=== PATIENT | female | born 1975 | race Asian ===

== ENCOUNTER 2022-06-22 11:40 | Outpatient (CLI) | payer BC, SELFPAY ==
--- OUTSIDE RECORDS SUMMARY | 2022-06-22 11:51 | XMS_ITS | Clinical Summary ---
:1975 Author Organization [facility] Address [address] [place] [address] Care Team Providers Name Role Phone Unavailable Primary Care Provider Unavailable Source Comments Patient records contain information from all sites at [facility]. For routine questions regarding patient records, call [phone] during business hours, M-F 8:00 AM - 5:00 PM Central Time. Record requests for emergency care only can be directed to [phone] at any time.[facility] Allergies No known active allergies Medications No known medications Active Problems No known active problems Immunizations Name Administration Dates Next Due Influenza (IM) Preservative Free 09/05/2008 Influenza Split 08/31/2002 Social History Tobacco Use Types Packs/Day Years Used Date Smoking Tobacco: Never Sex Assigned at Date Recorded Not on file Last Filed Vital Signs Vital Sign Reading Time Taken Comments Blood Pressure 100/50 09/28/2014 2:23 PM CASH MANAGER Pulse 80 09/28/2014 2:23 PM CASH MANAGER Temperature - - Respiratory Rate - - Oxygen Saturation - - Inhaled Oxygen Concentration - - Weight 51.1 kg (112 lb 10.5 oz) 09/28/2014 2:23 PM CASH MANAGER Height - - Body Mass Index - - Plan of Treatment Upcoming Encounters Date Type Specialty Care Team Description 08/18/2022 Comprehensive Visit Ophthalmology Elvin Villalba M.D. [address] [place], [place] [phone] (Wo rk) Health Maintenance Due Date Last Done Comments CT Colonography 1975 Cologuard 1975 Colonoscopy 1975 Colorectal Cancer Screening 1975 FIT 1975 Fasting Glucose for 1975 Diabetes Screening Fasting Lipid Panel 1975 HIV Screening 1975 Hepatitis B Vaccines (1 of 1975 3 - 3-dose series) Hepatitis C Screening 1975 Mammogram 1975 COVID-19 Vaccine (3 - 08/27/2021 03/27/2021, 02/27/2021 Booster for Moderna series) Depression Screening 11/01/2021 (Annual PHQ-2) Influenza Vaccine (#1) 2022 11/15/2017, 09/05/2008, 08/31/2002, Additional history exists Cervical Cancer Screening 04/18/2024 04/18/2021 DTaP,Tdap,and Td Vaccines 06/03/2025 06/03/2015 (2 - Td or Tdap) Pneumococcal vaccine (0-64 Aged Out No lo nger eligible years) based on patient 's age to complete this topic Insurance Payer Benefit Plan Subscriber ID Effective Phone Address Typ e / Group Dates BLUE CROSS BCBS BLUE [id number] 2019-Prese ATTN: Guilherme reyes HMO BLUE SHIELD PLUS O [facility] [address] [address] [place] [address]
--- OUTSIDE RECORDS SUMMARY | 2022-06-22 11:51 | XMS_ITS | Encounter Summary ---
:1975 Author Organization [facility] Address [address] [place] [address] Care Team Providers Name Role Phone Unavailable Primary Care Provider Unavailable Encounter Details Date Type Department Care Team Description 07/31/2008 Hospital Encounter HX [facility] ED Ruthie Blanchard, RShayNShay [address] [address] (Wo rk) Social History Tobacco Use Types Packs/Day Years Used Date Smoking Tobacco: Never Assessed Sex Assigned at Date Recorded Not on file documented as of this encounter Plan of Treatment Upcoming Encounters Date Type Specialty Care Team Description 08/18/2022 Comprehensive Visit Ophthalmology Elvin Villalba M.D. [address] [place], [place] [phone] (Wo rk) documented as of this encounter Visit Diagnoses Not on filedocumented in this encounter
--- OUTSIDE RECORDS SUMMARY | 2022-06-22 11:51 | XMS_ITS | Encounter Summary ---
:1975 Author Organization [facility] Address [address] [place] [address] Care Team Providers Name Role Phone Unavailable Primary Care Provider Unavailable Encounter Details Date Type Department Care Team Description 01/18/2017 Hospital Encounter HX [facility] Horacio Collins M.D. [address] [phone] (Wo rk) Social History Tobacco Use Types Packs/Day Years Used Date Smoking Tobacco: Never Sex Assigned at Date Recorded Not on file documented as of this encounter Progress Notes Elvin Hill M.D. - 01/18/2017 9:45 AM CDT [id number] The documentation for this visit is available in [facility] IMPRESSION/REPORT/PLAN #1 Myopia both eyes. Mild. #2 Dry eyes, both. Plan: Rx glasses. Ocular lubricants twice daily. F/u as needed. CE/ref Elvin Hill M.D./dmycndi Electronically Signed By: ELVIN HILL MD On: 01/22/2017 07:49 AM Source: [facility] [email or web address] Document Id: [id number] documented in this encounter Miscellaneous Notes Miscellaneous - Elvin Hill M.D. - 01/18/2017 10:26 AM CDT Ambulatory Patient Summary [facility] [address] [place] [id number] Visit Information Name: KAYLEE MARTINS [facility] Number: [id number] Current Date: 01/18/2017 10:26:55 Physicians Attending Provider: ELVIN HILL MD Primary Care Provider: PCP, BRENNEN KAYLEE MARTINS has been given the following list of follow-up instructions, medication list, and patient education materials: Follow-up Instructions Your Medications Here is a list of your medications. It is important to take your medications as directed. Use a pillbox or chart to help remind you to take your medications. Please let your doctor or nurse know if you have problems taking your medications. Medication/Strength How to Take Indications/Special Instructions/Comments/Notes for Patient Medication Changes/Routing loratadine (loratadine 10 mg oral tablet) 1 Tablet(s), Oral, once a day as needed for Allergy symptoms Stop Taking the Following Medications: Medication list as of 01-18-17 10:26 Attention: If you have any medications at home that are not on this list, DO NOT take them until youcontact your provider for clarification. Give a copy of your medication list to your primary care provider. Update your medication list any time medications or doses are changed and carry your medication list at all times in case of emergency. Electronically Signed By: ELVIN HILL MD Signed On:18-JAN-2017 10:26:53 Your Allergies & Intolerances Substance Reaction Symptoms Category Comments No Known Allergies Drug Your Problem List Problem Status Onset Comments No Problems found Your Upcoming Appointments Date Time Location Provider No Appointments found Attention: Contact your local Clinic if further appointment detail needed. Consider Using Patient Online Services Patient Online Services is a secure online and Mobile application that lets you: ?? View lab and test results ?? View portions of your medical record including clinical notes, immunizations and discharge summaries ?? Request an appointment or medication refill ?? Review your appointment schedule ?? Send secure messages to your care team Its easy to create an account if you dont have one. Go to [email or web address] and click on Create Your Account. Then, follow the directions to complete the online form. Youll be asked for your [facility] number which you can find at the top of this document. Your Goals/Additional instructions: Source: [facility] POWERCHART Document Id: [id number] Miscellaneous - Elvin Hill M.D. - 01/18/2017 10:26 AM CDT Ambulatory Discharge Medication List [facility] [address] [place] [id number] Visit Information Name: KAYLEE MARTINS [facility] Number: [id number] Current Date: 01/18/2017 10:26:54 Attending Provider: ELVIN HILL MD Primary Care Provider: PCP, ELSEWHERE KAYLEE MARTINS has been given the following list of medications: Your Medications It is important to take your medications as directed. Use a pill box or chart to help remind you to take your medications. Please let your doctor or nurse know if you have problems taking your medications. Medication/Strength How to Take Indications/Special Instructions/Comments/Notes for Patient Medication Changes/Routing loratadine (loratadine 10 mg oral tablet) 1 Tablet(s), Oral, once a day as needed for Allergy symptoms Stop Taking the Following Medications: Medication list as of 01-18-17 10:26 Attention: If you have any medications at home that are not on this list, DO NOT take them until youcontact your provider for clarification. Give a copy of your medication list to your primary care provider. Update your medication list any time medications or doses are changed and carry your medication list at all times in case of emergency. Electronically Signed By: ELVIN HILL MD Signed On:18-JAN-2017 10:26:53 Additional Information: Source: [facility] POWERCHART Document Id: [id number] documented in this encounter Plan of Treatment Upcoming Encounters Date Type Specialty Care Team Description 08/18/2022 Comprehensive Visit Ophthalmology Elvin Hill M.D. [address] [phone] (Wo rk) documented as of this encounter Visit Diagnoses Not on filedocumented in this encounter
--- OUTSIDE RECORDS SUMMARY | 2022-06-22 11:51 | XMS_ITS | Encounter Summary ---
:1975 Author Organization [facility] Address [address] [place] [address] Care Team Providers Name Role Phone Unavailable Primary Care Provider Unavailable Encounter Details Date Type Department Care Team Description 02/25/2021 Orders Only [facility] PCP [facility] Sa teddy Smart M.D. [address] [place], [place] [phone] (Sarah nunez) Social History Tobacco Use Types Packs/Day Years Used Date Smoking Tobacco: Never Sex Assigned at Date Recorded Not on file documented as of this encounter Plan of Treatment Upcoming Encounters Date Type Specialty Care Team Description 08/18/2022 Comprehensive Visit Ophthalmology Elvin Villalba M.D. [address] [place], [place] [phone] (Wo rk) documented as of this encounter Visit Diagnoses Not on filedocumented in this encounter
--- OUTSIDE RECORDS SUMMARY | 2022-06-22 11:51 | XMS_ITS | Encounter Summary ---
:1975 Author Organization [facility] Address [address] [place] [address] Care Team Providers Name Role Phone Unavailable Primary Care Provider Unavailable Encounter Details Date Type Department Care Team Description 09/05/2008 Hospital Encounter HX [facility] Stephan Wallace M.D. [address] [place], [place] [address] (Wo rk) Social History Tobacco Use Types Packs/Day Years Used Date Smoking Tobacco: Never Assessed Sex Assigned at Date Recorded Not on file documented as of this encounter Plan of Treatment Upcoming Encounters Date Type Specialty Care Team Description 08/18/2022 Comprehensive Visit Ophthalmology Elvin Villalba M.D. [address] [place], [place] [phone] (Wo rk) documented as of this encounter Visit Diagnoses Not on filedocumented in this encounter
--- OUTSIDE RECORDS SUMMARY | 2022-06-22 11:51 | XMS_ITS | Encounter Summary ---
:1975 Author Organization [facility] Address [address] [place] [address] Care Team Providers Name Role Phone Unavailable Primary Care Provider Unavailable Encounter Details Date Type Department Care Team Description 07/31/2008 Hospital Encounter HX [facility] Stephan Wallace M.D. [address] [place], [place] [address] (Wo rk) Social History Tobacco Use Types Packs/Day Years Used Date Smoking Tobacco: Never Assessed Sex Assigned at Date Recorded Not on file documented as of this encounter Plan of Treatment Upcoming Encounters Date Type Specialty Care Team Description 08/18/2022 Comprehensive Visit Ophthalmology Elvin Villalba M.D. [address] [place], [place] [phone] (Wo rk) documented as of this encounter Visit Diagnoses Not on filedocumented in this encounter
--- OUTSIDE RECORDS SUMMARY | 2022-06-22 11:51 | XMS_ITS | Encounter Summary ---
:1975 Author Organization [facility] Address [address] [place] [address] Care Team Providers Name Role Phone Unavailable Primary Care Provider Unavailable Reason for Referral Outpatient (Routine) - Closed Specialty Diagnoses / Procedures Referred By Contact Refer red To Contact Ophthalmology Elvin Villalba M.D. [facility] Region [address] [place] [phone] Referral ID Status Reason Start Date Expiration Date Visits Requ ested Visits Authorized [id number] Closed 05/13/2020 05/13/2021 1 1 Encounter Details Date Type Department Care Team Description 05/13/2020 Comprehensive Visit Department of Elvin Villalba Senile Nuclear Sclerosis Bilateral (Primary Dx); Ophthalmology omari Velasquez M.D. Myopia Bilateral [place], [place] [address] [place] [phone] Social History Tobacco Use Types Packs/Day Years Used Date Smoking Tobacco: Never Sex Assigned at Date Recorded Not on file documented as of this encounter Progress Notes Elvin Villalba M.D. - 05/13/2020 1:45 PM CDT Ivett Alexander was seen today for No chief complaint on file. #1 Myopia Bilateral #2 Cataract Senile Nuclear Sclerosis Bilateral Plan: Update glasses as desired. U/v protection. Ocular lubricants twice daily. F/u one year for routine exam or as needed. cex/ref documented in this encounter Plan of Treatment Upcoming Encounters Date Type Specialty Care Team Description 08/18/2022 Comprehensive Visit Ophthalmology Elvin Villalba M.D. [address] [place], [place] [phone] (Wo rk) Scheduled Referrals Name Type Priority Associated Order Schedule Diagnoses Ophthalmology office Outpatient Referral Routine Expected: visit (clinic) 05/13/2021 (Approximate), Expires: 05/13/2023 documented as of this encounter Visit Diagnoses Diagnosis Cataract Senile Nuclear Sclerosis Bilate ral - Primary Myopia Bilateral documented in this encounter
--- OUTSIDE RECORDS SUMMARY | 2022-06-22 11:51 | XMS_ITS | Encounter Summary ---
:1975 Author Organization [facility] Address [address] [place] [address] Care Team Providers Name Role Phone Unavailable Primary Care Provider Unavailable Reason for Referral Outpatient (Routine) - Closed Specialty Diagnoses / Procedures Referred By Contact Refer red To Contact Ophthalmology Elvin Villalba M.D. [facility] [address] [place] [phone] Referral ID Status Reason Start Date Expiration Date Visits Requ ested Visits Authorized [id number] Closed 04/18/2018 04/18/2019 1 1 Reason for Visit Reason Comments Eye Exam Outpatient (Routine) - Closed Specialty Diagnoses / Procedures Referred By Contact Refer red To Contact Diagnoses Dry Eye Syndrome Bilateral Elvin Villalba M.D. [address] [place] [address] Referral ID Status Reason Start Date Expiration Date Visits Requ ested Visits Authorized [id number] Closed 08/13/2017 02/09/2018 1 1 Encounter Details Date Type Department Care Team Description 04/18/2018 Office Visit Department of Elvin Villalba Myopia Bila teral (Primary Dx); Ophthalmology in [place] Dry Eye Syndrome Bilateral [place], [place] [address] [place] [phone] Social History Tobacco Use Types Packs/Day Years Used Date Smoking Tobacco: Never Sex Assigned at Date Recorded Not on file documented as of this encounter Progress Notes Elvin Villalba M.D. - 04/18/2018 1:10 PM CDT Ivett Alexander was seen today for Eye Exam #1 Dry Eye Syndrome Bilateral #2 Myopia Bilateral Plan: Update glasses as desired. U/v protection. Ocular lubricants twice daily. F/u one year for routine exam or as needed. cex/ documented in this encounter Plan of Treatment Upcoming Encounters Date Type Specialty Care Team Description 08/18/2022 Comprehensive Visit Ophthalmology Elvin Villalba M.D. [address] [place] [phone] (Wo rk) Scheduled Referrals Name Type Priority Associated Order Schedule Diagnoses Ophthalmology office Outpatient Referral Routine Expected: visit (clinic) 04/18/2019 (Approximate), Expires: 04/18/2021 documented as of this encounter Visit Diagnoses Diagnosis Myopia Bilateral - Primary Dry Eye Syndrome Bilateral documented in this encounter
--- OUTSIDE RECORDS SUMMARY | 2022-06-22 11:51 | XMS_ITS | Encounter Summary ---
:1975 Author Organization [facility] Address [address] [place] [address] Care Team Providers Name Role Phone Unavailable Primary Care Provider Unavailable Reason for Referral Outpatient (Routine) - Closed Specialty Diagnoses / Procedures Referred By Contact Refer red To Contact Procedures Elvin Villalba M.D. [facility] General eye exam [address] [place] [phone] Referral ID Status Reason Start Date Expiration Date Visits Requ ested Visits Authorized [id number] Closed 06/16/2021 06/16/2022 1 1 Reason for Visit Reason Comments Eye Exam Outpatient (Routine) - Closed Specialty Diagnoses / Procedures Referred By Contact Refer red To Contact Ophthalmology Elvin Villalba M.D. [facility] [address], [place] [address] Referral ID Status Reason Start Date Expiration Date Visits Requ ested Visits Authorized [id number] Closed 05/13/2020 05/13/2021 1 1 Encounter Details Date Type Department Care Team Description 06/16/2021 Comprehensive Visit Department of Elvin Villalba Myopia Bilateral (Primary Dx); Ophthalmology omari Velasquez M.D. Dry Eye Syndrome Bilateral; [place], [place] [address] Keratitis Superficial Bilate ral [address] [place] [phone] Social History Tobacco Use Types Packs/Day Years Used Date Smoking Tobacco: Never Sex Assigned at Date Recorded Not on file documented as of this encounter Progress Notes Elvin Villalba M.D. - 06/16/2021 9:45 AM CDT Ivett Alexander was seen today for Eye Exam #1 Myopia Bilateral #2 Dry Eye Syndrome Bilateral #3 Keratitis Superficial Bilateral Plan: Update glasses as desired. U/v protection. Ocular lubricants twice daily. F/u one year for routine exam or as needed. cex/ref documented in this encounter Plan of Treatment Upcoming Encounters Date Type Specialty Care Team Description 08/18/2022 Comprehensive Visit Ophthalmology Elvin Villalba M.D. [address] [place], [place] [phone] (Wo rk) Scheduled Orders Name Type Priority Associated Diagnoses Order S chedule OPH General eye exam Procedures Routine Expecte d: 06/16/2022 (Approximate), Expires: 06/16/2024 documented as of this encounter Visit Diagnoses Diagnosis Myopia Bilateral - Primary Dry Eye Syndrome Bilateral Keratitis Superficial Bilateral documented in this encounter
--- OUTSIDE RECORDS SUMMARY | 2022-06-22 11:51 | XMS_ITS | Encounter Summary ---
:1975 Author Organization [facility] Address [address] [place] [address] Care Team Providers Name Role Phone Unavailable Primary Care Provider Unavailable Encounter Details Date Type Department Care Team Description 09/28/2014 Hospital Encounter HX NO MAPPING Meir Mares M.D. [address] [place], [place] [phone] (Wo rk) Social History Tobacco Use Types Packs/Day Years Used Date Smoking Tobacco: Never Assessed Sex Assigned at Date Recorded Not on file documented as of this encounter Plan of Treatment Upcoming Encounters Date Type Specialty Care Team Description 08/18/2022 Comprehensive Visit Ophthalmology Elvin Villalba M.D. [address] [place], [place] [phone] (Wo rk) documented as of this encounter Visit Diagnoses Not on filedocumented in this encounter
--- OUTSIDE RECORDS SUMMARY | 2022-06-22 11:51 | XMS_ITS | Encounter Summary ---
:1975 Author Organization [facility] Address [address] [place] [address] Care Team Providers Name Role Phone Unavailable Primary Care Provider Unavailable Reason for Visit Reason Comments Eye Exam Outpatient (Routine) - Closed Specialty Diagnoses / Procedures Referred By Contact Refer red To Contact Ophthalmology Elvin Villalba M.D. [facility] [address] [place] [phone] Referral ID Status Reason Start Date Expiration Date Visits Requ ested Visits Authorized [id number] Closed 04/18/2018 04/18/2019 1 1 Encounter Details Date Type Department Care Team Description 04/17/2019 Comprehensive Visit Department of Elvin Villalba Myopia Bilateral (Primary Dx); Ophthalmology omari Velasquez M.D. Cataract Senile Nuclear Sclerosis [place], [place] [address] [place] [phone] Social History Tobacco Use Types Packs/Day Years Used Date Smoking Tobacco: Never Sex Assigned at Date Recorded Not on file documented as of this encounter Progress Notes Elvin Villalba M.D. - 04/17/2019 9:15 AM CDT Ivett Alexander was seen today for Eye Exam #1 Myopia Bilateral #2 Cataract Senile Nuclear Sclerosis Bilateral Plan: Update glasses as desired. U/v protection. Ocular lubricants twice daily. F/u one year for routine exam or as needed. cex/ref documented in this encounter Plan of Treatment Upcoming Encounters Date Type Specialty Care Team Description 08/18/2022 Comprehensive Visit Ophthalmology Elvin Villalba M.D. [address] [place], [place] [phone] (Wo rk) Scheduled Orders Name Type Priority Associated Diagnoses Order S chedule OPH General eye exam Procedures Routine Myopia Bilateral Exp ected: 04/17/2020 (Approximate), Expires: 04/17/2022 documented as of this encounter Visit Diagnoses Diagnosis Myopia Bilateral - Primary Cataract Senile Nuclear Sclerosis Bilate ral documented in this encounter
--- OUTSIDE RECORDS SUMMARY | 2022-06-22 11:51 | XMS_ITS | Encounter Summary ---
:1975 Author Organization [facility] Address [address] [place] [address] Care Team Providers Name Role Phone Unavailable Primary Care Provider Unavailable Encounter Details Date Type Department Care Team Description 01/18/2017 Hospital Encounter HX [facility] Horacio Villalba M.D. [address] [place], [place] [phone] (Wo rk) Social History Tobacco Use Types Packs/Day Years Used Date Smoking Tobacco: Never Sex Assigned at Date Recorded Not on file documented as of this encounter Plan of Treatment Upcoming Encounters Date Type Specialty Care Team Description 08/18/2022 Comprehensive Visit Ophthalmology Elvin Villalba M.D. [address] [place], [place] [phone] (Wo rk) documented as of this encounter Visit Diagnoses Not on filedocumented in this encounter
--- OUTSIDE RECORDS SUMMARY | 2022-06-22 11:51 | XMS_ITS | Encounter Summary ---
:1975 Author Organization [facility] Address [address] [place] [address] Care Team Providers Name Role Phone Unavailable Primary Care Provider Unavailable Encounter Details Date Type Department Care Team Description 01/18/[address] [facility] OPH Elvin Villalba M.D. [address], [place] [phone] (Wo rk) Social History Tobacco Use Types Packs/Day Years Used Date Smoking Tobacco: Never Sex Assigned at Date Recorded Not on file documented as of this encounter Progress Notes Elvin Villalba M.D. - 01/18/2017 9:49 AM CDT Eye General CHIEF COMPLAINT CE HISTORY OF PRESENT ILLNESS Here for an eye exam. Has been 3 to 4 yrs since she had her eyes checked. States night vision is notgood. IMPRESSION / REPORT / PLAN #1 Myopia both eyes. Mild. #2 Dry eyes, both. Plan: Rx glasses. Ocular lubricants twice daily. F/u as needed. CE/ref DIAGNOSIS #1 Myopia both eyes. Mild. #2 Dry eyes, both. CDM Reports - EYEGEN Id: [id number] Status: Fnl Electronically signed by Prieto [facility] Ophthalmology Notes [id number] at 04/21/2017 1:03 PM CDT documented in this encounter Plan of Treatment Upcoming Encounters Date Type Specialty Care Team Description 08/18/2022 Comprehensive Visit Ophthalmology Elvin Villalba M.D. [address], [place] [phone] (Wo rk) documented as of this encounter Visit Diagnoses Not on filedocumented in this encounter
--- OUTSIDE RECORDS SUMMARY | 2022-06-22 11:51 | XMS_ITS | Encounter Summary ---
:1975 Author Organization [facility] Address [address] [place] [address] Care Team Providers Name Role Phone Unavailable Primary Care Provider Unavailable Encounter Details Date Type Department Care Team Description 10/04/2008 Hospital Encounter [facility] Maykel Wright M.D. Social History Tobacco Use Types Packs/Day Years Used Date Smoking Tobacco: Never Assessed Sex Assigned at Date Recorded Not on file documented as of this encounter Plan of Treatment Upcoming Encounters Date Type Specialty Care Team Description 08/18/2022 Comprehensive Visit Ophthalmology Elvin Villalba M.D. [address] [place], [place] [phone] (Wo rk) documented as of this encounter Visit Diagnoses Not on filedocumented in this encounter
--- OUTSIDE RECORDS SUMMARY | 2022-06-22 11:51 | XMS_ITS | Encounter Summary ---
:1975 Author Organization [facility] Address [address] [place] [address] Care Team Providers Name Role Phone Unavailable Primary Care Provider Unavailable Encounter Details Date Type Department Care Team Description 08/06/2008 Hospital Encounter HX [facility] Stephan Wallace M.D. [address] [place], [place] [phone] (Wo rk) Social History Tobacco Use Types Packs/Day Years Used Date Smoking Tobacco: Never Assessed Sex Assigned at Date Recorded Not on file documented as of this encounter Plan of Treatment Upcoming Encounters Date Type Specialty Care Team Description 08/18/2022 Comprehensive Visit Ophthalmology Elvin Villalba M.D. [address] [place], [place] [phone] (Wo rk) documented as of this encounter Visit Diagnoses Not on filedocumented in this encounter
--- OUTSIDE RECORDS SUMMARY | 2022-06-22 11:51 | XMS_ITS | Encounter Summary ---
:1975 Author Organization [facility] Address [address] [place] [address] Care Team Providers Name Role Phone Unavailable Primary Care Provider Unavailable Reason for Referral Outpatient (Routine) - Closed Specialty Diagnoses / Procedures Referred By Contact Refer red To Contact Diagnoses Dry Eye Syndrome Bilateral Elvin Villalba M.D. [address] [place] [phone] Referral ID Status Reason Start Date Expiration Date Visits Requ ested Visits Authorized [id number] Closed 08/13/2017 02/09/2018 1 1 Encounter Details Date Type Department Care Team Description 08/13/2017 Orders Only Department of Elvin Villalba, Dry Eye Syn drome Ophthalmology in [place], [place] [address] [place] [phone] Social History Tobacco Use Types Packs/Day Years Used Date Smoking Tobacco: Never Sex Assigned at Date Recorded Not on file documented as of this encounter Plan of Treatment Upcoming Encounters Date Type Specialty Care Team Description 08/18/2022 Comprehensive Visit Ophthalmology Elvin Villalba M.D. [address] [place] [phone] (Wo rk) Scheduled Referrals Name Type Priority Associated Order Schedule Diagnoses Ophthalmology office Outpatient Referral Routine Dry Eye Syndr ome Expected: visit (clinic) Bilateral 01/18/2018 (Approximate), Expires: 01/22/2023 documented as of this encounter Visit Diagnoses Diagnosis Dry Eye Syndrome Bilateral documented in this encounter
--- OUTSIDE RECORDS SUMMARY | 2022-06-22 11:51 | XMS_ITS | Encounter Summary ---
:1975 Author Organization [facility] Address [address] [place] [address] Care Team Providers Name Role Phone Unavailable Primary Care Provider Unavailable Encounter Details Date Type Department Care Team Description 09/28/2014 Hospital Encounter HX [facility] URGENTCAR Justino Gallo M.D. [address] [place] [phone] (Wo mayra) Social History Tobacco Use Types Packs/Day Years Used Date Smoking Tobacco: Never Assessed Sex Assigned at Date Recorded Not on file documented as of this encounter Last Filed Vital Signs Vital Sign Reading Time Taken Comments Blood Pressure 100/50 09/28/2014 2:23 PM ACCOUNT PLANNER Pulse 80 09/28/2014 2:23 PM ACCOUNT PLANNER Temperature - - Respiratory Rate - - Oxygen Saturation - - Inhaled Oxygen Concentration - - Weight 51.1 kg (112 lb 10.5 oz) 09/28/2014 2:23 PM ACCOUNT PLANNER Height - - Body Mass Index - - documented in this encounter Progress Notes Arnold Gallo M.D. - 09/28/2014 1:58 PM CST [id number] HISTORY OF PRESENT ILLNESS Patient presents with a sore throat that started yesterday. She says it is somewhat uncomfortable toswallow. She wonders if it might be a fishbone stuck in her throat. She has not had a cough or nasaldrainage. No fever. No known exposure other than to eating a fish yesterday. She has not had this inthe past. She comes in with her son. MEDICATIONS Reviewed. ALLERGIES Reviewed. VITAL SIGNS Per EMR. She denies any risk of . PHYSICAL EXAMINATION TMs show evidence of fluid bilaterally but no infection. No sinus tenderness. No adenopathy in the neck. She complains of pain on the left thyroid area, deeper though. No superficial pain. Her mouth did not show any evidence of foreign body. IMPRESSION/REPORT/PLAN 1. Upper respiratory infection, probably viral. 2. Questionable foreign body in her throat. This could have already been dislodged. I recommended atthis time see if Lidia Sorenson would help and if it is not better next week she may need to see ENT for scoping. She will consider that. Contact her primary if this should worsen or not improve. Arnold Gallo M.D./juliano Electronically Signed By: ARNOLD GALLO MD On: 10/01/2014 08:08 AM Source: [facility] [email or web address] Document Id: [id number] UNT PLANNER documented in this encounter Miscellaneous Notes Miscellaneous - Alan Martin, R.N. - 09/28/2014 2:23 PM CST Adult Information Systems Architect Intake/History Adult Information Systems Architect Intake/History Entered On: 09/28/2014 14:26 ACCOUNT PLANNER Performed On: 09/28/2014 14:23 ACCOUNT PLANNER by ALAN MARTIN Intake Chief Complaint : Sore throat since yesterday, hurts to swallow. bone stuck in throat Temperature Oral : 36.6 DegC(Converted to: 97.9 DegF) Peripheral Pulse Rate : 80 /min Heart Rhythm : Regular Systolic Blood Pressure : 100 mmHg Diastolic Blood Pressure : 50 mmHg (LOW) NIBP Mean : 67 mmHg BP Location : Right upper extremity Blood Pressure Cuff Size : Regular Actual Weight : 51.1 kg(Converted to: 112 lb 10 oz) Dosing Weight Clinic : 51.1 kg ALAN MARTIN - 09/28/2014 14:23 ACCOUNT PLANNER General Info Information Given By : Patient Preferred Communication Mode : Verbal Languages : Lithuanian Is Patient Female and 13-50 no hysterectomy : Yes Status : Patient denies Are you ? : No ALAN MARTIN - 09/28/2014 14:23 ACCOUNT PLANNER Subjective Pain Symptoms : No ALAN MARTIN - 09/28/2014 14:23 ACCOUNT PLANNER Dependent Habits Tobacco Use/Currently Using : No Smoking Status : Never smoker ALAN MARTIN - 09/28/2014 14:23 ACCOUNT PLANNER ID Screen Travel Within Last 21 Days : No ALAN MARTIN - 09/28/2014 14:23 ACCOUNT PLANNER Source: [facility] [employer] Document Id: [id number] ACCOUNT PLANNER!27 UNT PLANNER documented in this encounter Plan of Treatment Upcoming Encounters Date Type Specialty Care Team Description 08/18/2022 Comprehensive Visit Ophthalmology Elvin Villalba M.D. [address], [place] [phone] (Wo rk) documented as of this encounter Visit Diagnoses Not on filedocumented in this encounter
--- OUTSIDE RECORDS SUMMARY | 2022-06-22 11:52 | XMS_ITS | Encounter Summary ---
:1975 Author Organization [facility] Address [address] [place] [address] Care Team Providers Name Role Phone Unavailable Primary Care Provider Unavailable Encounter Details Date Type Department Care Team Description 09/08/2004 Hospital Encounter [facility]X [facility] Social History Tobacco Use Types Packs/Day Years Used Date Smoking Tobacco: Never Assessed Sex Assigned at Date Recorded Not on file documented as of this encounter Plan of Treatment Upcoming Encounters Date Type Specialty Care Team Description 08/18/2022 Comprehensive Visit Ophthalmology Elvin Villalba M.D. [address] [place], [place] [phone] (Wo rk) documented as of this encounter Visit Diagnoses Not on filedocumented in this encounter
--- OUTSIDE RECORDS SUMMARY | 2022-06-22 11:52 | XMS_ITS | Encounter Summary ---
:1975 Author Organization [facility] Address [address] [place] [address] Care Team Providers Name Role Phone Unavailable Primary Care Provider Unavailable Encounter Details Date Type Department Care Team Description 07/25/2008 Hospital Encounter HX [facility] ENT Gabe Jasso M.D. [address] [phone] (Wo rk) Social History Tobacco Use Types Packs/Day Years Used Date Smoking Tobacco: Never Assessed Sex Assigned at Date Recorded Not on file documented as of this encounter Plan of Treatment Upcoming Encounters Date Type Specialty Care Team Description 08/18/2022 Comprehensive Visit Ophthalmology Elvin Villalba M.D. [address] [place], [place] [phone] (Wo rk) documented as of this encounter Visit Diagnoses Not on filedocumented in this encounter
--- OUTSIDE RECORDS SUMMARY | 2022-06-22 11:52 | XMS_ITS | Encounter Summary ---
:1975 Author Organization [facility] Address [address] [place] [address] Care Team Providers Name Role Phone Unavailable Primary Care Provider Unavailable Encounter Details Date Type Department Care Team Description 07/17/2008 Hospital Encounter HX [facility] ENT Gabe Jasso M.D. [address] [phone] (Wo rk) Social History Tobacco Use Types Packs/Day Years Used Date Smoking Tobacco: Never Assessed Sex Assigned at Date Recorded Not on file documented as of this encounter Plan of Treatment Upcoming Encounters Date Type Specialty Care Team Description 08/18/2022 Comprehensive Visit Ophthalmology Elvin Villalba M.D. [address] [place], [place] [phone] (Wo rk) documented as of this encounter Visit Diagnoses Not on filedocumented in this encounter
--- OUTSIDE RECORDS SUMMARY | 2022-06-22 11:52 | XMS_ITS | Encounter Summary ---
:1975 Author Organization [facility] Address [address] [place] [address] Care Team Providers Name Role Phone Unavailable Primary Care Provider Unavailable Encounter Details Date Type Department Care Team Description 02/04/2004 Hospital Encounter HX [facility] OBGYN Provider, Histor ical Social History Tobacco Use Types Packs/Day Years Used Date Smoking Tobacco: Never Assessed Sex Assigned at Date Recorded Not on file documented as of this encounter Plan of Treatment Upcoming Encounters Date Type Specialty Care Team Description 08/18/2022 Comprehensive Visit Ophthalmology Elvin Villlaba M.D. [address] [place], [place] [phone] (Wo rk) documented as of this encounter Visit Diagnoses Not on filedocumented in this encounter
--- OUTSIDE RECORDS SUMMARY | 2022-06-22 11:52 | XMS_ITS | Encounter Summary ---
:1975 Author Organization [facility] Address [address] [place] [address] Care Team Providers Name Role Phone Unavailable Primary Care Provider Unavailable Encounter Details Date Type Department Care Team Description 09/23/2004 Hospital Encounter HX NO MAPPING Emma Marques Au. D. Social History Tobacco Use Types Packs/Day Years Used Date Smoking Tobacco: Never Assessed Sex Assigned at Date Recorded Not on file documented as of this encounter Plan of Treatment Upcoming Encounters Date Type Specialty Care Team Description 08/18/2022 Comprehensive Visit Ophthalmology Elvin Villalba M.D. [address] [place], [place] [phone] (Wo rk) documented as of this encounter Visit Diagnoses Not on filedocumented in this encounter
--- OUTSIDE RECORDS SUMMARY | 2022-06-22 11:52 | XMS_ITS | Encounter Summary ---
:[address] [facility] Address [address] [place] [address] Care Team Providers Name Role Phone Unavailable Primary Care Provider Unavailable Encounter Details Date Type Department Care Team Description 09/08/2004 Hospital Encounter HX [facility] OBGYN Provider, Histor ical Social History Tobacco Use Types Packs/Day Years Used Date Smoking Tobacco: Never Assessed Sex Assigned at Date Recorded Not on file documented as of this encounter Plan of Treatment Upcoming Encounters Date Type Specialty Care Team Description 08/18/2022 Comprehensive Visit Ophthalmology Elvin Villalba M.D. [address] [place], [place] [phone] (Wo rk) documented as of this encounter Visit Diagnoses Not on filedocumented in this encounter
--- OUTSIDE RECORDS SUMMARY | 2022-06-22 11:52 | XMS_ITS | Encounter Summary ---
:1975 Author Organization [facility] Address [address] [place] [address] Care Team Providers Name Role Phone Unavailable Primary Care Provider Unavailable Encounter Details Date Type Department Care Team Description 09/17/2004 Hospital Encounter HX [facility] Horacio Collins M.D. [address], [place] [phone] (Wo rk) Social History Tobacco Use Types Packs/Day Years Used Date Smoking Tobacco: Never Assessed Sex Assigned at Date Recorded Not on file documented as of this encounter Plan of Treatment Upcoming Encounters Date Type Specialty Care Team Description 08/18/2022 Comprehensive Visit Ophthalmology Elvin Villalba M.D. [address] [place], [place] [phone] (Wo rk) documented as of this encounter Visit Diagnoses Not on filedocumented in this encounter
--- OUTSIDE RECORDS SUMMARY | 2022-06-22 11:52 | XMS_ITS | Encounter Summary ---
:1975 Author Organization [facility] Address [address] [place] [address] Care Team Providers Name Role Phone Unavailable Primary Care Provider Unavailable Encounter Details Date Type Department Care Team Description 09/17/2004 Hospital Encounter HX [facility] ENT Gabe Jasso M.D. [address] [phone] (Wo rk) Social History Tobacco Use Types Packs/Day Years Used Date Smoking Tobacco: Never Assessed Sex Assigned at Date Recorded Not on file documented as of this encounter Plan of Treatment Upcoming Encounters Date Type Specialty Care Team Description 08/18/2022 Comprehensive Visit Ophthalmology Elvin Villalba M.D. [address] [place], [place] [phone] (Wo rk) documented as of this encounter Visit Diagnoses Not on filedocumented in this encounter
--- OUTSIDE RECORDS SUMMARY | 2022-06-22 11:52 | XMS_ITS | Encounter Summary ---
:1975 Author Organization [facility] Address [address] [place] [address] Care Team Providers Name Role Phone Unavailable Primary Care Provider Unavailable Encounter Details Date Type Department Care Team Description 07/18/2008 Hospital Encounter HX [facility] Horacio Collins M.D. [address], [place] [phone] (Wo rk) Social History Tobacco Use Types Packs/Day Years Used Date Smoking Tobacco: Never Assessed Sex Assigned at Date Recorded Not on file documented as of this encounter Plan of Treatment Upcoming Encounters Date Type Specialty Care Team Description 08/18/2022 Comprehensive Visit Ophthalmology Elvin Villalba M.D. [address] [place], [place] [phone] (Wo rk) documented as of this encounter Visit Diagnoses Not on filedocumented in this encounter
--- OUTSIDE RECORDS SUMMARY | 2022-06-22 11:52 | XMS_ITS | Encounter Summary ---
:1975 Author Organization [facility] Address [address] [place] [address] Care Team Providers Name Role Phone Unavailable Primary Care Provider Unavailable Encounter Details Date Type Department Care Team Description 07/17/2008 Hospital Encounter HX [facility] FAMILYPRA Justino Gallo M.D. [address] [place] [phone] (Sarah nunez) Social History Tobacco Use Types Packs/Day Years Used Date Smoking Tobacco: Never Assessed Sex Assigned at Date Recorded Not on file documented as of this encounter Plan of Treatment Upcoming Encounters Date Type Specialty Care Team Description 08/18/2022 Comprehensive Visit Ophthalmology Elvin Villalba M.D. [address] [place], [place] [phone] (Sarah nunez) documented as of this encounter Visit Diagnoses Not on filedocumented in this encounter
--- OUTSIDE RECORDS SUMMARY | 2022-06-22 11:52 | XMS_ITS | Encounter Summary ---
:1975 Author Organization [facility] Address [address] [place] [address] Care Team Providers Name Role Phone Unavailable Primary Care Provider Unavailable Encounter Details Date Type Department Care Team Description 08/08/2004 Hospital Encounter HX [facility] Stephan Wallace M.D. [address] [place], [place] [phone] (Wo rk) Social History Tobacco Use Types Packs/Day Years Used Date Smoking Tobacco: Never Assessed Sex Assigned at Date Recorded Not on file documented as of this encounter Plan of Treatment Upcoming Encounters Date Type Specialty Care Team Description 08/18/2022 Comprehensive Visit Ophthalmology Elvin Villalba M.D. [address] [place], [place] [phone] (Wo rk) documented as of this encounter Visit Diagnoses Not on filedocumented in this encounter
--- OUTSIDE RECORDS SUMMARY | 2022-06-22 11:52 | XMS_ITS | Encounter Summary ---
:1975 Author Organization [facility] Address [address] [place] [address] Care Team Providers Name Role Phone Unavailable Primary Care Provider Unavailable Encounter Details Date Type Department Care Team Description 07/02/2004 Hospital Encounter HX [facility] OBGYN Provider, Histor ical Social History Tobacco Use Types Packs/Day Years Used Date Smoking Tobacco: Never Assessed Sex Assigned at Date Recorded Not on file documented as of this encounter Plan of Treatment Upcoming Encounters Date Type Specialty Care Team Description 08/18/2022 Comprehensive Visit Ophthalmology Elvin Villalba M.D. [address] [place], [place] [phone] (Wo rk) documented as of this encounter Visit Diagnoses Not on filedocumented in this encounter
--- OUTSIDE RECORDS SUMMARY | 2022-06-22 11:52 | XMS_ITS | Encounter Summary ---
:1975 Author Organization [facility] Address [address] [place] [address] Care Team Providers Name Role Phone Unavailable Primary Care Provider Unavailable Encounter Details Date Type Department Care Team Description 07/14/2008 Hospital Encounter HX [facility] URGENTCAR Shelby Rivera, ANESTHESIA RESIDENT, R.N. [address] [place] [address] (Wo rk) Social History Tobacco Use Types Packs/Day Years Used Date Smoking Tobacco: Never Assessed Sex Assigned at Date Recorded Not on file documented as of this encounter Plan of Treatment Upcoming Encounters Date Type Specialty Care Team Description 08/18/2022 Comprehensive Visit Ophthalmology Elvin Villalba M.D. [address] [place], [place] [phone] (Wo rk) documented as of this encounter Visit Diagnoses Not on filedocumented in this encounter
--- OUTSIDE RECORDS SUMMARY | 2022-06-22 11:52 | XMS_ITS | Encounter Summary ---
:1975 Author Organization [facility] Address [address] [place] [address] Care Team Providers Name Role Phone Unavailable Primary Care Provider Unavailable Encounter Details Date Type Department Care Team Description 07/23/2004 Hospital Encounter HX [facility] OBGYN Provider, Histor ical Social History Tobacco Use Types Packs/Day Years Used Date Smoking Tobacco: Never Assessed Sex Assigned at Date Recorded Not on file documented as of this encounter Plan of Treatment Upcoming Encounters Date Type Specialty Care Team Description 08/18/2022 Comprehensive Visit Ophthalmology Elvin Villalba M.D. [address] [place], [place] [phone] (Wo rk) documented as of this encounter Visit Diagnoses Not on filedocumented in this encounter
--- OUTSIDE RECORDS SUMMARY | 2022-06-22 11:52 | XMS_ITS | Encounter Summary ---
:1975 Author Organization [facility] Address [address] [place] [address] Care Team Providers Name Role Phone Unavailable Primary Care Provider Unavailable Encounter Details Date Type Department Care Team Description 09/23/2004 Hospital Encounter HX [facility] ENT Gabe Jasso M.D. [address] [phone] (Wo rk) Social History Tobacco Use Types Packs/Day Years Used Date Smoking Tobacco: Never Assessed Sex Assigned at Date Recorded Not on file documented as of this encounter Plan of Treatment Upcoming Encounters Date Type Specialty Care Team Description 08/18/2022 Comprehensive Visit Ophthalmology Elvin Villalba M.D. [address] [place], [place] [phone] (Wo rk) documented as of this encounter Visit Diagnoses Not on filedocumented in this encounter
--- OUTSIDE RECORDS SUMMARY | 2022-06-22 11:52 | XMS_ITS | Encounter Summary ---
:1975 Author Organization [facility] Address [address] [place] [address] Care Team Providers Name Role Phone Unavailable Primary Care Provider Unavailable Encounter Details Date Type Department Care Team Description 07/16/2004 Hospital Encounter HX [facility] OBGYN Provider, Histor ical Social History Tobacco Use Types Packs/Day Years Used Date Smoking Tobacco: Never Assessed Sex Assigned at Date Recorded Not on file documented as of this encounter Plan of Treatment Upcoming Encounters Date Type Specialty Care Team Description 08/18/2022 Comprehensive Visit Ophthalmology Elvin Villalba M.D. [address] [place], [place] [phone] (Wo rk) documented as of this encounter Visit Diagnoses Not on filedocumented in this encounter
--- OUTSIDE RECORDS SUMMARY | 2022-06-22 11:52 | XMS_ITS | Encounter Summary ---
:1975 Author Organization [facility] Address [address] [place] [address] Care Team Providers Name Role Phone Unavailable Primary Care Provider Unavailable Encounter Details Date Type Department Care Team Description 04/22/2004 Hospital Encounter HX [facility]OC OBGYN Provider, Histor ical Social History Tobacco Use Types Packs/Day Years Used Date Smoking Tobacco: Never Assessed Sex Assigned at Date Recorded Not on file documented as of this encounter Plan of Treatment Upcoming Encounters Date Type Specialty Care Team Description 08/18/2022 Comprehensive Visit Ophthalmology Elvin Villalba M.D. [address] [place], [place] [phone] (Wo rk) documented as of this encounter Visit Diagnoses Not on filedocumented in this encounter
--- OUTSIDE RECORDS SUMMARY | 2022-06-22 11:52 | XMS_ITS | Encounter Summary ---
:1975 Author Organization [facility] Address [address] [place] [address] Care Team Providers Name Role Phone Unavailable Primary Care Provider Unavailable Encounter Details Date Type Department Care Team Description 04/22/2004 Hospital Encounter HX [facility] ED Ruthie Blanchard, RShayNShay [address], [place] [address] (Wo rk) Social History Tobacco Use Types Packs/Day Years Used Date Smoking Tobacco: Never Assessed Sex Assigned at Date Recorded Not on file documented as of this encounter Plan of Treatment Upcoming Encounters Date Type Specialty Care Team Description 08/18/2022 Comprehensive Visit Ophthalmology Elvin Villalba M.D. [address] [place], [place] [phone] (Wo rk) documented as of this encounter Visit Diagnoses Not on filedocumented in this encounter
--- OUTSIDE RECORDS SUMMARY | 2022-06-22 11:52 | XMS_ITS | Encounter Summary ---
:1975 Author Organization [facility] Address [address] [place] [address] Care Team Providers Name Role Phone Unavailable Primary Care Provider Unavailable Encounter Details Date Type Department Care Team Description 03/03/2004 Hospital Encounter HX [facility]OC OBGYN Provider, Histor ical Social History Tobacco Use Types Packs/Day Years Used Date Smoking Tobacco: Never Assessed Sex Assigned at Date Recorded Not on file documented as of this encounter Plan of Treatment Upcoming Encounters Date Type Specialty Care Team Description 08/18/2022 Comprehensive Visit Ophthalmology Elvin Villalba M.D. [address] [place], [place] [phone] (Wo rk) documented as of this encounter Visit Diagnoses Not on filedocumented in this encounter
--- OUTSIDE RECORDS SUMMARY | 2022-06-22 11:52 | XMS_ITS | Encounter Summary ---
:1975 Author Organization [facility] Address [address] [place] [address] Care Team Providers Name Role Phone Unavailable Primary Care Provider Unavailable Encounter Details Date Type Department Care Team Description 03/10/2004 Hospital Encounter [facility] OBGYN Provider, Histor ical Social History Tobacco Use Types Packs/Day Years Used Date Smoking Tobacco: Never Assessed Sex Assigned at Date Recorded Not on file documented as of this encounter Plan of Treatment Upcoming Encounters Date Type Specialty Care Team Description 08/18/2022 Comprehensive Visit Ophthalmology Elvin Villalba M.D. [address] [place], [place] [phone] (Wo rk) documented as of this encounter Visit Diagnoses Not on filedocumented in this encounter
--- OUTSIDE RECORDS SUMMARY | 2022-06-22 11:52 | XMS_ITS | Encounter Summary ---
:1975 Author Organization [facility] Address [address] [place] [address] Care Team Providers Name Role Phone Unavailable Primary Care Provider Unavailable Encounter Details Date Type Department Care Team Description 05/18/2008 Hospital Encounter [facility]X [facility]ILY[facility] Helga Salazar M.D. Social History Tobacco Use Types Packs/Day Years Used Date Smoking Tobacco: Never Assessed Sex Assigned at Date Recorded Not on file documented as of this encounter Plan of Treatment Upcoming Encounters Date Type Specialty Care Team Description 08/18/2022 Comprehensive Visit Ophthalmology Elvin Villalba M.D. [address] [place], [place] [phone] (Wo rk) documented as of this encounter Visit Diagnoses Not on filedocumented in this encounter
--- OUTSIDE RECORDS SUMMARY | 2022-06-22 11:52 | XMS_ITS | Encounter Summary ---
:1975 Author Organization [facility] Address [address] [place] [address] Care Team Providers Name Role Phone Unavailable Primary Care Provider Unavailable Encounter Details Date Type Department Care Team Description 07/18/2008 Hospital Encounter [facility]X [facility] ENT Gabe Jasso M.D. [address] [phone] (Wo rk) Social History Tobacco Use Types Packs/Day Years Used Date Smoking Tobacco: Never Assessed Sex Assigned at Date Recorded Not on file documented as of this encounter Plan of Treatment Upcoming Encounters Date Type Specialty Care Team Description 08/18/2022 Comprehensive Visit Ophthalmology Elvin Villalba M.D. [address] [place], [place] [phone] (Wo rk) documented as of this encounter Visit Diagnoses Not on filedocumented in this encounter
--- OUTSIDE RECORDS SUMMARY | 2022-06-22 11:52 | XMS_ITS | Encounter Summary ---
:1975 Author Organization [facility] Address [address] [place] [address] Care Team Providers Name Role Phone Unavailable Primary Care Provider Unavailable Encounter Details Date Type Department Care Team Description 04/30/2004 Hospital Encounter [facility]X [facility] OBGYN Provider, Histor ical Social History Tobacco Use Types Packs/Day Years Used Date Smoking Tobacco: Never Assessed Sex Assigned at Date Recorded Not on file documented as of this encounter Plan of Treatment Upcoming Encounters Date Type Specialty Care Team Description 08/18/2022 Comprehensive Visit Ophthalmology Elvin Villalba M.D. [address] [place], [place] [phone] (Wo rk) documented as of this encounter Visit Diagnoses Not on filedocumented in this encounter
--- OUTSIDE RECORDS SUMMARY | 2022-06-22 11:52 | XMS_ITS | Encounter Summary ---
:1975 Author Organization [facility] Address [address] [place] [address] Care Team Providers Name Role Phone Unavailable Primary Care Provider Unavailable Encounter Details Date Type Department Care Team Description 01/07/2004 Hospital Encounter [facility] ED Ruthie Blanchard, RShayNShay [address] [address] (Wo rk) Social History Tobacco Use Types Packs/Day Years Used Date Smoking Tobacco: Never Assessed Sex Assigned at Date Recorded Not on file documented as of this encounter Plan of Treatment Upcoming Encounters Date Type Specialty Care Team Description 08/18/2022 Comprehensive Visit Ophthalmology Elvin Villalba M.D. [address] [place], [place] [phone] (Wo rk) documented as of this encounter Visit Diagnoses Not on filedocumented in this encounter
--- OUTSIDE RECORDS SUMMARY | 2022-06-22 11:52 | XMS_ITS | Encounter Summary ---
:1975 Author Organization [facility] Address [address] [place] [address] Care Team Providers Name Role Phone Unavailable Primary Care Provider Unavailable Encounter Details Date Type Department Care Team Description 04/21/2004 Hospital Encounter [facility]X [facility] OBGYN Provider, Histor ical Social History Tobacco Use Types Packs/Day Years Used Date Smoking Tobacco: Never Assessed Sex Assigned at Date Recorded Not on file documented as of this encounter Plan of Treatment Upcoming Encounters Date Type Specialty Care Team Description 08/18/2022 Comprehensive Visit Ophthalmology Elvin Villalba M.D. [address] [place], [place] [phone] (Wo rk) documented as of this encounter Visit Diagnoses Not on filedocumented in this encounter
--- OUTSIDE RECORDS SUMMARY | 2022-06-22 11:52 | XMS_ITS | Encounter Summary ---
:1975 Author Organization [facility] Address [address] [place] [address] Care Team Providers Name Role Phone Unavailable Primary Care Provider Unavailable Encounter Details Date Type Department Care Team Description 04/01/2004 Hospital Encounter HX [facility] OBGYN Provider, Histor ical Social History Tobacco Use Types Packs/Day Years Used Date Smoking Tobacco: Never Assessed Sex Assigned at Date Recorded Not on file documented as of this encounter Plan of Treatment Upcoming Encounters Date Type Specialty Care Team Description 08/18/2022 Comprehensive Visit Ophthalmology Elvin Villalba M.D. [address] [place], [place] [phone] (Wo rk) documented as of this encounter Visit Diagnoses Not on filedocumented in this encounter
--- OUTSIDE RECORDS SUMMARY | 2022-06-22 11:52 | XMS_ITS | Encounter Summary ---
:1975 Author Organization [facility] Address [address] [place] [address] Care Team Providers Name Role Phone Unavailable Primary Care Provider Unavailable Encounter Details Date Type Department Care Team Description 06/18/2004 Hospital Encounter HX [facility] OBGYN Provider, Histor ical Social History Tobacco Use Types Packs/Day Years Used Date Smoking Tobacco: Never Assessed Sex Assigned at Date Recorded Not on file documented as of this encounter Plan of Treatment Upcoming Encounters Date Type Specialty Care Team Description 08/18/2022 Comprehensive Visit Ophthalmology Elvin Villalba M.D. [address] [place], [place] [phone] (Wo rk) documented as of this encounter Visit Diagnoses Not on filedocumented in this encounter
--- OUTSIDE RECORDS SUMMARY | 2022-06-22 11:52 | XMS_ITS | Encounter Summary ---
:1975 Author Organization [facility] Address [address] [place] [address] Care Team Providers Name Role Phone Unavailable Primary Care Provider Unavailable Encounter Details Date Type Department Care Team Description 05/16/2004 Hospital Encounter HX [facility] OBGYN Provider, Histor ical Social History Tobacco Use Types Packs/Day Years Used Date Smoking Tobacco: Never Assessed Sex Assigned at Date Recorded Not on file documented as of this encounter Plan of Treatment Upcoming Encounters Date Type Specialty Care Team Description 08/18/2022 Comprehensive Visit Ophthalmology Elvin Villalba M.D. [address] [place], [place] [phone] (Wo rk) documented as of this encounter Visit Diagnoses Not on filedocumented in this encounter
--- OUTSIDE RECORDS SUMMARY | 2022-06-22 11:52 | XMS_ITS | Encounter Summary ---
:1975 Author Organization [facility] Address [address] [place] [address] Care Team Providers Name Role Phone Unavailable Primary Care Provider Unavailable Encounter Details Date Type Department Care Team Description 07/24/2004 Hospital Encounter HX [facility] Stephan Wallace M.D. [address] [place], [place] [phone] (Wo rk) Social History Tobacco Use Types Packs/Day Years Used Date Smoking Tobacco: Never Assessed Sex Assigned at Date Recorded Not on file documented as of this encounter Plan of Treatment Upcoming Encounters Date Type Specialty Care Team Description 08/18/2022 Comprehensive Visit Ophthalmology Elvin Villalba M.D. [address] [place], [place] [phone] (Wo rk) documented as of this encounter Visit Diagnoses Not on filedocumented in this encounter
--- OUTSIDE RECORDS SUMMARY | 2022-06-22 11:52 | XMS_ITS | Encounter Summary ---
:1975 Author Organization [facility] Address [address] [place] [address] Care Team Providers Name Role Phone Unavailable Primary Care Provider Unavailable Encounter Details Date Type Department Care Team Description 07/18/2008 Hospital Encounter HX NO MAPPING Provider, Historical Social History Tobacco Use Types Packs/Day Years Used Date Smoking Tobacco: Never Assessed Sex Assigned at Date Recorded Not on file documented as of this encounter Plan of Treatment Upcoming Encounters Date Type Specialty Care Team Description 08/18/2022 Comprehensive Visit Ophthalmology Elvin Villalba M.D. [address] [phone] (Wo rk) documented as of this encounter Visit Diagnoses Not on filedocumented in this encounter
--- OUTSIDE RECORDS SUMMARY | 2022-06-22 11:53 | XMS_ITS | Encounter Summary ---
:1975 Author Organization [facility] Address [address] [place] [address] Care Team Providers Name Role Phone Unavailable Primary Care Provider Unavailable Encounter Details Date Type Department Care Team Description 06/26/2002 Hospital [facility] Ruthie Blanchard, RShayNShay [address] [place] [address] (Wo rk) Social History Tobacco Use Types Packs/Day Years Used Date Smoking Tobacco: Never Assessed Sex Assigned at Date Recorded Not on file documented as of this encounter Plan of Treatment Upcoming Encounters Date Type Specialty Care Team Description 08/18/2022 Comprehensive Visit Ophthalmology Elvin Villalba M.D. [address] [place], [place] [phone] (Wo rk) documented as of this encounter Visit Diagnoses Not on filedocumented in this encounter
--- OUTSIDE RECORDS SUMMARY | 2022-06-22 11:53 | XMS_ITS | Encounter Summary ---
:1975 Author Organization [facility] Address [address] [place] [address] Care Team Providers Name Role Phone Unavailable Primary Care Provider Unavailable Encounter Details Date Type Department Care Team Description 04/26/2002 Hospital [facility]aku Christie M.[facility]. [address] [place], [place] [address] (Wo rk) Social History Tobacco Use Types Packs/Day Years Used Date Smoking Tobacco: Never Assessed Sex Assigned at Date Recorded Not on file documented as of this encounter Plan of Treatment Upcoming Encounters Date Type Specialty Care Team Description 08/18/2022 Comprehensive Visit Ophthalmology Elvin Villalba M.D. [address] [place], [place] [phone] (Wo rk) documented as of this encounter Visit Diagnoses Not on filedocumented in this encounter
--- OUTSIDE RECORDS SUMMARY | 2022-06-22 11:53 | XMS_ITS | Encounter Summary ---
:1975 Author Organization [facility] Address [address] [place] [address] Care Team Providers Name Role Phone Unavailable Primary Care Provider Unavailable Encounter Details Date Type Department Care Team Description 09/13/2002 Hospital [facility] Kwaku Christie M.[facility]. [address] [place], [place] [address] (Wo rk) Social History Tobacco Use Types Packs/Day Years Used Date Smoking Tobacco: Never Assessed Sex Assigned at Date Recorded Not on file documented as of this encounter Plan of Treatment Upcoming Encounters Date Type Specialty Care Team Description 08/18/2022 Comprehensive Visit Ophthalmology Elvin Villalba M.D. [address] [place], [place] [phone] (Wo rk) documented as of this encounter Visit Diagnoses Not on filedocumented in this encounter
--- OUTSIDE RECORDS SUMMARY | 2022-06-22 11:53 | XMS_ITS | Encounter Summary ---
:1975 Author Organization [facility] Address [address] [place] [address] Care Team Providers Name Role Phone Unavailable Primary Care Provider Unavailable Encounter Details Date Type Department Care Team Description 09/06/2002 Hospital Encounter [facility] Kwaku Christie M.D. [address] [place], [place] [address] (Wo rk) Social History Tobacco Use Types Packs/Day Years Used Date Smoking Tobacco: Never Assessed Sex Assigned at Date Recorded Not on file documented as of this encounter Plan of Treatment Upcoming Encounters Date Type Specialty Care Team Description 08/18/2022 Comprehensive Visit Ophthalmology Elvin Villalba M.D. [address] [place], [place] [phone] (Wo rk) documented as of this encounter Visit Diagnoses Not on filedocumented in this encounter
--- OUTSIDE RECORDS SUMMARY | 2022-06-22 11:53 | XMS_ITS | Encounter Summary ---
:1975 Author Organization [facility] Address [address] [place] [address] Care Team Providers Name Role Phone Unavailable Primary Care Provider Unavailable Encounter Details Date Type Department Care Team Description 07/31/2002 Hospital [facility] M.[facility]. [address] [place], [place] [address] (Wo rk) Social History Tobacco Use Types Packs/Day Years Used Date Smoking Tobacco: Never Assessed Sex Assigned at Date Recorded Not on file documented as of this encounter Plan of Treatment Upcoming Encounters Date Type Specialty Care Team Description 08/18/2022 Comprehensive Visit Ophthalmology Elvin Villalba M.D. [address] [place], [place] [phone] (Wo rk) documented as of this encounter Visit Diagnoses Not on filedocumented in this encounter
--- OUTSIDE RECORDS SUMMARY | 2022-06-22 11:53 | XMS_ITS | Encounter Summary ---
:1975 Author Organization [facility] Address [address] [place] [address] Care Team Providers Name Role Phone Unavailable Primary Care Provider Unavailable Encounter Details Date Type Department Care Team Description 09/27/2002 Hospital [facility] [address] [place], [place] [address] (Wo rk) Social History Tobacco Use Types Packs/Day Years Used Date Smoking Tobacco: Never Assessed Sex Assigned at Date Recorded Not on file documented as of this encounter Plan of Treatment Upcoming Encounters Date Type Specialty Care Team Description 08/18/2022 Comprehensive Visit Ophthalmology Elvin Villalba M.D. [address] [place], [place] [phone] (Wo rk) documented as of this encounter Visit Diagnoses Not on filedocumented in this encounter
--- OUTSIDE RECORDS SUMMARY | 2022-06-22 11:53 | XMS_ITS | Encounter Summary ---
:1975 Author Organization [facility] Address [address] [place] [address] Care Team Providers Name Role Phone Unavailable Primary Care Provider Unavailable Encounter Details Date Type Department Care Team Description 08/14/2002 Hospital [facility]aku Christie M.[facility]. [address] [place], [place] [address] (Wo rk) Social History Tobacco Use Types Packs/Day Years Used Date Smoking Tobacco: Never Assessed Sex Assigned at Date Recorded Not on file documented as of this encounter Plan of Treatment Upcoming Encounters Date Type Specialty Care Team Description 08/18/2022 Comprehensive Visit Ophthalmology Elvin Villalba M.D. [address] [place], [place] [phone] (Wo rk) documented as of this encounter Visit Diagnoses Not on filedocumented in this encounter
--- OUTSIDE RECORDS SUMMARY | 2022-06-22 11:53 | XMS_ITS | Encounter Summary ---
:1975 Author Organization [facility] Address [address] [place] [address] Care Team Providers Name Role Phone Unavailable Primary Care Provider Unavailable Encounter Details Date Type Department Care Team Description 09/20/2002 Hospital [facility] Kwaku Christie M.[facility]. [address] [place], [place] [address] (Wo rk) Social History Tobacco Use Types Packs/Day Years Used Date Smoking Tobacco: Never Assessed Sex Assigned at Date Recorded Not on file documented as of this encounter Plan of Treatment Upcoming Encounters Date Type Specialty Care Team Description 08/18/2022 Comprehensive Visit Ophthalmology Elvin Villalba M.D. [address] [place], [place] [phone] (Wo rk) documented as of this encounter Visit Diagnoses Not on filedocumented in this encounter
--- OUTSIDE RECORDS SUMMARY | 2022-06-22 11:53 | XMS_ITS | Encounter Summary ---
:1975 Author Organization [facility] Address [address] [place] [address] Care Team Providers Name Role Phone Unavailable Primary Care Provider Unavailable Encounter Details Date Type Department Care Team Description 10/18/2002 Hospital [facility] Kw[facility] Christie M.[facility]. [address] [place], [place] [address] (Wo rk) Social History Tobacco Use Types Packs/Day Years Used Date Smoking Tobacco: Never Assessed Sex Assigned at Date Recorded Not on file documented as of this encounter Plan of Treatment Upcoming Encounters Date Type Specialty Care Team Description 08/18/2022 Comprehensive Visit Ophthalmology Elivn Villalba M.D. [address] [place], [place] [phone] (Wo rk) documented as of this encounter Visit Diagnoses Not on filedocumented in this encounter
--- OUTSIDE RECORDS SUMMARY | 2022-06-22 11:53 | XMS_ITS | Encounter Summary ---
:1975 Author Organization [facility] Address [address] [place] [address] Care Team Providers Name Role Phone Unavailable Primary Care Provider Unavailable Encounter Details Date Type Department Care Team Description 08/22/[address] [facility] Provider, Jax munroe Social History Tobacco Use Types Packs/Day Years Used Date Smoking Tobacco: Never Assessed Sex Assigned at Date Recorded Not on file documented as of this encounter Plan of Treatment Upcoming Encounters Date Type Specialty Care Team Description 08/18/2022 Comprehensive Visit Ophthalmology Elvin Villalba M.D. [address] [place], [place] [phone] (Wo rk) documented as of this encounter Visit Diagnoses Not on filedocumented in this encounter
--- OUTSIDE RECORDS SUMMARY | 2022-06-22 11:53 | XMS_ITS | Encounter Summary ---
:1975 Author Organization [facility] Address [address] [place] [address] Care Team Providers Name Role Phone Unavailable Primary Care Provider Unavailable Encounter Details Date Type Department Care Team Description 01/07/2004 Hospital Encounter HX [facility] OBGYN Provider, Histor ical Social History Tobacco Use Types Packs/Day Years Used Date Smoking Tobacco: Never Assessed Sex Assigned at Date Recorded Not on file documented as of this encounter Plan of Treatment Upcoming Encounters Date Type Specialty Care Team Description 08/18/2022 Comprehensive Visit Ophthalmology Elvin Villalba M.D. [address] [place], [place] [phone] (Wo rk) documented as of this encounter Visit Diagnoses Not on filedocumented in this encounter
--- OUTSIDE RECORDS SUMMARY | 2022-06-22 11:53 | XMS_ITS | Encounter Summary ---
:1975 Author Organization [facility] Address [address] [place] [address] Care Team Providers Name Role Phone Unavailable Primary Care Provider Unavailable Encounter Details Date Type Department Care Team Description 05/24/2002 Hospital En[facility] Kwaku Christie M.D. [address] [place], [place] [address] (Wo rk) Social History Tobacco Use Types Packs/Day Years Used Date Smoking Tobacco: Never Assessed Sex Assigned at Date Recorded Not on file documented as of this encounter Plan of Treatment Upcoming Encounters Date Type Specialty Care Team Description 08/18/2022 Comprehensive Visit Ophthalmology Elvin Villalba M.D. [address] [place], [place] [phone] (Wo rk) documented as of this encounter Visit Diagnoses Not on filedocumented in this encounter
--- OUTSIDE RECORDS SUMMARY | 2022-06-22 11:53 | XMS_ITS | Encounter Summary ---
:1975 Author Organization [facility] Address [address] [place] [address] Care Team Providers Name Role Phone Unavailable Primary Care Provider Unavailable Encounter Details Date Type Department Care Team Description 09/04/2002 Hospital Encounter [facility] Provider, Jax munroe Social History Tobacco Use Types Packs/Day Years Used Date Smoking Tobacco: Never Assessed Sex Assigned at Date Recorded Not on file documented as of this encounter Plan of Treatment Upcoming Encounters Date Type Specialty Care Team Description 08/18/2022 Comprehensive Visit Ophthalmology Elvin Villalba M.D. [address] [place], [place] [phone] (Wo rk) documented as of this encounter Visit Diagnoses Not on filedocumented in this encounter
--- OUTSIDE RECORDS SUMMARY | 2022-06-22 11:53 | XMS_ITS | Encounter Summary ---
:1975 Author Organization [facility] Address [address] [place] [address] Care Team Providers Name Role Phone Unavailable Primary Care Provider Unavailable Encounter Details Date Type Department Care Team Description 12/20/2002 Hospital [facility] Kwaku Christie M.[facility]. [address] [place], [place] [address] (Wo rk) Social History Tobacco Use Types Packs/Day Years Used Date Smoking Tobacco: Never Assessed Sex Assigned at Date Recorded Not on file documented as of this encounter Plan of Treatment Upcoming Encounters Date Type Specialty Care Team Description 08/18/2022 Comprehensive Visit Ophthalmology Elvin Villalba M.D. [address] [place], [place] [phone] (Wo rk) documented as of this encounter Visit Diagnoses Not on filedocumented in this encounter
--- OUTSIDE RECORDS SUMMARY | 2022-06-22 11:53 | XMS_ITS | Encounter Summary ---
:1975 Author Organization [facility] Address [address] [place] [address] Care Team Providers Name Role Phone Unavailable Primary Care Provider Unavailable Encounter Details Date Type Department Care Team Description 01/03/2004 Hospital Encounter [facility] ED Ruthie Blanchard, RShayNShay [address] [address] (Wo rk) Social History Tobacco Use Types Packs/Day Years Used Date Smoking Tobacco: Never Assessed Sex Assigned at Date Recorded Not on file documented as of this encounter Plan of Treatment Upcoming Encounters Date Type Specialty Care Team Description 08/18/2022 Comprehensive Visit Ophthalmology Elvin Villalba M.D. [address] [place], [place] [phone] (Wo rk) documented as of this encounter Visit Diagnoses Not on filedocumented in this encounter
--- OUTSIDE RECORDS SUMMARY | 2022-06-22 11:53 | XMS_ITS | Encounter Summary ---
:1975 Author Organization [facility] Address [address] [place] [address] Care Team Providers Name Role Phone Unavailable Primary Care Provider Unavailable Encounter Details Date Type Department Care Team Description 03/29/2002 Hospital [facility] Kwaku Christie M.D. [address] [place], [place] [address] (Wo rk) Social History Tobacco Use Types Packs/Day Years Used Date Smoking Tobacco: Never Assessed Sex Assigned at Date Recorded Not on file documented as of this encounter Plan of Treatment Upcoming Encounters Date Type Specialty Care Team Description 08/18/2022 Comprehensive Visit Ophthalmology Elvin Villalba M.D. [address] [place], [place] [phone] (Wo rk) documented as of this encounter Visit Diagnoses Not on filedocumented in this encounter
--- OUTSIDE RECORDS SUMMARY | 2022-06-22 11:53 | XMS_ITS | Encounter Summary ---
:1975 Author Organization [facility] Address [address] [place] [address] Care Team Providers Name Role Phone Unavailable Primary Care Provider Unavailable Encounter Details Date Type Department Care Team Description 09/07/2002 Hospital Encounter [facility] ED Provider, Jax munroe Social History Tobacco Use Types Packs/Day Years Used Date Smoking Tobacco: Never Assessed Sex Assigned at Date Recorded Not on file documented as of this encounter Plan of Treatment Upcoming Encounters Date Type Specialty Care Team Description 08/18/2022 Comprehensive Visit Ophthalmology Elvin Villalba M.D. [address] [place], [place] [phone] (Wo rk) documented as of this encounter Visit Diagnoses Not on filedocumented in this encounter
--- OUTSIDE RECORDS SUMMARY | 2022-06-22 11:53 | XMS_ITS | Encounter Summary ---
:1975 Author Organization [facility] Address [address] [place] [address] Care Team Providers Name Role Phone Unavailable Primary Care Provider Unavailable Encounter Details Date Type Department Care Team Description 11/02/2002 Hospital Encounter HX [facility] Stephan Wallace M.D. [address] [place], [place] [address] (Wo rk) Social History Tobacco Use Types Packs/Day Years Used Date Smoking Tobacco: Never Assessed Sex Assigned at Date Recorded Not on file documented as of this encounter Plan of Treatment Upcoming Encounters Date Type Specialty Care Team Description 08/18/2022 Comprehensive Visit Ophthalmology Elvin Villalba M.D. [address] [place], [place] [phone] (Wo rk) documented as of this encounter Visit Diagnoses Not on filedocumented in this encounter
--- OUTSIDE RECORDS SUMMARY | 2022-06-22 11:53 | XMS_ITS | Encounter Summary ---
:1975 Author Organization [facility] Address [address] [place] [address] Care Team Providers Name Role Phone Unavailable Primary Care Provider Unavailable Encounter Details Date Type Department Care Team Description 06/26/2002 Hospital [facility] Christie M.[facility]. [address] [place], [place] [address] (Wo rk) Social History Tobacco Use Types Packs/Day Years Used Date Smoking Tobacco: Never Assessed Sex Assigned at Date Recorded Not on file documented as of this encounter Plan of Treatment Upcoming Encounters Date Type Specialty Care Team Description 08/18/2022 Comprehensive Visit Ophthalmology Elvin Villalba M.D. [address] [place], [place] [phone] (Wo rk) documented as of this encounter Visit Diagnoses Not on filedocumented in this encounter
--- OUTSIDE RECORDS SUMMARY | 2022-06-22 11:53 | XMS_ITS | Encounter Summary ---
:1975 Author Organization [facility] Address [address] [place] [address] Care Team Providers Name Role Phone Unavailable Primary Care Provider Unavailable Encounter Details Date Type Department Care Team Description 05/10/2002 Hospital Encounter HX [facility] Stephan Wallace M.D. [address] [place], [place] [address] (Wo rk) Social History Tobacco Use Types Packs/Day Years Used Date Smoking Tobacco: Never Assessed Sex Assigned at Date Recorded Not on file documented as of this encounter Plan of Treatment Upcoming Encounters Date Type Specialty Care Team Description 08/18/2022 Comprehensive Visit Ophthalmology Elvin Villalba M.D. [address] [place], [place] [phone] (Wo rk) documented as of this encounter Visit Diagnoses Not on filedocumented in this encounter
--- OUTSIDE RECORDS SUMMARY | 2022-06-22 11:53 | XMS_ITS | Encounter Summary ---
:1975 Author Organization [facility] Address [address] [place] [address] Care Team Providers Name Role Phone Unavailable Primary Care Provider Unavailable Encounter Details Date Type Department Care Team Description 08/24/2002 Hospital Encounter [facility] ED Provider, Jax munroe Social History Tobacco Use Types Packs/Day Years Used Date Smoking Tobacco: Never Assessed Sex Assigned at Date Recorded Not on file documented as of this encounter Plan of Treatment Upcoming Encounters Date Type Specialty Care Team Description 08/18/2022 Comprehensive Visit Ophthalmology Elvin Villalba M.D. [address] [place], [place] [phone] (Wo rk) documented as of this encounter Visit Diagnoses Not on filedocumented in this encounter
--- OUTSIDE RECORDS SUMMARY | 2022-06-22 11:53 | XMS_ITS | Encounter Summary ---
:1975 Author Organization [facility] Address [address] [place] [address] Care Team Providers Name Role Phone Unavailable Primary Care Provider Unavailable Encounter Details Date Type Department Care Team Description 11/09/2002 Hospital En[facility] Kwaku Christie M.D. [address] [place], [place] [address] (Wo rk) Social History Tobacco Use Types Packs/Day Years Used Date Smoking Tobacco: Never Assessed Sex Assigned at Date Recorded Not on file documented as of this encounter Plan of Treatment Upcoming Encounters Date Type Specialty Care Team Description 08/18/2022 Comprehensive Visit Ophthalmology Elvin Villalba M.D. [address] [place], [place] [phone] (Wo rk) documented as of this encounter Visit Diagnoses Not on filedocumented in this encounter
--- OUTSIDE RECORDS SUMMARY | 2022-06-22 11:53 | XMS_ITS | Encounter Summary ---
:1975 Author Organization [facility] Address [address] [place] [address] Care Team Providers Name Role Phone Unavailable Primary Care Provider Unavailable Encounter Details Date Type Department Care Team Description 10/05/2002 Hospital Encounter [facility] Kwaku Christie M.D. [address] [place], [place] [address] (Wo rk) Social History Tobacco Use Types Packs/Day Years Used Date Smoking Tobacco: Never Assessed Sex Assigned at Date Recorded Not on file documented as of this encounter Plan of Treatment Upcoming Encounters Date Type Specialty Care Team Description 08/18/2022 Comprehensive Visit Ophthalmology Elvin Villalba M.D. [address] [place], [place] [phone] (Wo rk) documented as of this encounter Visit Diagnoses Not on filedocumented in this encounter
--- OUTSIDE RECORDS SUMMARY | 2022-06-22 11:53 | XMS_ITS | Encounter Summary ---
:[address] [facility] Address [address] [place] [address] Care Team Providers Name Role Phone Unavailable Primary Care Provider Unavailable Encounter Details Date Type Department Care Team Description 08/31/2002 Hospital [facility] Kwaku Christie M.D. [address] [place], [place] [address] (Wo rk) Social History Tobacco Use Types Packs/Day Years Used Date Smoking Tobacco: Never Assessed Sex Assigned at Date Recorded Not on file documented as of this encounter Plan of Treatment Upcoming Encounters Date Type Specialty Care Team Description 08/18/2022 Comprehensive Visit Ophthalmology Elvin Villalba M.D. [address] [place], [place] [phone] (Wo rk) documented as of this encounter Visit Diagnoses Not on filedocumented in this encounter
--- OUTSIDE RECORDS SUMMARY | 2022-06-22 11:53 | XMS_ITS | Encounter Summary ---
:1975 Author Organization [facility] Address [address] [place] [address] Care Team Providers Name Role Phone Unavailable Primary Care Provider Unavailable Encounter Details Date Type Department Care Team Description 08/28/2002 Hospital Encounter [facility] Provider, Jax munroe Social History Tobacco Use Types Packs/Day Years Used Date Smoking Tobacco: Never Assessed Sex Assigned at Date Recorded Not on file documented as of this encounter Plan of Treatment Upcoming Encounters Date Type Specialty Care Team Description 08/18/2022 Comprehensive Visit Ophthalmology Elvin Villalba M.D. [address] [place], [place] [phone] (Wo rk) documented as of this encounter Visit Diagnoses Not on filedocumented in this encounter
--- OUTSIDE RECORDS SUMMARY | 2022-06-22 11:53 | XMS_ITS | Encounter Summary ---
:1975 Author Organization [facility] Address [address] [place] [address] Care Team Providers Name Role Phone Unavailable Primary Care Provider Unavailable Encounter Details Date Type Department Care Team Description 03/13/2002 Hospital [facility] Kwaku Christie M.D. [address] [place], [place] [address] (Wo rk) Social History Tobacco Use Types Packs/Day Years Used Date Smoking Tobacco: Never Assessed Sex Assigned at Date Recorded Not on file documented as of this encounter Plan of Treatment Upcoming Encounters Date Type Specialty Care Team Description 08/18/2022 Comprehensive Visit Ophthalmology Elvin Villalba M.D. [address] [place], [place] [phone] (Wo rk) documented as of this encounter Visit Diagnoses Not on filedocumented in this encounter
--- OUTSIDE RECORDS SUMMARY | 2022-06-22 11:53 | XMS_ITS | Encounter Summary ---
:1975 Author Organization [facility] Address [address] [place] [address] Care Team Providers Name Role Phone Unavailable Primary Care Provider Unavailable Encounter Details Date Type Department Care Team Description 10/04/2002 Hospital [facility] Christie M.[facility]. [address] [place], [place] [address] (Wo rk) Social History Tobacco Use Types Packs/Day Years Used Date Smoking Tobacco: Never Assessed Sex Assigned at Date Recorded Not on file documented as of this encounter Plan of Treatment Upcoming Encounters Date Type Specialty Care Team Description 08/18/2022 Comprehensive Visit Ophthalmology Elvin Villalba M.D. [address] [place], [place] [phone] (Wo rk) documented as of this encounter Visit Diagnoses Not on filedocumented in this encounter
--- OUTSIDE RECORDS SUMMARY | 2022-06-22 11:53 | XMS_ITS | Encounter Summary ---
:1975 Author Organization [facility] Address [address] [place] [address] Care Team Providers Name Role Phone Unavailable Primary Care Provider Unavailable Encounter Details Date Type Department Care Team Description 10/05/2002 Hospital Encounter HX [facility] Stephan Wallace M.D. [address] [place], [place] [address] (Wo rk) Social History Tobacco Use Types Packs/Day Years Used Date Smoking Tobacco: Never Assessed Sex Assigned at Date Recorded Not on file documented as of this encounter Plan of Treatment Upcoming Encounters Date Type Specialty Care Team Description 08/18/2022 Comprehensive Visit Ophthalmology Elvin Villalba M.D. [address] [place], [place] [phone] (Wo rk) documented as of this encounter Visit Diagnoses Not on filedocumented in this encounter
--- OUTSIDE RECORDS SUMMARY | 2022-06-22 11:53 | XMS_ITS | Encounter Summary ---
:1975 Author Organization [facility] Address [address] [place] [address] Care Team Providers Name Role Phone Unavailable Primary Care Provider Unavailable Encounter Details Date Type Department Care Team Description 12/05/2003 Hospital Encounter HX [facility] Francois M.D. [address] [place] [address] (Wo rk) Social History Tobacco Use Types Packs/Day Years Used Date Smoking Tobacco: Never Assessed Sex Assigned at Date Recorded Not on file documented as of this encounter Plan of Treatment Upcoming Encounters Date Type Specialty Care Team Description 08/18/2022 Comprehensive Visit Ophthalmology Elvin Villalba M.D. [address] [place], [place] [phone] (Wo rk) documented as of this encounter Visit Diagnoses Not on filedocumented in this encounter
--- OUTSIDE RECORDS SUMMARY | 2022-06-22 11:54 | XMS_ITS | Encounter Summary ---
:1975 Author Organization [facility] Address [address] [place] [address] Care Team Providers Name Role Phone Unavailable Primary Care Provider Unavailable Encounter Details Date Type Department Care Team Description 05/11/2001 Hospital Encounter [facility]X [facility] Gabe Jasso M.D. [address] [phone] (Wo rk) Social History Tobacco Use Types Packs/Day Years Used Date Smoking Tobacco: Never Assessed Sex Assigned at Date Recorded Not on file documented as of this encounter Plan of Treatment Upcoming Encounters Date Type Specialty Care Team Description 08/18/2022 Comprehensive Visit Ophthalmology Elvin Villalba M.D. [address] [place], [place] [phone] (Wo rk) documented as of this encounter Visit Diagnoses Not on filedocumented in this encounter
--- OUTSIDE RECORDS SUMMARY | 2022-06-22 11:54 | XMS_ITS | Encounter Summary ---
:1975 Author Organization [facility] Address [address] [place] [address] Care Team Providers Name Role Phone Unavailable Primary Care Provider Unavailable Encounter Details Date Type Department Care Team Description 06/29/2001 Hospital Encounter HX NO MAPPING Emma Marques Au. D. Social History Tobacco Use Types Packs/Day Years Used Date Smoking Tobacco: Never Assessed Sex Assigned at Date Recorded Not on file documented as of this encounter Plan of Treatment Upcoming Encounters Date Type Specialty Care Team Description 08/18/2022 Comprehensive Visit Ophthalmology Elvin Villalba M.D. [address] [place], [place] [phone] (Wo rk) documented as of this encounter Visit Diagnoses Not on filedocumented in this encounter
--- OUTSIDE RECORDS SUMMARY | 2022-06-22 11:54 | XMS_ITS | Encounter Summary ---
:1975 Author Organization [facility] Address [address] [place] [address] Care Team Providers Name Role Phone Unavailable Primary Care Provider Unavailable Encounter Details Date Type Department Care Team Description 05/11/2001 Hospital Encounter HX NO MAPPING Emma Marques Au. D. Social History Tobacco Use Types Packs/Day Years Used Date Smoking Tobacco: Never Assessed Sex Assigned at Date Recorded Not on file documented as of this encounter Plan of Treatment Upcoming Encounters Date Type Specialty Care Team Description 08/18/2022 Comprehensive Visit Ophthalmology Elvin Villalba M.D. [address] [place], [place] [phone] (Wo rk) documented as of this encounter Visit Diagnoses Not on filedocumented in this encounter
--- OUTSIDE RECORDS SUMMARY | 2022-06-22 11:54 | XMS_ITS | Encounter Summary ---
:1975 Author Organization [facility] Address [address] [place] [address] Care Team Providers Name Role Phone Unavailable Primary Care Provider Unavailable Encounter Details Date Type Department Care Team Description 02/07/2001 Hospital Encounter [facility] Cirilo Johnson M.D. [address] [place] [address] (Wo rk) Social History Tobacco Use Types Packs/Day Years Used Date Smoking Tobacco: Never Assessed Sex Assigned at Date Recorded Not on file documented as of this encounter Plan of Treatment Upcoming Encounters Date Type Specialty Care Team Description 08/18/2022 Comprehensive Visit Ophthalmology Elvin Villalba M.D. [address] [place], [place] [phone] (Wo rk) documented as of this encounter Visit Diagnoses Not on filedocumented in this encounter
--- OUTSIDE RECORDS SUMMARY | 2022-06-22 11:54 | XMS_ITS | Encounter Summary ---
:1975 Author Organization [facility] Address [address] [place] [address] Care Team Providers Name Role Phone Unavailable Primary Care Provider Unavailable Encounter Details Date Type Department Care Team Description 04/07/2001 Hospital Encounter HX NO MAPPING Emma Marques Au. D. Social History Tobacco Use Types Packs/Day Years Used Date Smoking Tobacco: Never Assessed Sex Assigned at Date Recorded Not on file documented as of this encounter Plan of Treatment Upcoming Encounters Date Type Specialty Care Team Description 08/18/2022 Comprehensive Visit Ophthalmology Elvin Villalba M.D. [address] [place], [place] [phone] (Wo rk) documented as of this encounter Visit Diagnoses Not on filedocumented in this encounter
--- OUTSIDE RECORDS SUMMARY | 2022-06-22 11:54 | XMS_ITS | Encounter Summary ---
:[address] [facility] Address [address] [place] [address] Care Team Providers Name Role Phone Unavailable Primary Care Provider Unavailable Encounter Details Date Type Department Care Team Description 03/02/2002 Hospital Encounter [facility] Provider, Jax munroe Social History Tobacco Use Types Packs/Day Years Used Date Smoking Tobacco: Never Assessed Sex Assigned at Date Recorded Not on file documented as of this encounter Plan of Treatment Upcoming Encounters Date Type Specialty Care Team Description 08/18/2022 Comprehensive Visit Ophthalmology Elvin Villalba M.D. [address] [place], [place] [phone] (Wo rk) documented as of this encounter Visit Diagnoses Not on filedocumented in this encounter
--- OUTSIDE RECORDS SUMMARY | 2022-06-22 11:54 | XMS_ITS | Encounter Summary ---
:1975 Author Organization [facility] Address [address] [place] [address] Care Team Providers Name Role Phone Unavailable Primary Care Provider Unavailable Encounter Details Date Type Department Care Team Description 06/29/2001 Hospital Encounter [facility]X [facility] ENT Gabe Jasso M.D. [address] [phone] (Wo rk) Social History Tobacco Use Types Packs/Day Years Used Date Smoking Tobacco: Never Assessed Sex Assigned at Date Recorded Not on file documented as of this encounter Plan of Treatment Upcoming Encounters Date Type Specialty Care Team Description 08/18/2022 Comprehensive Visit Ophthalmology Elvin Villalba M.D. [address] [place], [place] [phone] (Wo rk) documented as of this encounter Visit Diagnoses Not on filedocumented in this encounter
--- OUTSIDE RECORDS SUMMARY | 2022-06-22 11:54 | XMS_ITS | Encounter Summary ---
:1975 Author Organization [facility] Address [address] [place] [address] Care Team Providers Name Role Phone Unavailable Primary Care Provider Unavailable Encounter Details Date Type Department Care Team Description 02/13/2002 Hospital Encounter [facility]X [facility] Gregorio Maddox M.D. [address] [address] (Wo rk) Social History Tobacco Use Types Packs/Day Years Used Date Smoking Tobacco: Never Assessed Sex Assigned at Date Recorded Not on file documented as of this encounter Plan of Treatment Upcoming Encounters Date Type Specialty Care Team Description 08/18/2022 Comprehensive Visit Ophthalmology Elvin Villalba M.D. [address] [place], [place] [phone] (Wo rk) documented as of this encounter Visit Diagnoses Not on filedocumented in this encounter
--- OUTSIDE RECORDS SUMMARY | 2022-06-22 11:54 | XMS_ITS | Encounter Summary ---
:1975 Author Organization [facility] Address [address] [place] [address] Care Team Providers Name Role Phone Unavailable Primary Care Provider Unavailable Encounter Details Date Type Department Care Team Description 03/03/2002 Hospital Encounter [facility] ED Provider, Jax munroe Social History Tobacco Use Types Packs/Day Years Used Date Smoking Tobacco: Never Assessed Sex Assigned at Date Recorded Not on file documented as of this encounter Plan of Treatment Upcoming Encounters Date Type Specialty Care Team Description 08/18/2022 Comprehensive Visit Ophthalmology Elvin Villalba M.D. [address] [place], [place] [phone] (Wo rk) documented as of this encounter Visit Diagnoses Not on filedocumented in this encounter
--- OUTSIDE RECORDS SUMMARY | 2022-06-22 11:54 | XMS_ITS | Encounter Summary ---
:1975 Author Organization [facility] Address [address] [place] [address] Care Team Providers Name Role Phone Unavailable Primary Care Provider Unavailable Encounter Details Date Type Department Care Team Description 04/13/2001 Hospital Encounter [facility]X [facility] ENT Gabe Jasso M.D. [address] [phone] (Wo rk) Social History Tobacco Use Types Packs/Day Years Used Date Smoking Tobacco: Never Assessed Sex Assigned at Date Recorded Not on file documented as of this encounter Plan of Treatment Upcoming Encounters Date Type Specialty Care Team Description 08/18/2022 Comprehensive Visit Ophthalmology Elvin Villalba M.D. [address] [place], [place] [phone] (Wo rk) documented as of this encounter Visit Diagnoses Not on filedocumented in this encounter
--- OUTSIDE RECORDS SUMMARY | 2022-06-22 11:54 | XMS_ITS | Encounter Summary ---
:1975 Author Organization [facility] Address [address] [place] [address] Care Team Providers Name Role Phone Unavailable Primary Care Provider Unavailable Encounter Details Date Type Department Care Team Description 12/13/2001 Hospital Encounter [facility]X [facility] Gregorio Maddox M.D. [address], [place] [address] (Wo rk) Social History Tobacco Use Types Packs/Day Years Used Date Smoking Tobacco: Never Assessed Sex Assigned at Date Recorded Not on file documented as of this encounter Plan of Treatment Upcoming Encounters Date Type Specialty Care Team Description 08/18/2022 Comprehensive Visit Ophthalmology Elvin Villalba M.D. [address] [place], [place] [phone] (Wo rk) documented as of this encounter Visit Diagnoses Not on filedocumented in this encounter
--- OUTSIDE RECORDS SUMMARY | 2022-06-22 11:54 | XMS_ITS | Encounter Summary ---
:[address] [facility] Address [address] [place] [address] Care Team Providers Name Role Phone Unavailable Primary Care Provider Unavailable Encounter Details Date Type Department Care Team Description 02/27/2002 Hospital Encounter HX [facility] Gregorio Maddox M.D. [address], [place] [address] (Wo rk) Social History Tobacco Use Types Packs/Day Years Used Date Smoking Tobacco: Never Assessed Sex Assigned at Date Recorded Not on file documented as of this encounter Plan of Treatment Upcoming Encounters Date Type Specialty Care Team Description 08/18/2022 Comprehensive Visit Ophthalmology Elvin Villalba M.D. [address] [place], [place] [phone] (Wo rk) documented as of this encounter Visit Diagnoses Not on filedocumented in this encounter
--- OUTSIDE RECORDS SUMMARY | 2022-06-22 11:54 | XMS_ITS | Encounter Summary ---
:1975 Author Organization [facility] Address [address] [place] [address] Care Team Providers Name Role Phone Unavailable Primary Care Provider Unavailable Encounter Details Date Type Department Care Team Description 02/15/2001 Hospital Encounter HX [facility] Cirilo Johnson M.D. [address] [place] [address] (Wo rk) Social History Tobacco Use Types Packs/Day Years Used Date Smoking Tobacco: Never Assessed Sex Assigned at Date Recorded Not on file documented as of this encounter Plan of Treatment Upcoming Encounters Date Type Specialty Care Team Description 08/18/2022 Comprehensive Visit Ophthalmology Elvin Villalba M.D. [address] [place], [place] [phone] (Wo rk) documented as of this encounter Visit Diagnoses Not on filedocumented in this encounter
--- OUTSIDE RECORDS SUMMARY | 2022-06-22 11:54 | XMS_ITS | Encounter Summary ---
:1975 Author Organization [facility] Address [address] [place] [address] Care Team Providers Name Role Phone Unavailable Primary Care Provider Unavailable Encounter Details Date Type Department Care Team Description 02/08/2001 Hospital Encounter HX [facility]ILY[facility] Cirilo Johnson M.D. [address] [place] [address] (Wo rk) Social History Tobacco Use Types Packs/Day Years Used Date Smoking Tobacco: Never Assessed Sex Assigned at Date Recorded Not on file documented as of this encounter Plan of Treatment Upcoming Encounters Date Type Specialty Care Team Description 08/18/2022 Comprehensive Visit Ophthalmology Elvin Villalba M.D. [address] [place], [place] [phone] (Wo rk) documented as of this encounter Visit Diagnoses Not on filedocumented in this encounter
--- OUTSIDE RECORDS SUMMARY | 2022-06-22 11:54 | XMS_ITS | Encounter Summary ---
:1975 Author Organization [facility] Address [address] [place] [address] Care Team Providers Name Role Phone Unavailable Primary Care Provider Unavailable Encounter Details Date Type Department Care Team Description 03/03/2002 Hospital Encounter HX [facility] Ruthie Blanchard, RShayNShay [address], [place] [address] (Wo rk) Social History Tobacco Use Types Packs/Day Years Used Date Smoking Tobacco: Never Assessed Sex Assigned at Date Recorded Not on file documented as of this encounter Plan of Treatment Upcoming Encounters Date Type Specialty Care Team Description 08/18/2022 Comprehensive Visit Ophthalmology Elvin Villalba M.D. [address] [place], [place] [phone] (Wo rk) documented as of this encounter Visit Diagnoses Not on filedocumented in this encounter
== END 2022-06-22 11:41 | disposition home or self-care (01) ==
LOC: OP CLINIC 11:49
PROVIDERS: PCP Family Medicine; Visit Provider Surgery
DX: Z12.11 Encounter for screening for malignant neoplasm of colon (principal); K62.1 Rectal polyp; K63.89 Other specified diseases of intestine
CPT/HCPCS: 45380; 45385; 88305; 99153; J2250; J3010

== ENCOUNTER 2022-11-03 08:13 | Outpatient (CLI) | payer BC, SELFPAY ==
--- NOTE | 2022-11-03 08:15 | CRLHL7_ITS ---
For Patients: As a result of the Century Cures Act, medical imaging exams and procedure reports are released immediately into your electronic medical record. You may view this report before your referring provider. If you have questions, please contact your health care provider. BILATERAL SCREENING MAMMOGRAM WITH COMPUTER-AIDED DETECTION AND TOMOSYNTHESIS TECHNIQUE: CC and MLO views were obtained. These mammographic images have been obtained using full-field digital technique. These mammographic images were interpreted with the benefit of computer-aided detection. Breast Tomosynthesis was used in this interpretation. COMPARISON FILM: 05/15/21, 05/14/20, 01/10/19. FINDINGS: There are scattered areas of fibroglandular density IMPRESSION: There is no radiographic evidence for malignancy. ASSESSMENT: BI-RADS Category 1: Negative RECOMMENDATION: Routine screening mammogram in 1 year. A lay language report of this examination will be provided to the patient. Heath Vale M.D. Diagnostic Radiologist [email or web address] MARIA INES/prabha armando/Dictated by: Heath Vale MD @ 11/04/2022 11:29:00 AM (Electronically Signed)
== END 2022-11-03 08:14 | disposition home or self-care (01) ==
LOC: MAMMO 08:14
PROVIDERS: PCP Family Medicine; Visit Provider Family Medicine
DX: Z12.31 Encounter for screening mammogram for malignant neoplasm of breast (principal)
CPT/HCPCS: 77063; 77067

== ENCOUNTER 2023-12-08 08:12 | Outpatient (CLI) | payer BC, SELFPAY ==
--- NOTE | 2023-12-08 08:15 | CRLHL7_ITS ---
For Patients: As a result of the Cures Act, medical imaging exams and procedure reports are released immediately into your electronic medical record. You may view this report before your referring provider. If you have questions, please contact your health care provider. BILATERAL SCREENING MAMMOGRAM WITH COMPUTER-AIDED DETECTION AND TOMOSYNTHESIS TECHNIQUE: CC and MLO views were obtained. These mammographic images have been obtained using full-field digital technique. These mammographic images were interpreted with the benefit of computer-aided detection. Breast Tomosynthesis was used in this interpretation. COMPARISON FILM: 11/03/22, 05/15/21, 05/14/20. FINDINGS: There are scattered areas of fibroglandular density IMPRESSION: There is no radiographic evidence for malignancy. ASSESSMENT: BI-RADS Category 1: Negative RECOMMENDATION: Routine screening mammogram in 1 year. A lay language report of this examination will be provided to the patient. Heath Vale M.D. Diagnostic Radiologist [email or web address] MARIA INES/prabha Transcribed: 4:49 p.mShay armando/Dictated by: Heath Vale MD @ 12/09/2023 10:44:00 AM (Electronically Signed)
--- OUTSIDE RECORDS SUMMARY | 2023-12-08 08:16 | XMS_ITS | Referral Summary ---
Author Name Unknown Organization [facility] Address [address] [place] [address] Care Team Providers Care Production Quality Analyst Name Role Phone Unavailable Primary Care Provider Unavailabl e Source Comments Patient records contain information from all sites at [facility]. For routine questions regarding patient records, call [phone] during business hours, M-F 8:00 AM - 5:00 PM Central Time. Record requests for emergency care only can be directed to [phone] at any time.[facility] Encounters Date Type Department Care Team Description 11/24/2023 Orders Only Department of Ophthalmology in [address] [address] Elvin Villalba M.D. 11/23/2023 Clinical Communication Department of Ophthalmology in [address] [phone] Elvin Villalba M.D. Order Request (Eye Drops) 11/22/2023 Clinical Communication Department of Ophthalmology in [address] [address] Elvin Villalba M.D. 11/22/2023 9:30 AM INVENTORY CONTROL PLANNER Office Visit Department of Ophthalmology in [address] [address] Elvin Villalba M.D. Dry Eye Syndrome Bilateral (Primary Dx); Keratitis Superficial Bilateral; Glaucoma Suspect Ocular Hypertension Bilateral 10/18/2023 9:30 AM INVENTORY CONTROL PLANNER Ancillary Procedure Department of Ophthalmology in [address] [address] Elvin Villalba M.D. Dry Eye Syndrome Bilateral (Primary Dx); Glaucoma Suspect Ocular Hypertension Bilateral; Keratitis Superficial Bilateral from Last 3 Months Allergies No known active allergies Medications Medication Sig Dispensed Refills Start Date End Date Status acetaminophen (TYLENOL) 325 mg tablet Take by mouth every 4 (four) hours as needed. 0 10/29/2014 Active carboxymethylce-gly cerin-polysorbate 80 (Refresh Optive Advanced) 0.5-1-0.5 % ophthalmic solution Administer 1 drop into both eyes 2 (two) times a day. 15 mL 11 11/22/2023 11/21/2024 Active white petrolatum-mineral oiL (Refresh P.M.) 57.3-42.5 % ointment Apply 0.25 inches to both eyes at bedtime. 15 g 11/22/2023 Active artificial tear,xeayw-dun-qzv, (GenTeal Tears Moderate) 0.1-0.3-0.2 % drops ophthalmic solution Administer 1 drop into both eyes 4 (four) times a day. 15 mL 11 11/24/2023 Active Active Problems No known active problems Immunizations Name Administration Dates Next Due Influenza (IM) Preservative Free 09/05/2008 Influenza Split 08/31/2002 Social History Tobacco Use Types Packs/Day Years Used Date Smoking Tobacco: Never Nutrition Answer Date Recorded Nutrition: EVOO Fat Source Unknown 01/01 Nutrition: Servings of Fruits/Vegetables per Day Not on file 01/01/2021 Dental Answer Date Recorded Dental: Regular Dentist Unknown 01/02/20 21 Sex and Gender Information Value Date Recorded Sex Assigned at Not on file Gender Identity Not on file Sexual Orientation Not on file Last Filed Vital Signs Vital Sign Reading Time Taken Comments Blood Pressure 100/50 09/28/2014 2:23 PM INVENTORY CONTROL PLANNER Pulse 80 09/28/2014 2:23 PM INVENTORY CONTROL PLANNER Temperature - - Respiratory Rate - - Oxygen Saturation - - Inhaled Oxygen Concentration - - Weight 51.1 kg (112 lb 10.5 oz) 09/28/2014 2:23 PM INVENTORY CONTROL PLANNER Height - - Body Mass Index - - Plan of Treatment Not on file Procedures Procedure Name Priority Date/Time Associated Diagnosis Comments OPTICAL COHERENCE TOMOGRAPHY (OCT) - OPTIC NERVE - OU - BOTH EYES Routine 10/18/2023 10:39 AM INVENTORY CONTROL PLANNER Glaucoma Suspect Ocular Hypertension Bilateral from Last 3 Months Results * Optical Coherence Tomography - Optic Nerve - OU - Both Eyes (10/18/2023 10:39 AM INVENTORY CONTROL PLANNER) Narrative OPHTHALMOLOGY IMAGING EXAM - 10/18/2023 10:39 AM INVENTORY CONTROL PLANNER OCT device used was Cirrus . Right Eye Reliability was good. Findings included normal observations, physiological/assymetrical cupping. Left Eye Reliability was borderline. Findings included normal observations, physiological/assymetrical cupping. Elvin Villalba M.D. OPHTH TOMOGRAPHY OPHTHALMOLOGY IMAGING EXAM from Last 3 Months
--- OUTSIDE RECORDS SUMMARY | 2023-12-08 08:16 | XMS_ITS | Encounter Summary ---
Author Name Unknown Organization [facility] Address [address] [place] [address] Care Team Providers Care Hospital Receptionist Name Role Phone Unavailable Primary Care Provider Unavailabl e Encounter Details Date Type Department Care Team (Late st Contact Info) Description 11/24/2023 Orders Only Department of Ophthalmology in [place], [place] [address] [address] Elvin Villalba M.D. [address] [address] Social History Tobacco Use Types Packs/Day Years [...] on file Sexual Orientation Not on file documented as of this encounter Plan of Treatment Not on file documented as of this encounter Visit Diagnoses Not on filedocumented in this encounter
--- OUTSIDE RECORDS SUMMARY | 2023-12-08 08:16 | XMS_ITS | Encounter Summary ---
Author Name Unknown Organization [facility] Address [address] [place] [address] Care Team Providers Care Assistant Manager/Embalmer Name Role Phone Unavailable Primary Care Provider Unavailabl e Reason for Referral * Outpatient (Routine) - Closed Specialty Diagnoses / Procedures Referred By Que art Referred To Contact Ophthalmology Elvin Villalba M.D. [address] [phone] [facility] Referral ID Status Reason Start Date Expiration Date Visits Re quested Visits Authorized [id number] Closed 10/18/2023 10/17/2026 1 1 RAL COUNSEL Reason for Visit * Reason Comments Glaucoma Encounter Details Date Type Department Care Team (Latest Contact Info) Description 10/18/2023 9:30 AM GENERAL COUNSEL Ancillary Procedure Department of Ophthalmology in [place], [place] [address] [phone] lEvin Villalba M.D. [address] [phone] Dry Eye Syndrome Bilateral (Primary Dx); Glaucoma Suspect Ocular Hypertension Bilateral; Keratitis Superficial Bilateral Social History Tobacco Use Types Packs/Day Years [...] documented as of this encounter Progress Notes * Elvin Villalba M.D. - 10/18/2023 9:30 AM CST Ivett Alexander was seen today for Glaucoma #1 Glaucoma Suspect Ocular Hypertension Bilateral #2 Dry Eye Syndrome Bilateral #3 Keratitis Superficial Bilateral Moderate to severe keratitis both eyes. Good intraocular pressure both eyes. Enlarged optic disc cupping without evidence of RNFL baseline scan. Thicker corneas via pachymetry. Plan: EES jonathan bedtime both eyes. Ocular lubricants twice daily. RTC one month. III/OCT/pachy RAL COUNSEL documented in this encounter Plan of Treatment Scheduled Referrals Name Type Priority Associated Diagnoses Order Schedule Ophthalmology office visit (clinic) Outpatient Referral Routine Expected: 11/18/2023 (Approximate), Expires: 01/16/2025 documented as of this encounter Procedures Procedure Name Priority Date/Time Associated Diagnosis Comments OPTICAL COHERENCE TOMOGRAPHY (OCT) - OPTIC NERVE - OU - BOTH EYES Routine 10/18/2023 10:39 AM GENERAL COUNSEL Glaucoma Suspect Ocular Hypertension Bilateral documented in this encounter Results * Optical Coherence Tomography - Optic Nerve - OU - Both Eyes (10/18/2023 10:39 AM GENERAL COUNSEL) Narrative OPHTHALMOLOGY IMAGING EXAM - 10/18/2023 10:39 AM GENERAL COUNSEL OCT device used was Cirrus . Right Eye Reliability was good. Findings included normal observations, physiological/assymetrical cupping. Left Eye Reliability was borderline. Findings included normal observations, physiological/assymetrical cupping. Elvin Villalba M.D. OPHTH TOMOGRAPHY OPHTHALMOLOGY IMAGING EXAM documented in this encounter Visit Diagnoses Diagnosis Dry Eye Syndrome Bilateral- Primary Glaucoma Suspect Ocular Hypertension Bilateral Keratitis Superficial Bilateral documented in this encounter
--- OUTSIDE RECORDS SUMMARY | 2023-12-08 08:16 | XMS_ITS ---
Author Name Unknown Organization [facility] Address [address] [place] [address] Care Team Providers Care Winderman Name Role Phone Unavailable Unavailable Unavailable Surgery Details Not on file Complications Check Surgery Details section. Procedure Estimated Blood Loss Check Surgery Details section. Procedure Findings Check Surgery Details section. Procedure Specimens Taken Check Surgery Details section.
--- OUTSIDE RECORDS SUMMARY | 2023-12-08 08:16 | XMS_ITS | Encounter Summary ---
Author Name Unknown Organization [facility] Address [address] [place] [address] Care Team Providers Care Reel Slitter Name Role Phone Unavailable Primary Care Provider Unavailabl e Reason for Visit * Reason Onset Date Comments Order Request 11/23/2023 Eye Drops Encounter Details Date Type Department Care Team (Latest Contact Info) Description 11/23/2023 Clinical Communication Department of Ophthalmology in [place], [place] [address] [phone] Elvin Villalba M.D. [address] [phone] Order Request (Eye Drops) Social History Tobacco Use Types Packs/Day Years [...]
--- OUTSIDE RECORDS SUMMARY | 2023-12-08 08:16 | XMS_ITS | Clinical Summary ---
Author Name Unknown Organization [facility] Address [address] [place] [address] Care Team Providers Care Marketing Finance Specialist Name Role Phone Unavailable Primary Care Provider Unavailabl e Source Comments Patient records contain information from all sites at [facility]. For routine questions regarding patient records, call [phone] during business hours, M-F 8:00 AM - 5:00 PM Central Time. Record requests for emergency care only can be directed to [phone] at any time.[facility] Allergies No known active allergies Medications Medication [...] to both eyes at bedtime. 15 g 11 11/22/2023 Active artificial tear,darpp-hpx-wef, (GenTeal Tears Moderate) 0.1-0.3-0.2 % drops ophthalmic solution Administer 1 drop into both eyes 4 (four) times a day. 15 mL 11 11/24/2023 Active Active Problems No known active problems Encounters Date Type Department Care Team Description 11/24/2023 Orders Only Department of Ophthalmology in [place], [place] [address] [place] [address] Elvin Villalba M.D. 11/23/2023 Clinical Communication Department of Ophthalmology in [address] [phone] Elvin Villalba M.D. Order Request (Eye Drops) 11/22/2023 9:30 AM SALES REPRESENTATIVE PUBLICATIONS Office Visit Department of Ophthalmology in [address] [address] Elvin Villalba M.D. Dry Eye Syndrome Bilateral (Primary Dx); Keratitis Superficial Bilateral; Glaucoma Suspect Ocular Hypertension Bilateral 11/22/2023 Clinical Communication Department of Ophthalmology in [address] [address] Elvin Villalba M.D. 10/18/2023 9:30 AM SALES REPRESENTATIVE PUBLICATIONS Ancillary Procedure Department of Ophthalmology in [address] [phone] Elvin Villalba M.D. Dry Eye Syndrome Bilateral (Primary Dx); Glaucoma Suspect Ocular Hypertension Bilateral; Keratitis Superficial Bilateral from Last 3 Months Immunizations Name Administration Dates Next Due Influenza [...] Comments Blood Pressure 100/50 09/28/2014 2:23 PM SALES REPRESENTATIVE PUBLICATIONS Pulse 80 09/28/2014 2:23 PM SALES REPRESENTATIVE PUBLICATIONS Temperature - - Respiratory Rate - - Oxygen Saturation - - Inhaled Oxygen Concentration - - Weight 51.1 kg (112 lb 10.5 oz) 09/28/2014 2:23 PM SALES REPRESENTATIVE PUBLICATIONS Height - - Body Mass Index - - Plan of Treatment Health Maintenance Due Date Last Done Comments CT Colonography 1975 Cologuard 1975 Colonoscopy 1975 Colorectal Cancer Screening 1975 FIT 1975 Fasting Glucose for Diabetes Screening 1975 HIV Screening 1975 Hepatitis B Vaccines (1 of 3 - 3-dose series) 1975 Hepatitis C Screening 1975 Lipid (Cholesterol) Screening 1975 Mammogram 1975 COVID-19 Vaccine (3 - season) 2023 03/27/2021, 02/27/2021 Influenza Vaccine (#1) 2023 8, 09/05/2008, 08/31/2002, Additional history exists Depression Screening (Annual PHQ-2) 11/01/2023 Cervical Cancer Screening 04/18/2024 04/18/2021 DTaP,Tdap,and Td Vaccines (2 - Td or Tdap) 06/03/2025 06/03/2015 Pneumococcal vaccine (0-64 years) Aged Out No longer eligible based on patient's age to complete this topic Procedures Procedure Name Priority Date/Time Associated Diagnosis Comments OPTICAL COHERENCE TOMOGRAPHY (OCT) - OPTIC NERVE - OU - BOTH EYES Routine 10/18/2023 10:39 AM SALES REPRESENTATIVE PUBLICATIONS Glaucoma Suspect Ocular Hypertension Bilateral from Last 3 Months Results * Optical Coherence Tomography - Optic Nerve - OU - Both Eyes (10/18/2023 10:39 AM SALES REPRESENTATIVE PUBLICATIONS) Narrative OPHTHALMOLOGY IMAGING EXAM - 10/18/2023 10:39 AM SALES REPRESENTATIVE PUBLICATIONS OCT device used was Cirrus . Right Eye Reliability was good. Findings included normal observations, physiological/assymetrical cupping. Left Eye Reliability was borderline. Findings included normal observations, physiological/assymetrical cupping. Elvin Villalba M.D. OPHTH TOMOGRAPHY OPHTHALMOLOGY IMAGING EXAM from Last 3 Months
--- OUTSIDE RECORDS SUMMARY | 2023-12-08 08:16 | XMS_ITS | Encounter Summary ---
Author Name Unknown Organization [facility] Address [address] [place] [address] Care Team Providers Care Full Service Supervisor Name Role Phone Unavailable Primary Care Provider Unavailabl e Reason for Referral * Outpatient (Routine) - Authorized Specialty Diagnoses / Procedures Referred By Que art Referred To Contact Procedures OPH General eye exam Elvin Villalba M.D. [address] [place] [phone] [facility] Referral ID Status Reason Start Date Expiration Date V isits Requested Visits Authorized [id number] Authorized 11/22/2023 11/21/2024 1 1 ESSING SPEC Reason for Visit * Reason Comments Follow-up * Outpatient (Routine) - Closed Specialty Diagnoses / Procedures Referred By Que art Referred To Contact Ophthalmology Elvin Villalba M.D. [address] [place] [phone] [facility] Referral ID Status Reason Start Date Expiration Date Visits Re quested Visits Authorized [id number] Closed 10/18/2023 10/17/2026 1 1 Encounter Details Date Type Department Care Team (Latest Contact Info) Description 11/22/2023 9:30 AM PROCESSING SPEC Office Visit Department of Ophthalmology in [place], [place] [address] [place] [phone] Elvin Villalba M.D. [address] [place] [phone] Dry Eye Syndrome Bilateral (Primary Dx); Keratitis Superficial Bilateral; Glaucoma Suspect Ocular Hypertension Bilateral Social History Tobacco Use Types Packs/Day [...] Progress Notes * Elvin Villalba M.D. - 11/22/2023 9:30 AM CST Ivett Alexander was seen today for Follow-up #1 Dry Eye Syndrome Bilateral #2 Keratitis Superficial Bilateral Improved significantly but still evident. Unable to source Refresh PM OTC. Plan: Continue ocular lubricants. Order Refresh PM. RTC as needed or in one year annual exam with OCT nerve. III ESSING SPEC documented in this encounter Plan of Treatment Scheduled Orders Name Type Priority Associated Diagnoses Orde r Schedule OPH General eye exam Procedures Routine Expe cted: 08/22/2024 (Approximate), Expires: 02/20/2025 Optical Coherence Tomography - Optic Nerve - OU - Both Eyes Ophthalmology Routine Glaucoma Suspect Ocular Hypertension Bilateral Expected: 11/22/2024 (Approximate), Expires: 02/20/2025 documented as of this encounter Visit Diagnoses Diagnosis Dry Eye Syndrome Bilateral- Primary Keratitis Superficial Bilateral Glaucoma Suspect Ocular Hypertension Bilateral documented in this encounter
--- OUTSIDE RECORDS SUMMARY | 2023-12-08 08:16 | XMS_ITS | Encounter Summary ---
Author Name Unknown Organization [facility] Address [address] [place] [address] Care Team Providers Care Grain And Yeast Plants Supervisor Name Role Phone Unavailable Primary Care Provider Unavailabl e Encounter Details Date Type Department Care Team (Latest Contact Info) Description 11/22/2023 Clinical Communication Department of Ophthalmology in [place], [place] [address] [phone] Elvin Villalba M.D. [address] [phone] Social History Tobacco Use Types [...]
--- OUTSIDE RECORDS SUMMARY | 2023-12-08 08:16 | XMS_ITS | Encounter Summary ---
Author Name Unknown Organization [facility] Address [address] [place] [address] Care Team Providers Care Drawing Kiln Supervisor Name Role Phone Unavailable Primary Care Provider Unavailabl e Reason for Visit * Reason Comments Eye Exam * Outpatient (Routine) - Closed Specialty Diagnoses / Procedures Referred By Que art Referred To Contact Procedures OPH General eye exam Elvin Villalba M.D. [address] [place] [phone] [facility] Region Referral ID Status Reason Start Date Expiration Date Visits Re quested Visits Authorized [id number] Closed 08/18/2022 08/18/2023 1 1 Encounter Details Date Type Department Care Team (Latest Contact Info) Description 08/23/2023 9:00 AM CDT Comprehensive Visit Department of Ophthalmology in [place] [address] [place] [phone] Elvin Villalba M.D. [address] [place] [phone] Myopia Bilateral (Primary Dx); Dry Eye Syndrome Bilateral; Keratitis Superficial Bilateral; Glaucoma Suspect Ocular Hypertension [...] Progress Notes * Elvin Villalba M.D. - 08/23/2023 9:00 AM CDT Ivett Alexander was seen today for Eye Exam #1 Myopia Bilateral #2 Dry Eye Syndrome Bilateral #3 Keratitis Superficial Bilateral #4 Glaucoma Suspect Ocular Hypertension Bilateral Myopia stable. Keratitis multifactorial to include overnight exposure. ??Increased optic cupping with possible progression left eye. No known glaucoma risk factors/familyhistory. Plan: Ocular lubricants twice daily with Refresh PM jonathan daily at bedtime. Recheck intraocular pressure two months with OCT nerve and pachymetry. Cex/ref documented in this encounter Plan of Treatment Not on file documented as of this encounter Results * Optical Coherence Tomography - Optic Nerve - OU - Both Eyes (10/18/2023 10:39 AM POST TENSIONING IRONWORKER HELPER) Narrative OPHTHALMOLOGY IMAGING EXAM - 10/18/2023 10:39 AM POST TENSIONING IRONWORKER HELPER OCT device used was Cirrus . Right Eye Reliability was good. Findings included normal observations, physiological/assymetrical cupping. Left Eye Reliability was borderline. Findings included normal observations, physiological/assymetrical cupping. Elvin Villalba M.D. OPHTH TOMOGRAPHY OPHTHALMOLOGY IMAGING EXAM documented in this encounter Visit Diagnoses Diagnosis Myopia Bilateral- Primary Dry Eye Syndrome Bilateral Keratitis Superficial Bilateral Glaucoma Suspect Ocular Hypertension Bilateral Dry Eye Syndrome Bilateral- Primary Glaucoma Suspect Ocular Hypertension Bilateral Keratitis Superficial Bilateral documented in this encounter
== END 2023-12-08 08:13 | disposition home or self-care (01) ==
LOC: MAMMO 08:13
PROVIDERS: PCP Family Medicine; Visit Provider Family Medicine
DX: Z12.31 Encounter for screening mammogram for malignant neoplasm of breast (principal)
CPT/HCPCS: 77063; 77067

== ENCOUNTER 2024-01-04 02:07 | Emergency (ER) | payer BC, SELFPAY ==
[2024-01-04 02:20] VITALS: BP 121/73; PULSE 81; RESP 18; TEMP 36.9; O2SAT 97; BMI 24.0
[2024-01-04] MEDS: hydrOXYzine pamoate 25 MG CAPSULE PO (03:00)
[2024-01-04] MEDS: AMOXICILLIN/CLAVULANATE 875 mg/125 mg TABLET PO (03:00)
[2024-01-04] MEDS: KETOROLAC 10 MG TABLET PO (03:00)
--- NOTE | 2024-01-04 03:00 | ED_ITS ---
HPI - General Adult General Chief complaint: Ear/Nose/Throat Problem Stated complaint: Ear pain Time Seen by Provider: 01/04/24 02:20 Source: patient Mode of arrival: ambulatory Limitations: no limitations History of Present Illness HPI narrative: 48-year-old female presents the emergency department in the middle of the night for left ear pain. No fever. No trauma or injury. Pain started a day and half ago, worsening in nature. Tried taking some Tylenol about 4 hours with no significant improvement in symptoms, denies ibuprofen use. No bleeding, may be having a little bit of watery drainage. Does use ear buds with her phone frequently. No prior history of ear surgeries, does note decreased hearing in the left ear, right side normal. Has had nasal congestion for about a week also. Has not tried ear drops, swabs or other treatments. Past medical history benign per her report, no major long-term health problems, no long-term prescription meds, no allergies. Nonsmoker with no pertinent travel. ROS notable for the HEENT symptoms as above only, otherwise denies times 12 systems. Related Data Previous Rx's Medication Instructions Recorded amoxicillin 875 mg-potassium See Rx Instructions .Route 01/04/24 clavulanate 125 mg tablet .COMPLEX 10 days #20 tabs ketorolac 10 mg tablet See Rx Instructions .Route 01/04/24 .COMPLEX PRN pain #15 tabs Allergies Allergy/AdvReac Type Severity Reaction Status Date / Time No Known Allergies Allergy Unknown Verified 08/16/23 08:25 [facility] Medical History History of vaginal delivery History of gestational diabetes mellitus (GDM) ?Z86.32 - Personal history of gestational diabetes (ICD-10) Surgical History Status post laparoscopy (01/31/19) ?Z98.890 - Other specified postprocedural states (ICD-10) History of sinus surgery ?Z98.890 - Other specified postprocedural states (ICD-10) Social History Narrative: non-smoker Little interest or pleasure in doing things: not at all Feeling down, depressed, or hopeless: not at all Exam Const: Vital Signs, click to edit/add: Vital Signs - 24 hr 01/04/24 02:20 Temperature 98.5 F Pulse Rate [Pulse Oximeter] 81 Respiratory Rate 18 Blood Pressure [Ri ght Upper Arm] 121/73 Pulse Oximetry 97 Oxygen Delivery Me thod Room Air Documenting provider has reviewed patient's vital signs: yes Common normals: no apparent distress Other: Friendly and cooperative, video dobby loom weaver used for encounter. HENMT: Common normals: normocephalic Head and scalp: normocephalic Other: Right TM normal. Left TM is red, dull and bulging with loss of light reflex but does not show signs of perforation. The ear canal is a bit inflamed, mostly just close to the TM and not so much the far external part. There is a tiny bit of watery discharge which seems consistent with the otitis externa as I do not appreciate any leakage or perforation from the drum itself. No tenderness to manipulation of the external ear and no signs of surrounding cellulitis or mastoiditis. The nose with some mild clear mucus rhinorrhea but oropharynx with acyanotic lips, moist membranes and no exudate to the pharynx. Eye: Common normals: conjunctivae normal General eye: normal appearance of both eyes Conjunctiva: conjunctiva(e) normal Neck & C-Spine: Common normals: full ROM and no lymphadenopathy Resp: Common normals: normal respiratory effort, no use of accessory muscles and clear to auscultation bilaterally Effort & inspection: able to speak in complete sentences Auscultation: clear to auscultation bilaterally Cardio: Common normals: regular rate, regular rhythm, S1 normal heart sound, S2 normal heart sound and no murmurs Rate: regular rate Rhythm: regular rhythm Heart sounds: S1 normal and S2 normal Extremity: Common normals: normal to inspection Psych: Common normals: speech normal Attitude: engaged Speech: normal speech Mood and affect: euthymic mood Insight: insight good Judgement: judgment good Skin: Common normals: no rashes or lesions noted General skin exam: no rashes or lesions noted Course Course ED Course: Otitis media with likely early otitis externa as well, no obvious signs of perforation of the eardrum. I recommend systemic treatment rather than localized. Will be given Augmentin here in the emergency department, discharged on additional 10 day course, pet adoption counselor on diarrhea, okay to use Imodium. Toradol for pain, 1st dose will be given with a single dose of Vistaril here in the ED and then 15 tablets of Toradol to use at home. Counseled on Tylenol as well. Written instructions provided. Also printed in Mandarin from [employer]. Video dobby loom weaver used for explanation of instructions as well. Alarm symptoms reviewed the or warrant ED presentation. She has noticed decreased hearing, this should improve within 2 weeks, if not would recommend ENT consult and primary care follow-up. She verbalizes understanding and agreement of plan. Vital Signs Vital signs: Initial Vital Signs Temperature 98.5 F 01/04/24 02:20 Temperature Source Temporal Artery Scan 01/04/24 02:20 Pulse Rate 81 01/04/24 02:20 Respiratory Rate 18 01/04/24 02:20 Blood Pressure 121/73 01/04/24 02:20 Blood Pressure Mean 89 01/04/24 02:20 Blood Pressure Position Sitting 01/04/24 02:20 Pulse Oximetry 97 01/04/24 02:20 Oxygen Delivery Method Room Air 01/04/24 02:20 Vital Signs Temperature 98.5 F 01/04/24 02:20 Pulse Rate 81 01/04/24 02:20 Respiratory Rate 18 01/04/24 02:20 Blood Pressure 121/73 01/04/24 02:20 Pulse Oximetry 97 01/04/24 02:20 Oxygen Delivery Method Room Air 01/04/24 02:20 Temperature 98.5 F 01/04/24 02:20 Pulse Rate 81 01/04/24 02:20 Respiratory Rate 18 01/04/24 02:20 Blood Pressure 121/73 01/04/24 02:20 Pulse Oximetry 97 01/04/24 02:20 Oxygen Delivery Method Room Air 01/04/24 02:20 Discharge Plan Discharge Clinical Impression: Acute left otitis media, Otitis externa Instructions: Ear Infection (ED) Additional Instructions: As we discussed, there seems to be an infection in the ear both behind the ear drum but also a little bit in the ear canal as well. No using any ear buds or ear plugs for the next couple of weeks. It is common to have a decrease in hear ing with this, this should return within the next week. Begin taking Augmentin, a strong antibiotic for the infection. He will use 1 pill 2 times daily for 10 days. You have been given your 1st dose in the emergency department, additional supply has been sent to your pharmacy. You will take your next dose at 3 or 4:00 p.m.. It is common for this to cause loose stools and diarrhea. It is okay to use [id number] Imodium to help combat the diarrhea. These ear infections are quite painful. I have given you a prescription for Toradol, and anti-inflammatory pain medicine to use up to every 6 hours. You may also use Tylenol 1000 mg every 6 hours also. It will take a few days before your ear starts to feel better. It is okay to use wmsx-yks-[id number] sleep aids such as melatonin or Benadryl to help you sleep. Try to avoid putting drops or oils into the ear. Do not use swabs in the ear. If her symptoms are not improving in 2 weeks, make a follow-up appointment at the clinic. If you have very high fever, weakness, severe headache and or neck stiffness with this, you should come back to the emergency department. The drainage should clear up within a few days as well. Activity Level: Activity as Tolerated Discharge Diet: Regular Prescriptions: New amoxicillin-pot clavulanate 875-125 mg tablet See Rx Instructions .ROUTE .COMPLEX 10 Days Qty: 20 0RF Rx Instructions: one pill by mouth twice daily for ear infection ketorolac 10 mg tablet See Rx Instructions .ROUTE .COMPLEX PRN (Reason: pain) Qty: 15 0RF Rx Instructions: 1 pill by mouth every 6 hours as needed for ear pain. maximum total duration of 5 days from all formulations Follow Up/Referrals: Tab Christie MD [Primary Care Provider] - Stand Alone Forms: Basis[employer] Info Instructions
== END 2024-01-04 03:32 | disposition home or self-care (01) ==
LOC: ED 02:53
PROVIDERS: Emergency Provider Family Medicine; PCP Family Medicine
DX: H66.92 Otitis media, unspecified, left ear (principal)
CPT/HCPCS: 99283; A9270

== ENCOUNTER 2024-10-03 20:53 | Emergency (ER) | payer BC, SELFPAY ==
--- NOTE | 2024-10-03 20:57 | ED_ITS ---
HPI - General Adult General Date Seen: 10/03/24 Chief complaint: Abdominal Pain Stated complaint: abdominal pain started Wednesday Time Seen by Provider: 10/03/24 20:57 History of Present Illness HPI narrative: Forty-six 9-year-old female presenting to the ER today with abdominal pain. She has had care through the [facility] couple of years ago. She also has a past medical history of dyspareunia, constipation, sinusitis, endometriosis, hearing loss. History is obtained using an iPad base bilingual interpreter service She patient reports symptoms beginning Wednesday morning. She has several complaints. First she is concerned that she is having some D like burning with urination that started since Wednesday and with that some lower abdominal discomfort. She felt like she might be about to get her period, but it did not come. Also today she has developed some pain affecting both of her flanks (possibly the left flank more than the right flank). She is not running and objective fever, but has felt warm and took some Tylenol or ibuprofen to help her fever come down. She is not nauseous or vomiting. No upper abdominal pain. Bowel movements normal. She is not having any vaginal discharge or bleeding. She does not recall any previous history of bladder infections. Second her daughter is also been sick with ?the flu. ?. She has also noted some nasal congestion, phlegm in her throat, and body aches with that. She feels like she is having trouble breathing because her nose is stuffed up. She is not really short of breath because of a lung problem. Related Data Previous Rx's ?Medication ?Instructions ?Recorded fluticasone propionate 50 1 spray intranasal QDAY #16 grams 01/17/24 mcg/actuation nasal spray,suspension Allergies Allergy/AdvReac Type Severity Reaction Status Date / Time No Known Allergies Allergy Unknown Verified 03/15/24 09:16 [facility] Medical History History of vaginal delivery History of gestational diabetes mellitus (GDM) ?Z86.32 - Personal history of gestational diabetes (ICD-10) Surgical History Status post laparoscopy (01/31/19) ?Z98.890 - Other specified postprocedural states (ICD-10) History of sinus surgery ?Z98.890 - Other specified postprocedural states (ICD-10) Social History Narrative: non-smoker Smoking Status: Never smoker Do you use any of these nicotine containing products: None Second hand tobacco smoke exposure: No How often do you have a drink containing alcohol: never AUDIT-C Alcohol total score: 0 Non-prescribed substance use: denies use Exam Narrative: Exam Narrative: Constitutional: Appears well-developed and well-nourished. Alert. Conversant through bilingual interpreter and does understand some Danish and answers simple questions. Non toxic. HENT: Head: Atraumatic. Nose: Mild mucosal irritation. No purulent drainage. TMs normal bilaterally. Mouth/Throat: Oral mucosa is clear and moist. no trismus. Pharynx mildly erythematous. Tonsils symmetric. No tonsillar enlargement, or exudate. Eyes: Conjunctivae normal. EOM normal. Pupils equal, round, and reactive to light. No scleral icterus. Neck: Normal range of motion. Neck supple. No tracheal deviation present. Cardiovascular: Normal rate, regular rhythm. No gallop. No friction rub. No murmur heard. Symmetric radial artery pulses Pulmonary/Chest: Effort normal. No stridor. No respiratory distress. No wheezes. No rales. No rhonchi . No tenderness. Abdominal: Soft. Bowel sounds normal. No distension. No mass. Mild suprapubic tenderness. No rebound. No guarding. No right lower quadrant tenderness. No Rovsing sign. No CVA tenderness Musculoskeletal: RUE: Normal range of motion. No tenderness. No deformity LUE: Normal range of motion. No tenderness. No deformity RLE: Normal range of motion. No edema. No tenderness. No deformity LLE: Normal range of motion. No edema. No tenderness. No deformity Neurological: Alert and oriented to person, place, and time. Normal strength. CN II-VII intact. No sensory deficit. GCS eye subscore is 4. GCS verbal subscore is 5. GCS motor subscore is 6. Normal coordination Skin: Skin is warm and dry. No rash noted. No pallor. Normal capillary refill. Psychiatric: Normal mood. Normal affect. Const: Vital Signs, click to edit/add: Vital Signs - 24 hr 10/03/24 21:05 10/03/24 22:46 Temperature 99.4 F 99.4 F Pulse Rate [Pulse Oximeter] 103 H 85 Respiratory Rate 18 18 Blood Pressure [Ri ght Upper Arm] 136/80 125/70 Pulse Oximetry 97 97 Oxygen Delivery Me thod Room Air Room Air Course Vital Signs Vital signs: Initial Vital Signs Temperature 99.4 F 10/03/24 21:05 Temperature Source Temporal Artery Scan 10/03/24 21:05 Pulse Rate 103 H 10/03/24 21:05 Respiratory Rate 18 10/03/24 21:05 Blood Pressure 136/80 10/03/24 21:05 Blood Pressure Mean 98 10/03/24 21:05 Blood Pressure Position Sitting 10/03/24 21:05 Pulse Oximetry 97 10/03/24 21:05 Oxygen Delivery Method Room Air 10/03/24 21:05 Vital Signs Temperature 99.4 F 10/03/24 21:05 Pulse Rate 103 H 10/03/24 21:05 Respiratory Rate 18 10/03/24 21:05 Blood Pressure 136/80 10/03/24 21:05 Pulse Oximetry 97 10/03/24 21:05 Oxygen Delivery Method Room Air 10/03/24 21:05 Temperature 99.4 F 10/03/24 22:46 Pulse Rate 85 10/03/24 22:46 Respiratory Rate 18 10/03/24 22:46 Blood Pressure 125/70 10/03/24 22:46 Pulse Oximetry 97 10/03/24 22:46 Oxygen Delivery Method Room Air 10/03/24 22:46 Medications Administered Medications: Generic Name Dose Route Start Last Admin Trade Name Freq PRN Reason Stop Dose Admin Oxymetazoline HCl 1 spray 10/03/24 21:19 10/03/24 21:32 Oxymetazoline 0.05% [place] NOSTRIL-B 1 spray BID PRN Administration Medical Decision Making [facility] Narrative Medical decision making narrative: This patient presents for evaluation of a couple of concerns. First, she has been experiencing needle-like pain in her urethra when she urinates for a few days as well as some lower abdominal pain and some flank pain. Symptoms clinically is consistent with a urinary tract infection. Urinal ysis confirms the infection. There has been no fever, significant abdominal pain. No significant tenderness or guarding or rebound on exam. There is no clinical evidence of pyelonephritis, appendicitis, colitis, diverticulitis or any intraabdominal catastrophe. At this point I think it is reasonable to treat her with a course of antibiotics for UTI. Since she is having some pain in her back, even though she is not febrile or toxic appearing, I think it is reasonable to do a 10 day course of antibiotics to treat for possible pyelonephritis rather than a typical short course for cystitis. The patient will be started on antibiotics for the infection. Instymeds for cephalexin 500 b.i.d. for 10 days. Urine culture pending. Return if increasing pain, vomiting, fever, or inability to tolerate the oral antibiotic. Second, she also notes that her child had ?the flu. ? A couple of days ago now she has some nasal congestion and phlegm. This is consistent with an upper respiratory tract infection. Viral testing is negative for coronavirus and influenza.. There is no signs at this point of serious bacterial infection such as OM, RPA, epiglottitis, PRINCIPAL CONSULTING ENGINEER, strep pharyngitis, pneumonia, sinusitis, meningitis, bacteremia, serious bacterial infection. Given clear lungs, fever curve, no hypoxia and no respiratory distress I do not feel a CXR is indicated at this point as the probability of bacterial pneumonia is very unlikely. She has no nausea or vomiting, at this point and no signs of dehydration. Close followup with primary care physician is indicated. Return to ED for fever > 103, protracted vomiting, confusion, or other worsening. Follow up with primary physician is indicated if not improving in 2-3 days. Lab Data Labs: Lab Results 10/03/24 Range/Units 21:25 Urine Color Yellow (Yellow) Urine Appearance Clear (Clear) Urine pH 6.5 (5.0-8.5) Ur Specific [place] 1.010 (1.000-1.030) Urine Protein 1+ A (Negative) Urine Glucose (UA) Negative (Negative) Urine Ketones Negative (Negative) Urine Blood 3+ A (Negative) Urine Nitrite Negative (Negative) Urine Bilirubin Negative (Negative) Urine Urobilinogen 0.2 (0.2-1.0) Ur Leukocyte Esterase 3+ A (Negative) Urine RBC 0-2 (0-2) Urine WBC 10-25 A (0-5) Ur Squamous Epith Cells Few (None-Few) Urine Bacteria Few A (None) Urine HCG, Qual Negative (Negative) SARS-CoV-2 (PCR) Negative SARS-CoV-2 (Negative) Influenza Type A (PCR) Negative PCR FLU A (Negative) Influenza Type B (PCR) Negative PCR FLU B (Negative) RSV (PCR) Negative PCR RSV (Negative) Discharge Plan Discharge Clinical Impression: UTI (urinary tract infection), URI (upper respiratory infection) Patient Disposition: Home, Self-Care Condition: Stable Instructions: Urinary Tract Infection in Women (DC) Additional Instructions: Please take the antibiotics 2 times daily for 10 days. You should start to feel better after 1 or 2 days. If you are not completely improved within 3 or 4 days, please recheck with your doctor or come back to the ER to be rechecked. If you have worsening symptoms, such as high fever, severe pain in your abdomen, vomiting or dehydration, weakness, or any other problems please come back to the ER right away. Prescriptions: No Action fluticasone propionate 50 mcg/actuation spray,suspension 1 spray intranasal QDAY Qty: 16 2RF Rx Instructions: administer into each nostril Follow Up/Referrals: Tab Christie MD [Primary Care Provider] - Stand Alone Forms: betNOW Info Instructions
[2024-10-03 21:05] VITALS: BP 136/80; PULSE 103; RESP 18; TEMP 37.4; O2SAT 97; BMI 25.0
[2024-10-03] MEDS: OXYMETAZOLINE 0.05% NASAL SPRAY 1 SPRAY NOSTRIL-B (21:32)
--- OUTSIDE RECORDS SUMMARY | 2024-10-03 21:34 | XMS_ITS ---
Author Organization [facility] Address [address] [place] [address] Care Team Providers Care Target Man Name Role Phone Unavailable Unavailable Unavailable Surgery Details Not on file Complications Check Surgery Details section. Procedure Estimated Blood Loss Check Surgery Details section. Procedure Findings Check Surgery Details section. Procedure Specimens Taken Check Surgery Details section.
--- OUTSIDE RECORDS SUMMARY | 2024-10-03 21:34 | XMS_ITS | Clinical Summary ---
Author Organization [facility] Address [address] [place] [address] Care Team Providers Care Commissioner Of Conciliation Name Role Phone Unavailable Primary Care Provider Unavailabl e Source Comments Patient records contain information from all sites at [facility]. For routine questions regarding patient records, call [phone] during business hours, M-F 8:00 AM - 5:00 PM Central Time. Record requests for emergency care only can be directed to [phone] at any time.[facility] Allergies No known active allergies Medications acetaminophen (TYLENOL) 325 mg tablet Take by mouth every 4 (four) hours as needed. 4 Active carboxymethylce -glycerin-polys orbate 80 (Refresh Optive Advanced) 0.5-1-0.5 % ophthalmic solution Administer 1 drop into both eyes 2 (two) times a day. 15 mL 11 4 11/21/19 25 Active white petrolatum-mine ral oiL (Refresh P.M.) 57.3-42.5 % ointment Apply 0.25 inches to both eyes at bedtime. 15 g 11 4 Active artificial tear,dxtrn-hpm- gly, (GenTeal Tears Moderate) 0.1-0.3-0.2 % drops ophthalmic solution Administer 1 drop into both eyes 4 (four) times a day. 15 mL 11 4 Active Active Problems No known active problems Immunizations Name Administration Dates Next Due Influenza Split 08/31/2002 influenza trivalent vaccine (6 months and older) (PF) 09/05/2008 Social History Tobacco Use Types Packs/Day Years Used Date Smoking Tobacco: Never Nutrition Answer Date Recorded Nutrition: EVOO Fat Source Unknown 01/01 Nutrition: Servings of Fruits/Vegetables per Day Not on file 01/01/2021 Dental Answer Date Recorded Dental: Regular Dentist Unknown 01/02/20 21 Comments Unknown Sex and Gender Information Value Date Recorded Sex Assigned at Not on file Legal Sex Female 2:20 AM TRAIN MASTER Gender Identity Not on file Sexual Orientation Not on file Last Filed Vital Signs Vital Sign Reading Time Taken Comments Blood Pressure 100/50 09/28/2014 2:23 PM TRAIN MASTER Pulse 80 09/28/2014 2:23 PM TRAIN MASTER Temperature - - Respiratory Rate - - Oxygen Saturation - - Inhaled Oxygen Concentration - - Weight 51.1 kg (112 lb 10.5 oz) 09/28/2014 2:23 PM TRAIN MASTER Height - - Body Mass Index - - Plan of Treatment Health Maintenance Due Date Last Done Comments CT Colonography 1975 Cologuard 1975 Colonoscopy 1975 Colorectal Cancer Screening 1975 FIT 1975 Fasting Glucose for Diabetes Screening 1975 HIV Screening 1975 Hepatitis C Screening 1975 Lipid (Cholesterol) Screening 1975 Mammogram 1975 Hepatitis B Vaccines (1 of 3 - 19+ 3-dose series) 1994 Depression Screening (Annual PHQ-2) 11/01/2023 Cervical/Vaginal Cancer Screening 04/18/2024 04/18/2021 COVID-19 Vaccine ( - season) 2024 11/15/2021, 03/27/2021, 02/27/2021 Influenza Vaccine (#1) 2024 8, 10/18/2009, 09/05/2008, Additional history exists DTaP,Tdap,and Td Vaccines (2 - Td or Tdap) 06/03/2025 06/03/2015 IPV Vaccines Aged Out No longer eligi ble based on patient's age to complete this topic Pneumococcal vaccine (0-64 years) Aged Out No longer eligible based on patient's age to complete this topic Insurance [facility] [place] [id number]
--- OUTSIDE RECORDS SUMMARY | 2024-10-03 21:34 | XMS_ITS | Clinical Summary ---
Author Organization [facility] Address [place], [place] [address] Care Team Providers Care Store Operations Specialist Name Role Phone Clinic, No Pcp Or Primary Care Provider Unavaila ble Allergies No known active allergies Medications Medication Sig Dispensed Refills Start Date End Date Status benzonatate (TESSALON PERLES) 100 mg capsule Take 1 capsule by mouth 3 times daily if needed for cough. 20 capsule 1 09/28/2014 Active acetaminophen (TYLENOL) 325 mg tablet Take by mouth every 4 hours if needed. Max acetaminophen dose: 4000mg in 24 hrs. 0 10/29/2014 Active albuterol HFA (PRO-AIR,VENTOLIN ,PROVENTIL) 90 mcg/actuation inhalerIndication s:Cough Inhale 2 Puffs by mouth 4 times daily if needed. 1 Inhaler 0 10/29/2014 Active codeine-guaiFENes in (CHERATUSSIN AC) 10-100 mg/5 mL liquidIndications :Cough Take 5 mL by mouth every 4 hours if needed for Cough. Max dose 60 mL per 24 hrs. 360 mL 0 10/29/2014 Active Active Problems No known active problems Social History Tobacco Use Types Packs/Day Years Used Date Smoking Tobacco: Never Alcohol Use Standard Drinks/Week Comments No 0 (1 standard drink = 0.6 oz pur e alcohol) Sex and Gender Information Value Date Recorded Sex Assigned at Not on file Gender Identity Not on file Sexual Orientation Not on file Obstetrics History Last Filed Vital Signs Vital Sign Reading Time Taken Comments Blood Pressure 94/60 12/23/2016 8:39 AM NEON TUBE BENDER Pulse 67 12/23/2016 8:39 AM NEON TUBE BENDER Temperature 36.8 C (98.2 F) 10/29/2014 1:49 PM NEON TUBE BENDER Respiratory Rate 16 09/28/2014 3:26 PM NEON TUBE BENDER Oxygen Saturation 97% 12/23/2016 8:39 AM NEON TUBE BENDER Inhaled Oxygen Concentration - - Weight 54.7 kg (120 lb 9.6 oz) 12/23/2016 8:39 A M NEON TUBE BENDER Height - - Body Mass Index - - Plan of Treatment Health Maintenance Due Date Last Done Comments Tdap 1986 Depression screening for age 12+ 1987 HIV for age 15-65 1990 BMI (ht and wt on same day) for age 18+ 1993 Hepatitis C screening for ag e 18-79 1993 Tetanus booster 1995 Colonoscopy through age 75 2020 Lipids for age 45-75 2020 Mammogram for age 45-75 2020 Pap test for age 21-65 04/18/2024 , 04/18/2021, 11/03/2016 COVID-19 vaccine series ( season) 2024 Influenza for age 9-49 07/02/2024 Pneumococcal series for age 6-64 Aged Out No longer eligible b ased on patient's age to complete this topic Procedures Procedure Name Priority Date/Time Associated Diagnosis Comments WASHERY ENGINEER THIN PREP PAP SCREEN IMAGED Routine 04/18/2021 9:55 AM CDT from Last 3 Months or Most Recently Relevant to Health Maintenance Results * WASHERY ENGINEER THIN PREP PAP SCREEN IMAGED (04/18/2021 9:55 AM CDT) Case Report Gynecologic Cytology Report Case: [id number] Authorizing Provider: Carito Machado MD Collected: 04/18/2021 0955 Ordering Location: [facility] Received: 04/21/2021 0936 First Screen: Wendy Morris Specimen: WASHERY ENGINEER ThinPrep Vial Screening, Cervical/Vaginal 04/30/2021 1:47 PM [facility] INTERPRETATION/ RESULT NEGATIVE FOR INTRAEPITHELIAL LESION OR MALIGNANCY (NIL) (none) 04/30/2021 1:47 PM CDT [facility] IMEN ADEQUACY Satisfactory for evaluation Endocervical component present 04/30/2021 1:[address] [facility] HPV REQUEST HPV and PAP 04/30/2021 1:47 PM CDT [facility] Date of LMP 03/03/2021 04/30/2021 1:47 PM CDT [facility] Last Pap Date 11/03/2016 04/30/2021 1:[address] [facility] Last Pap Result NIL 1:[address] [facility] Additional Information 04/30/2021 1:[address] [facility] Comment: Interpreted at [facility] - [address], [place] [address] Automated Review Successful 04/30/2021 1:[address] [facility] Comment:Specimen processed s uccessfully by automated supervisor prep device, ThinPrep Imaging System, [employer] ANCILLARY TESTING WASHERY ENGINEER HPV Ordered, Please see separate report 04/30/2021 1:[address] [facility] Note The pap test is a screening technique, not a diagnostic procedure. It is used primarily to screen for squamous cancers and precursor lesions. Published studies have shown that it is subject to both false negative and false positive results. The pap test should not be used as the sole means to diagnose or exclude pre-malignant and malignant lesions. 04/30/2021 1:[address] [facility] Other (Cervical/Vagina l) 04/18/2021 9:55 AM CDT 04/21/2021 9:36 AM CDT Carito Machado MD PATHOLOGY/CYTOLOGY [facility] [address] [place] [address], [place] from Last 3 Months or Most Recently Relevant to Health Maintenance Care Teams Store Operations Specialist Relationship Specialty Start Date End Date Clinic, No Pcp Or . PCP - General 09/28/14
--- OUTSIDE RECORDS SUMMARY | 2024-10-03 21:34 | XMS_ITS | Referral Summary ---
Author Organization [facility] Address [address] [place] [address] Care Team Providers Care Wildlife Conservation Professor Name Role Phone Unavailable Primary Care Provider Unavailabl e Source Comments Patient records contain information from all sites at [facility]. For routine questions regarding patient records, call [phone] during business hours, M-F 8:00 AM - 5:00 PM Central Time. Record requests for emergency care only can be directed to [phone] at any time.[facility] Allergies No known active allergies Medications [...] on file Legal Sex Female 2:20 AM METAL MACHINIST Gender Identity Not on file Sexual Orientation Not on file Last Filed Vital Signs Vital Sign Reading Time Taken Comments Blood Pressure 100/50 09/28/2014 2:23 PM METAL MACHINIST Pulse 80 09/28/2014 2:23 PM METAL MACHINIST Temperature - - Respiratory Rate - - Oxygen Saturation - - Inhaled Oxygen Concentration - - Weight 51.1 kg (112 lb 10.5 oz) 09/28/2014 2:23 PM METAL MACHINIST Height - - Body Mass Index - - Plan of Treatment Not on file Insurance [facility]
[2024-10-03 21:35] LABS: Appearance Urine Clear (Clear); Bilirubin Urine Negative (Negative); Blood Urine 3+ (Negative); Color Urine Yellow (Yellow); Glucose Urine Negative (Negative); Ketones Urine Negative (Negative); Leukocyte Esterase Urine 3+ (Negative); Nitrite Urine Negative (Negative); Protein Urine 1+ (Negative); Ur HCG Qualitative* Negative (Negative); Urobilinogen Urine 0.2 (0.2-1.0); pH Urine 6.5 (5.0-8.5)
[2024-10-03 21:46] LABS: Bacteria Urine Few; RBC Urine 0-2 (0-2); Squamous Epithelial Cell Urine Few (None-Few)
[2024-10-03 22:15] LABS: PCR FLU A Negative PCR FLU A (Negative); PCR FLU B Negative PCR FLU B (Negative); PCR RSV Negative PCR RSV (Negative); SARS PCR* Negative SARS-CoV-2 (Negative)
[2024-10-03 22:46] VITALS: BP 125/70; PULSE 85; RESP 18; TEMP 37.4; O2SAT 97
[2024-10-03 23:10] VITALS: BP 125/70; PULSE 85; RESP 18; TEMP 37.4
== END 2024-10-03 23:11 | disposition home or self-care (01) ==
PROVIDERS: Emergency Provider Emergency Medicine; PCP Family Medicine
DX: N39.0 Urinary tract infection, site not specified (principal); J06.9 Acute upper respiratory infection, unspecified
CPT/HCPCS: 81001; 81025; 87086; 87186; 87631; 99283

== ENCOUNTER 2024-10-21 11:05 | Emergency (ER) | payer BC, SELFPAY ==
[2024-10-21 11:16] VITALS: BP 121/73; PULSE 70; RESP 18; TEMP 36.6; O2SAT 96; BMI 23.6
[2024-10-21 11:25] LABS: Appearance Urine Cloudy (Clear); Bilirubin Urine Negative (Negative); Blood Urine 3+ (Negative); Color Urine Red (Yellow); Glucose Urine Negative (Negative); Ketones Urine Negative (Negative); Leukocyte Esterase Urine 3+ (Negative); Nitrite Urine Negative (Negative); Protein Urine 3+ (Negative); Specific Gravity Urine 1.025 (1.000-1.030); Urobilinogen Urine 0.2 (0.2-1.0)
--- NOTE | 2024-10-21 11:39 | ED_ITS ---
HPI - Abdominal Pain General Time Seen by Provider: 11:33 Date Seen: 10/21/24 Chief Complaint: Abdominal Pain Stated Complaint: stomach pain Time Seen by Provider: 10/21/24 11:33 Source: patient, RN notes reviewed, old records reviewed and translator and interpreter Mode of arrival: ambulatory Limitations: no limitations History of Present Illness HPI narrative: Up this 49-year-old female is coming in with recurrent hematuria and pain with urination. She does have low abdominal pain but with urination. She started noting recurrent symptoms this morning. She was diagnosed with a UTI here in the ER on October 03. She had similar symptoms. She states it is almost needle burning type sensation when she urinates. She has noted no fevers or chills, no nausea or vomiting. She denies any vaginal discharge at this time. She has had 4 pregnancies, did have deep laparoscopic left salpingo oophorectomy and lysis of adhesions for endometrioma here at [facility] on 01/31/2019. In stable monogamous relationship, no history of STIs. Five her urinalysis grew E coli from her recent visit, sensitive with the exception of intermediate resistance to levofloxacin and nitrofurantoin. Related Data Previous Rx's ?Medication ?Instructions ?Recorded fluticasone propionate 50 1 spray intranasal QDAY #16 grams 01/17/24 mcg/actuation nasal spray,suspension Allergies Allergy/AdvReac Type Severity Reaction Status Date / Time No Known Allergies Allergy Unknown Verified 03/15/24 09:16 Review of Systems Status of ROS Reports: 6 or more systems reviewed and unremarkable except as noted in History and below [facility] Medical History History of vaginal delivery History of gestational diabetes mellitus (GDM) ?Z86.32 - Personal history of gestational diabetes (ICD-10) Surgical History Status post laparoscopy (01/31/19) ?Z98.890 - Other specified postprocedural states (ICD-10) History of sinus surgery ?Z98.890 - Other specified postprocedural states (ICD-10) Social History Narrative: non-smoker Smoking Status: Never smoker Do you use any of these nicotine containing products: None Second hand tobacco smoke exposure: No How often do you have a drink containing alcohol: never AUDIT-C Alcohol total score: 0 Non-prescribed substance use: denies use service: No Exam Const: Vital Signs, click to edit/add: Vital Signs - 24 hr 10/21/24 11:16 Temperature 97.8 F Pulse Rate [Pulse Oximeter] 70 Respiratory Rate 18 Blood Pressure [Le ft Upper Arm] 121/73 Pulse Oximetry 96 Oxygen Delivery Me thod Room Air This 49-year-old female is alert, interactive, no apparent distress. Speaking normally without difficulty. Lungs clear, no tachypnea, no wheezing or crackles. CV regular rate and rhythm, no murmur, normal S1-S2. Abdomen is soft, nondistended, normal bowel sounds, no rebound or guarding, no masses, no organomegaly. Documenting provider has reviewed patient's vital signs: yes Course Course ED Course: Will await urinalysis results, this was collected in triage. Will confirm negative status as well. She has not had any labs done, will do CBC and basic metabolic panel just to ensure stable baseline labs. Doubt that we need imaging at this time but will consider if there is any abnormalities with her chemistries are white count. She likely just needs antibiotics for UTI and maybe longer course. Reevaluation(s) Time of Reevaluation #1: 12:33 Reevaluation #1: Have reviewed urinalysis, more hematuria and less pyuria than prior urinalysis. Her CBC is normal. Still pending BMP. I still suspect recurrent UTI but do think we need to ensure that there is no underlying kidney stone. Will proceed with noncontrast CT of abdomen and pelvis. Do not think we need IV contrast to look for infection. She overall is stable as far as no fevers, hemodynamically stable. I would like the imaging to ensure no obstructive process. Time of Reevaluation #2: 14:30 Reevaluation #2: Reviewed reassuring labs, CT that is reassuring with patient. We discussed how urinary tract infections can cause bleeding of the bladder. She did have questions on that. We discussed hemorrhagic bacteria that invaded and irritate the bladder wall. She is requesting antibiotics from [facility]. She was on Keflex 500 mg b.i.d. for 10 days per prior documentation. Will send her on Augmentin, will do longer course for this patient given this is likely extension of initial infection. Vital Signs Vital signs: Initial Vital Signs Temperature 97.8 F 10/21/24 11:16 Temperature Source Temporal Artery Scan 10/21/24 11:16 Pulse Rate 70 10/21/24 11:16 Pulse Rhythm Regular 10/21/24 11:16 Respiratory Rate 18 10/21/24 11:16 Blood Pressure 121/73 10/21/24 11:16 Blood Pressure Mean 89 10/21/24 11:16 Blood Pressure Position Semi-Fowlers 10/21/24 11:16 Pulse Oximetry 96 10/21/24 11:16 Oxygen Delivery Method Room Air 10/21/24 11:16 Vital Signs Temperature 97.8 F 10/21/24 11:16 Pulse Rate 70 10/21/24 11:16 Respiratory Rate 18 10/21/24 11:16 Blood Pressure 121/73 10/21/24 11:16 Pulse Oximetry 96 10/21/24 11:16 Oxygen Delivery Method Room Air 10/21/24 11:16 Temperature 97.8 F 10/21/24 11:16 Pulse Rate 70 10/21/24 11:16 Respiratory Rate 18 10/21/24 11:16 Blood Pressure 121/73 10/21/24 11:16 Pulse Oximetry 96 10/21/24 11:16 Oxygen Delivery Method Room Air 10/21/24 11:16 MDM - Abdominal Pain Lab Data Attestation: I reviewed the patient's lab results. Labs: Lab Results 10/21/24 10/21/24 10/21/24 Range/Units 11:54 12:03 Unknown WBC 7.85 (4.50-11.00) K/uL RBC 4.34 (4.00-5.20) m/uL Hgb 12.7 (12.0-16.0) gm/dL Hct 39.0 (33.0-51.0) % MCV 90 (80-100) fL MCH 29 (26-34) pg MCHC 33 (32-36) gm/dL RDW Coeff of Demarcus 11.5 (11.5-15.5) % Plt Count 222 (140-440) K/uL Neut % (Auto) 71.6 (42.0-72.0) % Lymph % (Auto) 18.7 L (20-44) % Blair % (Auto) 8.2 (0.0-11.0) % Eos % (Auto) 0.9 (0.0-7.0) % Baso % (Auto) 0.5 (0.0-3.0) % Neut # (Auto) 5.62 (1.7-7.0) K/uL Lymph # (Auto) 1.50 (0.90-2.90) K/uL Blair # (Auto) 0.60 (0.00-0.90) K/UL Eos # (Auto) 0.07 (0.00-0.50) K/uL Baso # (Auto) 0.04 (0.00-0.30) K/uL Abs Immat Gran (auto) 0.01 (0.00-0.30) K/uL Imm/Tot Granulo (auto) 0.1 % Sodium 138 (135-149) mmol/L Potassium 3.8 (3.6-5.1) mmol/L Chloride 109 (96-114) mmol/L Carbon Dioxide 25 (20-32) mmol/L Anion Gap 4 L (7-15) mEq/L BUN 13 (5-24) mg/dL Creatinine 0.3 L (0.5-1.5) mg/dL Estimated Creat Clear 194.92 Estimated GFR 130 ml/min Glucose 98 (60-115) mg/dL Calcium 8.9 (8.4-10.6) mg/dL Urine Color Red A (Yellow) Urine Appearance Cloudy A (Clear) Urine pH 7.0 (5.0-8.5) Ur Specific Eagle 1.025 (1.000-1.030) Urine Protein 3+ A (Negative) Urine Glucose (UA) Negative (Negative) Urine Ketones Negative (Negative) Urine Blood 3+ A (Negative) Urine Nitrite Negative (Negative) Urine Bilirubin Negative (Negative) Urine Urobilinogen 0.2 (0.2-1.0) Ur Leukocyte Esterase 3+ A (Negative) Urine RBC >100 A (0-2) Urine WBC 5-10 A (0-5) Ur Squamous Epith Cells Few (None-Few) Urine Bacteria Few A (None) Urine HCG, Qual Negative (Negative) Lab Acknowledgement Test Added Imaging Data CT scan - abdomen: Attestation: I have reviewed the pertinent imaging results. Radiologist's impression: Patient: KAYLEE MARTINS Facility:?[facility] Patient ID:?[id number] Site Patient ID:?[id number]. Site :?[id number] Study:?CT-Abdomen/Pelvis WO-10/21/2024 1:05:24 PM Ordering Physician:Kevin Barnett Final Report: INDICATION: Hematuria. TECHNIQUE: Multiplanar CT examination of the abdomen and pelvis was performed without the use of intravenous contrast. COMPARISON: CT abdomen pelvis 11/06/2018. FINDINGS: Lower chest: No focal consolidation. Normal heart size. No pleural effusions or pneumothorax. Dependent atelectasis. Liver: Unremarkable. Gallbladder: Unremarkable. Biliary: Unremarkable. Pancreas: Within normal limits. Spleen: Unremarkable. Adrenal glands: Unremarkable. Renal/ureters/bladder: Normal in size. No obstructive uropathy. No hydronep hrosis or obstructive urinary calculi. The ureters appear unremarkable. The bladder is within normal limits. Limited evaluation for renal masses without the use of intravenous contrast. Tiny nonobstructive calculi within the collecting system of the left kidney Pelvis: Unremarkable uterus. No adnexal masses. Gastrointestinal: No bowel wall thickening or bowel obstruction. Normal appendix. No significant colonic diverticulosis. Mild colonic stool burden. Vasculature: No aortic aneurysm. No significant atherosclerotic calcifications. Lymph nodes: No pathologic lymphadenopathy by size criteria. Peritoneum: No free fluid or pneumoperitoneum. No drainable fluid collections. Abdominal wall/soft tissues: Unremarkable. Bones: No acute osseous abnormalities. IMPRESSION: 1. No hydronephrosis or obstructive urolithiasis. 2. Limited evaluation for renal masses without the use of intravenous contrast. 3. No acute abdominopelvic pathology. Please note that all CT scans at this facility use dose modulation, iterative reconstruction, and/or weight-based dosing when appropriate to reduce radiation dose to as low as reasonably achievable. Dictated by Ronal Perez MD @ 10/21/2024 2:01:13 PM (Electronic Signature) Discharge Plan Discharge Clinical Impression: Urinary tract infection Qualifiers: Urinary tract infection type: acute cystitis Hematuria presence: with hematuria Qualified Code(s): N30.01 - Acute cystitis with hematuria Patient Disposition: Home, Self-Care Condition: Stable Instructions: Urinary Tract Infection in Women (ED) Additional Instructions: Start Augmentin 875mg orally twice daily for 10 days. Drink plenty of fluids for a goal of clear looking urine. If you are not improving in the next couple of days, feel that you are worsening at any point, please seek re-evaluation. Activity Level: No Restrictions Prescriptions: No Action fluticasone propionate 50 mcg/actuation spray,suspension 1 spray intranasal QDAY Qty: 16 2RF Rx Instructions: administer into each nostril Follow Up/Referrals: Tab Christie MD [Primary Care Provider] - Stand Alone Forms: [employer] Info Instructions
[2024-10-21 11:58] LABS: Bacteria Urine Few; RBC Urine >100 (0-2); Squamous Epithelial Cell Urine Few (None-Few)
[2024-10-21 12:25] LABS: Basophils Absolute Auto 0.04 K/uL (0.00-0.30); Basophils Percent Auto 0.5 % (0.0-3.0); Eosinophils Absolute Auto 0.07 K/uL (0.00-0.50); Eosinophils Percent Auto 0.9 % (0.0-7.0); Hemoglobin* 12.7 gm/dL (12.0-16.0); Immature Granulocytes Abs Auto 0.01 K/uL (0.00-0.30); Immature Granulocytes Pct Auto 0.1 %; Lymphocytes Percent Auto 18.7 % (20-44); Mean Corpuscular HGB Conc 33 gm/dL (32-36); Mean Corpuscular Hemoglobin 29 pg (26-34); Mean Corpuscular Volume 90 fL (80-100); Monocytes Percent Auto 8.2 % (0.0-11.0); Neutrophils Absolute Auto 5.62 K/uL (1.7-7.0); Neutrophils Percent Auto 71.6 % (42.0-72.0); Platelet Count* 222 K/uL (140-440); RDW Coefficient of Variation % 11.5 % (11.5-15.5); Red Blood Count 4.34 m/uL (4.00-5.20); White Blood Count* 7.85 K/uL (4.50-11.00)
[2024-10-21 12:26] LABS: Slide Review Reflex No
[2024-10-21 12:27] LABS: Ur HCG Qualitative* Negative (Negative)
--- NOTE | 2024-10-21 12:34 | CRLHL7_ITS ---
For Patients: As a result of the Century Cures Act, medical imaging exams and procedure reports are released immediately into your electronic medical record. You may view this report before your referring provider. If you have questions, please contact your health care provider. INDICATION: Hematuria. TECHNIQUE: Multiplanar CT examination of the abdomen and pelvis was performed without the use of intravenous contrast. COMPARISON: CT abdomen pelvis 11/06/2018. FINDINGS: Lower chest: No focal consolidation. Normal heart size. No pleural effusions or pneumothorax. Dependent atelectasis. Liver: Unremarkable. Gallbladder: Unremarkable. Biliary: Unremarkable. Pancreas: Within normal limits. Spleen: Unremarkable. Adrenal glands: Unremarkable. Renal/ureters/bladder: Normal in size. No obstructive uropathy. No hydronephrosis or obstructive urinary calculi. The ureters appear unremarkable. The bladder is within normal limits. Limited evaluation for renal masses without the use of intravenous contrast. Tiny nonobstructive calculi within the collecting system of the left kidney Pelvis: Unremarkable uterus. No adnexal masses. Gastrointestinal: No bowel wall thickening or bowel obstruction. Normal appendix. No significant colonic diverticulosis. Mild colonic stool burden. Vasculature: No aortic aneurysm. No significant atherosclerotic calcifications. Lymph nodes: No pathologic lymphadenopathy by size criteria. Peritoneum: No free fluid or pneumoperitoneum. No drainable fluid collections. Abdominal wall/soft tissues: Unremarkable. Bones: No acute osseous abnormalities. IMPRESSION: 1. No hydronephrosis or obstructive urolithiasis. 2. Limited evaluation for renal masses without the use of intravenous contrast. 3. No acute abdominopelvic pathology. Please note that all CT scans at this facility use dose modulation, iterative reconstruction, and/or weight-based dosing when appropriate to reduce radiation dose to as low as reasonably achievable. Dictated by Ronal Perez MD @ 10/21/2024 2:01:13 PM (Electronically Signed)
[2024-10-21 12:41] LABS: Chloride* 109 mmol/L (96-114); Potassium* 3.8 mmol/L (3.6-5.1); Sodium* 138 mmol/L (135-149)
[2024-10-21 12:44] LABS: Anion Gap 4 mEq/L (7-15); Blood Urea Nitrogen* 13 mg/dL (5-24); Carbon Dioxide* 25 mmol/L (20-32); Creatinine* 0.3 mg/dL (0.5-1.5); Est. Creatinine Clearance* 194.92; Estimated Glomerular Filt Rate 130 ml/min; Glucose* 98 mg/dL (60-115)
[2024-10-21 12:45] LABS: Calcium* 8.9 mg/dL (8.4-10.6)
== END 2024-10-21 15:01 | disposition home or self-care (01) ==
PROVIDERS: Emergency Provider Family Medicine; PCP Family Medicine
DX: N30.01 Acute cystitis with hematuria (principal)
CPT/HCPCS: 36415; 74176; 80048; 81001; 81025; 85025; 87086; 99283; 99284

== ENCOUNTER 2024-11-20 12:20 | Outpatient (CLI) | payer BC, SELFPAY | END 2024-11-20 12:21 | disposition home or self-care (01) | LOC: NFLDREF 11-22 02:14 | PROVIDERS: PCP Registered Nurse; Referring Provider Registered Nurse; Visit Provider Registered Nurse | DX: R31.9 Hematuria, unspecified (principal); N89.8 Other specified noninflammatory disorders of vagina; B97.89 Other viral agents as the cause of diseases classified elsewhere; B37.31 Acute candidiasis of vulva and vagina; N76.0 Acute vaginitis; B96.89 Other specified bacterial agents as the cause of diseases classified elsewhere | CPT/HCPCS: 87086 ==

== ENCOUNTER 2024-12-20 09:11 | Outpatient (CLI) | payer BC, SELFPAY | END 2024-12-20 09:12 | disposition home or self-care (01) | LOC: MAMMO 09:12 | PROVIDERS: PCP Registered Nurse; Visit Provider Family Medicine | DX: Z12.31 Encounter for screening mammogram for malignant neoplasm of breast (principal) | CPT/HCPCS: 77063; 77067 ==

== ENCOUNTER 2025-01-08 09:52 | Outpatient (CLI) | payer OTHER, SELFPAY | END 2025-01-08 09:53 | disposition home or self-care (01) | LOC: NFLDREF 09:53 | PROVIDERS: PCP Registered Nurse; Visit Provider Obstetrics & Gynecology | DX: Z13.220 Encounter for screening for lipoid disorders (principal) | CPT/HCPCS: 80061 ==

== ENCOUNTER 2025-04-14 15:24 | Emergency (ER) | payer OTHER, SELFPAY ==
[2025-04-14 15:28] VITALS: BP 110/67; PULSE 116; RESP 16; TEMP 37.7; O2SAT 93
--- OUTSIDE RECORDS SUMMARY | 2025-04-14 15:28 | XMS_ITS | Clinical Summary ---
Author Organization [facility] Address [address] [place] [id number] Care Team Providers Care Hanging Flags Decorator Name Role Phone Clinic, No Pcp Or Primary Care Provider Unavaila ble Allergies No known active allergies Medications benzonatate (TESSALON PERLES) 100 mg capsule Take 1 capsule by mouth 3 times daily if needed for cough. 20 capsule 1 4 Active acetaminophen (TYLENOL) 325 mg tablet Take by mouth every 4 hours if needed. Max acetaminophen dose: 4000mg in 24 hrs. 0 4 Active albuterol HFA (PRO-AIR,JAMIE JULI,PROVENTIL) 90 mcg/actuation inhalerIndicat ions:Cough Inhale 2 Puffs by mouth 4 times daily if needed. 1 Inhaler 0 4 Active codeine-guaiFE Nesin (CHERATUSSIN AC) 10-100 mg/5 mL liquidIndicati ons:Cough Take 5 mL by mouth every 4 hours if needed for Cough. Max dose 60 mL per 24 hrs. 360 mL 0 4 Active Active Problems No known active problems Social History Tobacco Use Types Packs/Day Years Used Date Smoking Tobacco: Never Alcohol Use Standard Drinks/Week Comments No 0 (1 standard drink = 0.6 oz pur e alcohol) Comments No Sex and Gender Information Value Date Recorded Sex Assigned at Not on file Legal Sex Female 3:19 PM DONATIONS ATTENDANT Gender Identity Not on file Sexual Orientation Not on file Obstetrics History Last Filed Vital Signs Vital Sign Reading Time Taken Comments Blood Pressure 94/60 12/23/2016 8:39 AM DONATIONS ATTENDANT Pulse 67 12/23/2016 8:39 AM DONATIONS ATTENDANT Temperature 36.8 C (98.2 F) 10/29/2014 1:49 PM DONATIONS ATTENDANT Respiratory Rate 16 09/28/2014 3:26 PM DONATIONS ATTENDANT Oxygen Saturation 97% 12/23/2016 8:39 AM DONATIONS ATTENDANT Inhaled Oxygen Concentration - - Weight 54.7 kg (120 lb 9.6 oz) 12/23/2016 8:39 A M DONATIONS ATTENDANT Height - - Body Mass Index - - Plan of Treatment Health Maintenance Due Date Last Done Comments Tdap 1986 Depression screening for age 12+ 1987 HIV for age 15-65 1990 BMI (ht and wt on same day) for age 18+ 1993 Hepatitis C screening for ag e 18-79 1993 Hepatitis B series for 19+ ( 1 of 3 - 19+ 3-dose series) 1994 Tetanus booster 1995 Colonoscopy through age 75 2020 Lipids for age 45-75 2020 Mammogram for age 45-75 2020 Pap test for age 21-65 04/18/2024 , 04/18/2021, 11/03/2016 COVID-19 vaccine series ( - 2023- season) 2024 Influenza Vaccine (Season Ended) 2025 Pneumococcal series for age 6-49 Aged Out No longer eligible b ased on patient's age to complete this topic Procedures Procedure Name Priority Date/Time Associated Diagnosis Comments MEAT PICKLER THIN PREP PAP SCREEN IMAGED Routine 04/18/2021 9:55 AM CDT from Last 3 Months or Most Recently Relevant to Health Maintenance Results * MEAT PICKLER THIN PREP PAP SCREEN IMAGED (04/18/2021 9:55 AM CDT) Case Report Gynecologic Cytology Report Case: [id number] Authorizing Provider: Carito Machado MD Collected: 04/18/2021 0955 Ordering Location: [facility] Received: 04/21/2021 0936 First Screen: Wendy Morris Specimen: MEAT PICKLER ThinPrep Vial Screening, Cervical/Vaginal 04/30/2021 1:47 PM CDT [facility] ENTRAL LABORATORY INTERPRETATION/ RESULT NEGATIVE FOR INTRAEPITHELIAL LESION OR MALIGNANCY (NIL) (none) 04/30/2021 1:47 PM CDT [facility] at 1347 CDT SPECIMEN ADEQUACY Satisfactory for evaluation Endocervical component present 04/30/2021 1:47 PM CDT [facility] HPV REQUEST HPV and PAP 04/30/2021 1:47 PM CDT [facility] Date of LMP 03/03/2021 04/30/2021 1:47 PM CDT [facility] Last Pap Date 11/03/2016 04/30/2021 1:47 PM CDT [facility] Last Pap Result NIL 1:47 PM CDT [facility] Additional Information 04/30/2021 1:47 PM CDT [facility] Comment: Interpreted at [facility] - [address], [place] [address] Automated Review Successful 04/30/2021 1:47 PM CDT [facility] Comment:Specimen processed s uccessfully by automated hogshead mat inspector device, ThinPrep Imaging System, [employer] ANCILLARY TESTING MEAT PICKLER HPV Ordered, Please see separate report 04/30/2021 1:47 PM CDT [facility] Note The pap test is a [...] and malignant lesions. 04/30/2021 1:47 PM CDT [facility] Other (Cervical/Vagina l) 04/18/2021 9:55 AM CDT 04/21/2021 9:36 AM CDT us Carito Machado MD PATHOLOGY/CYTOLOGY Final R esult [facility] [address] [place] [address], from Last 3 Months or Most Recently Relevant to Health Maintenance Insurance [facility] [place] Care Teams Hanging Flags Decorator Relationship Specialty Start Date End Date Clinic, No Pcp Or . PCP - General 09/28/14
--- OUTSIDE RECORDS SUMMARY | 2025-04-14 15:28 | XMS_ITS | Clinical Summary ---
Author Organization [facility] Address [address] [place] [address] Care Team Providers Care Feeder Operator Automatic Name Role Phone Unavailable Primary Care Provider Unavailabl e Source Comments Patient records contain information from all sites at [facility]. For routine questions regarding patient records, call [phone] during business hours, M-F 8:00 AM - 5:00 PM Central Time. Record requests for emergency care only can be directed to [phone] at any time.[facility] Allergies No known active allergies Medications acetaminophen (TYLENOL) 325 mg tablet Take by mouth every 4 (four) hours as needed. 4 Active GenTeal Tears Moderate 0.1-0.3-0.2 % drops ophthalmic solution ADMINISTER 1 DROP INTO BOTH EYES FOUR TIMES A DAY 15 mL 12 5 Active GenTeal Tears Severe,petrolat , 94-3 % ointment APPLY 0.25 INCHES TO BOTH EYES AT BEDTIME. 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 Gender Identity Not on file Sexual Orientation Not on file Last Filed Vital Signs Vital Sign Reading Time Taken Comments Blood Pressure 100/50 09/28/2014 2:23 PM TRANSFER AND PUMPHOUSE OPERATOR Pulse 80 09/28/2014 2:23 PM TRANSFER AND PUMPHOUSE OPERATOR Temperature - - Respiratory Rate - - Oxygen Saturation - - Inhaled Oxygen Concentration - - Weight 51.1 kg (112 lb 10.5 oz) 09/28/2014 2:23 PM TRANSFER AND PUMPHOUSE OPERATOR Height - - Body Mass Index - - Plan of Treatment Health Maintenance Due Date Last Done Comments CT Colonography 1975 Cologuard 1975 Colonoscopy 1975 Colorectal Cancer Screening 1975 FIT 1975 Fasting Glucose for Diabetes Screening 1975 HIV Screening 1975 Hepatitis C Screening 1975 Lipid (Cholesterol) Screening 1975 Mammogram 1975 Hepatitis B Vaccines (1 of 3 - 19+ 3-dose series) 1994 Cervical/Vaginal Cancer Screening 04/18/2024 04/18/2021 COVID-19 Vaccine (3 - 2023-2 5 season) 2024 03/27/2021, 02/27/2021 Influenza Vaccine (#1) 2024 8, 09/05/2008, 08/31/2002 Depression Screening (Annual PHQ-2) 11/01/2024 DTaP,Tdap,and Td Vaccines (2 - Td or Tdap) 06/03/2025 06/03/2015 IPV Vaccines Aged Out No longer eligi ble based on patient's age to complete this topic Pneumococcal vaccine (0-49 years) Aged Out No longer eligible b ased on patient's age to complete this topic Insurance [facility]
--- NOTE | 2025-04-14 15:30 | CRLHL7_ITS ---
For Patients: As a result of the Century Cures Act, medical imaging exams and procedure reports are released immediately into your electronic medical record. You may view this report before your referring provider. If you have questions, please contact your health care provider. INDICATION: Syncope. TECHNIQUE: CT of the head without contrast. Coronal and sagittal reformats are included. COMPARISON: None. FINDINGS: No CT evidence of acute cortical infarct. No loss of solorio white matter differentiation. No hyperdense vessels to suggest intracranial thrombus. No acute intracranial hemorrhage. No mass effect or midline shift. No hydrocephalus or extra-axial collections. White matter is within normal limits for age. No acute osseous abnormalities. Mastoid air cells and paranasal sinuses are clear. Normal soft tissues. IMPRESSION: IMPRESSION:1. No CT evidence of acute cortical infarct. No acute intracranial hemorrhage. No other acute intracranial findings. Please note that all CT scans at this facility use dose modulation, iterative reconstruction, and/or weight-based dosing when appropriate to reduce radiation dose to as low as reasonably achievable. Dictated by Barry Booker MD @ 04/14/2025 4:04:35 PM (Electronically Signed)
--- NOTE | 2025-04-14 15:35 | ED_ITS ---
HPI - General Adult General Chief complaint: Syncope/Fainted Stated complaint: Fainted, unconsious, previous abdominal pain Time Seen by Provider: 04/14/25 15:29 History of Present Illness HPI narrative: This 49-year-old female was essentially carried in by family members because of unresponsive episode. Her adult children state that they saw on the home security camera that she was outside and down. They bring her in stating that she is not responding at all. She does arrive here breathing and reassuring vital signs. Soon after arrival she did start to answer questions and respond. Patient's family members state that she does not have any history of seizure. They state that she is on a medication but they are not certain what it is. The patient does not report any pain. Related Data Home Medications ?Medication ?Instructions ?Recorded ?Confirmed fluticasone propionate 50 1 spray intranasal .prn PRN 11/20/24 01/08/25 mcg/actuation nasal spray,suspension Allergies Allergy/AdvReac Type Severity Reaction Status Date / Time No Known Allergies Allergy Unknown Verified 01/08/25 09:24 Review of Systems Status of ROS: Reports: unobtainable due to medical condition [facility] Medical History History of vaginal delivery History of gestational diabetes mellitus (GDM) ?Z86.32 - Personal history of gestational diabetes (ICD-10) Surgical History Status post laparoscopy (01/31/19) ?Z98.890 - Other specified postprocedural states (ICD-10) History of sinus surgery ?Z98.890 - Other specified postprocedural states (ICD-10) Social History Narrative: non-smoker Smoking Status: Never smoker Do you use any of these nicotine containing products: None Second hand tobacco smoke exposure: No How often do you have a drink containing alcohol: never AUDIT-C Alcohol total score: 0 Non-prescribed substance use: denies use service: No Exam Narrative: Exam Narrative: Constitutional: Well-developed, well-nourished, no acute distress. HEENT: Normocephalic, atraumatic. Neck: Normal range of motion. Nontender. Supple. Heart: Regular. No murmurs. Tachycardia. Intact distal pulses. Lungs: Clear to auscultation. No chest discomfort. No wheezes, rhonchi, or ra les. Abdomen: Normal bowel sounds. Nontender. No rebound tenderness. Genitalia: Deferred. Back: No midline tenderness. Normal range of motion. Extremities: Normal range of motion. No injury. Skin: Intact. No rash. Warm. No erythema or pallor. Neurologic: No altered sensation. No weakness. Alert and oriented. Nursing notes and vitals signs are reviewed. Const: Vital Signs, click to edit/add: Vital Signs - 24 hr 04/14/25 15:28 Temperature 99.8 F H Pulse Rate [Pulse Oximeter] 116 H Respiratory Rate 16 Blood Pressure [Le ft Upper Arm] 110/67 Pulse Oximetry 93 Oxygen Delivery Me thod Room Air Course Vital Signs Vital signs: Initial Vital Signs Temperature 99.8 F H 04/14/25 15:28 Temperature Source Temporal Artery Scan 04/14/25 15:28 Pulse Rate 116 H 04/14/25 15:28 Respiratory Rate 16 04/14/25 15:28 Blood Pressure 110/67 04/14/25 15:28 Blood Pressure Mean 81 04/14/25 15:28 Pulse Oximetry 93 04/14/25 15:28 Oxygen Delivery Method Room Air 04/14/25 15:28 Vital Signs Temperature 99.8 F H 04/14/25 15:28 Pulse Rate 116 H 04/14/25 15:28 Respiratory Rate 16 04/14/25 15:28 Blood Pressure 110/67 04/14/25 15:28 Pulse Oximetry 93 04/14/25 15:28 Oxygen Delivery Method Room Air 04/14/25 15:28 Temperature 99.8 F H 04/14/25 15:28 Pulse Rate 116 H 04/14/25 15:28 Respiratory Rate 16 04/14/25 15:28 Blood Pressure 110/67 04/14/25 15:28 Pulse Oximetry 93 04/14/25 15:28 Oxygen Delivery Method Room Air 04/14/25 15:28 Medical Decision Making MDM Narrative Medical decision making narrative: This patient arrived with minimal responses but maintaining normal vital signs. Very soon after arrival she responded normally. She does not have any history of seizure. She did complain of abdominal pains. An IV was established and CT imaging of the head and abdomen are obtained. CT scan of the head is showing no acute findings. In the abdomen there is a obstructing 4 mm stone in the left proximal ureter. The patient did have an emesis here as I was relaying this information to her. She did receive IV doses of Zofran and Toradol. Her lactate returned elevated at 3.8 and she did receive a L of normal saline. She is not showing signs of sepsis despite this elevated lactate. She does have elevated liver enzymes. The patient herself speaks minimal Mongolian but her family members were able to translate in the declined any paraprofessional interpreter services. She is discharged home with prescriptions for Toradol, Lyons, and Zofran. Lab Data Labs: Lab Results 04/14/25 04/14/25 Range/Units 15:30 16:05 WBC 6.20 (4.50-11.00) K/uL RBC 4.52 (4.00-5.20) m/uL Hgb 13.5 (12.0-16.0) gm/dL Hct 41.2 (33.0-51.0) % MCV 91 (80-100) fL MCH 30 (26-34) pg MCHC 33 (32-36) gm/dL RDW Coeff of Demarcus 11.5 (11.5-15.5) % Plt Count 146 (140-440) K/uL Neut % (Auto) 85.3 H (42.0-72.0) % Lymph % (Auto) 12.4 L (20-44) % Anderson % (Auto) 1.3 (0.0-11.0) % Eos % (Auto) 0.2 (0.0-7.0) % Baso % (Auto) 0.5 (0.0-3.0) % Neut # (Auto) 5.30 (1.7-7.0) K/uL Lymph # (Auto) 0.80 L (0.90-2.90) K/uL Anderson # (Auto) 0.10 (0.00-0.90) K/UL Eos # (Auto) 0.01 (0.00-0.50) K/uL Baso # (Auto) 0.03 (0.00-0.30) K/uL Abs Immat Gran (auto) 0.02 (0.00-0.30) K/uL Imm/Tot Granulo (auto) 0.3 % Sodium 138 (135-149) mmol/L Potassium 3.0 L (3.6-5.1) mmol/L Chloride 107 (96-114) mmol/L Carbon Dioxide 19 L (20-32) mmol/L Anion Gap 12 (7-15) mEq/L BUN 16 (5-24) mg/dL Creatinine 0.7 (0.5-1.5) mg/dL Estimated GFR 106 ml/min Glucose 157 H (60-115) mg/dL Lactate 3.8 H (0.5-1.9) mmol/L Calcium 9.9 (8.4-10.6) mg/dL Total Bilirubin 2.5 H (0.1-1.5) mg/dL Direct Bilirubin 0.2 (0.0-0.5) mg/dL AST 340 H (12-35) U/L ALT 259 H (4-35) U/L Alkaline Phosphatase 128 (40-150) U/L Total Protein 7.6 (6.0-8.3) g/dL Albumin 4.4 (3.3-5.0) g/dL Urine Color Carmen A (Yellow) Urine Appearance Slightly Cloudy A (Clear) Urine pH 6.0 (5.0-8.5) Ur Specific [place] <= 1.005 (1.000-1.030) Urine Protein 2+ A (Negative) Urine Glucose (UA) Negative (Negative) Urine Ketones Negative (Negative) Urine Blood Trace-intact A (Negative) Urine Nitrite Negative (Negative) Urine Bilirubin Negative (Negative) Urine Urobilinogen 0.2 (0.2-1.0) Ur Leukocyte Esterase Trace A (Negative) Urine RBC 0-2 (0-2) Urine WBC 0-2 (0-5) Ur Squamous Epith Cells None (None-Few) Urine Bacteria None (None) Urine Opiates Screen Negative (Negative) Ur Oxycodone Screen Negative (Negative) Urine Methadone Screen Negative (Negative) Ur Barbiturates Screen Negative (Negative) U Tricyclic Antidepress Negative (Negative) Ur Phencyclidine Scrn Negative (Negative) Ur Amphetamines Screen Negative (Negative) U Methamphetamines Scrn Negative (Negative) U Benzodiazepines Scrn Negative (Negative) Urine Cocaine Screen Negative (Negative) U Marijuana (THC) Screen Negative (Negative) Ur Drug Screen Comment See Note Ethyl Alcohol < 0.01 (0.01-0.03) % SARS-CoV-2 (PCR) Negative SARS-CoV-2 (Negative) Influenza Type A (PCR) Negative PCR FLU A (Negative) Influenza Type B (PCR) Negative PCR FLU B (Negative) RSV (PCR) Negative PCR RSV (Negative) POC Troponin I 0.04 (0.01-0.04) ng/ml Imaging Data CT scan - abdomen: Radiologist's impression: Obstructing 4.4 millimeters stone in the left proximal ureter. CT scan - head: Radiologist's impression: No CT evidence of acute cortical infarct. No acute intracranial hemorrhage. No other acute intracranial findings. ECG Data Attestation: I personally reviewed and interpreted this ECG as follows: Interpretation: Sinus tachycardia. Rate 117 beats per minute. There are no specific ST or T- wave abnormalities. Discharge Plan Discharge Clinical Impression: Left ureteral calculus Patient Disposition: Home w/ Parent or Adult Condition: Stable Additional Instructions: Take medication as needed and indicated. Follow up with primary physician or return if symptoms are persistent or worsening. Prescriptions: No Action fluticasone propionate 50 mcg/actuation spray,suspension 1 spray intranasal .prn PRN Rx Instructions: administer into each nostril Follow Up/Referrals: Fernanda Ellison, RAILROAD CONDUCTOR [Primary Care Provider, Family Practice] Stand Alone Forms: [place] Info Instructions
[2025-04-14 15:39] LABS: Lactate* 3.8 mmol/L (0.5-1.9)
[2025-04-14 15:42] LABS: Basophils Absolute Auto 0.03 K/uL (0.00-0.30); Basophils Percent Auto 0.5 % (0.0-3.0); Eosinophils Absolute Auto 0.01 K/uL (0.00-0.50); Eosinophils Percent Auto 0.2 % (0.0-7.0); Hematocrit 41.2 % (33.0-51.0); Hemoglobin* 13.5 gm/dL (12.0-16.0); Immature Granulocytes Abs Auto 0.02 K/uL (0.00-0.30); Immature Granulocytes Pct Auto 0.3 %; Lymphocytes Percent Auto 12.4 % (20-44); Mean Corpuscular HGB Conc 33 gm/dL (32-36); Mean Corpuscular Hemoglobin 30 pg (26-34); Mean Corpuscular Volume 91 fL (80-100); Monocytes Percent Auto 1.3 % (0.0-11.0); Neutrophils Percent Auto 85.3 % (42.0-72.0); Platelet Count* 146 K/uL (140-440); RDW Coefficient of Variation % 11.5 % (11.5-15.5); Red Blood Count 4.52 m/uL (4.00-5.20)
[2025-04-14 15:45] LABS: Slide Review Reflex No
--- NOTE | 2025-04-14 15:56 | CRLHL7_ITS ---
For Patients: As a result of the Century Cures Act, medical imaging exams and procedure reports are released immediately into your electronic medical record. You may view this report before your referring provider. If you have questions, please contact your health care provider. Indication: ABD PAIN, ELEVATED LACTATE, SYNCOPE Technique: CT Abdomen/Pelvis 63CC ISOVUE 370 intravenous contrast Please note that all CT scans at this facility use dose modulation, iterative reconstruction, and/or weight-based dosing when appropriate to reduce radiation dose to as low as reasonably achievable. Comparison: 10/21/2024 Findings: Mild dependent atelectasis. Mild hepatic steatosis. Normal gallbladder and spleen. Normal pancreas and adrenal glands. Normal right kidney and right ureter. Bladder normal. Intramural uterine fibroid noted which measures 1.8 cm. No adnexal mass. Obstructing stone in the left proximal ureter measures 4.4 millimeters. Left perinephric stranding. Decreased left renal parenchymal enhancement. Normal appendix. No bowel obstruction or free air. Osseous structures are within normal limits. Impression: Obstructing 4.4 millimeters stone in the left proximal ureter. Please note that all CT scans at this facility use dose modulation, iterative reconstruction, and/or weight-based dosing when appropriate to reduce radiation dose to as low as reasonably achievable. Dictated by Heath Vale MD @ 04/14/2025 4:33:51 PM (Electronically Signed)
[2025-04-14 15:58] LABS: Troponin, Point-of-Care* 0.04 ng/ml (0.01-0.04)
[2025-04-14 15:59] LABS: Albumin* 4.4 g/dL (3.3-5.0); Chloride* 107 mmol/L (96-114)
[2025-04-14 16:00] LABS: Sodium* 138 mmol/L (135-149)
[2025-04-14 16:02] LABS: Anion Gap 12 mEq/L (7-15); Blood Urea Nitrogen* 16 mg/dL (5-24); Carbon Dioxide* 19 mmol/L (20-32); Creatinine* 0.7 mg/dL (0.5-1.5); Estimated Glomerular Filt Rate 106 ml/min
[2025-04-14 16:03] LABS: Alanine Aminotransferase* 259 U/L (4-35); Alkaline Phosphatase* 128 U/L (40-150); Aspartate Amino Transferase* 340 U/L (12-35); Bilirubin Direct* 0.2 mg/dL (0.0-0.5); Bilirubin Total* 2.5 mg/dL (0.1-1.5); Calcium* 9.9 mg/dL (8.4-10.6); Glucose* 157 mg/dL (60-115); Total Protein* 7.6 g/dL (6.0-8.3)
[2025-04-14 16:29] LABS: Ethanol* < 0.01 % (0.01-0.03)
[2025-04-14 16:36] LABS: Appearance Urine Slightly Cloudy (Clear); Bilirubin Urine Negative (Negative); Blood Urine Trace-intact (Negative); Color Urine Amber (Yellow); Glucose Urine Negative (Negative); Ketones Urine Negative (Negative); Leukocyte Esterase Urine Trace (Negative); Nitrite Urine Negative (Negative); Protein Urine 2+ (Negative); Specific Gravity Urine <= 1.005 (1.000-1.030); Urobilinogen Urine 0.2 (0.2-1.0)
[2025-04-14 16:40] LABS: PCR FLU A Negative PCR FLU A (Negative); PCR FLU B Negative PCR FLU B (Negative); PCR RSV Negative PCR RSV (Negative); SARS PCR* Negative SARS-CoV-2 (Negative)
[2025-04-14 16:45] LABS: Amphetamine Screen Urine Negative (Negative); Barbiturate Screen Urine Negative (Negative); Benzodiazepines Screen Urine Negative (Negative); Cannabinoid Screen Urine Negative (Negative); Cocaine Screen Urine Negative (Negative); Methadone Screen Urine Negative (Negative); Methamphetamines Screen Urine Negative (Negative); Opiate Screen Urine Negative (Negative); Oxycodone Screen Urine Negative (Negative); Phencyclidine Screen Urine Negative (Negative); Tricyclic Antidepressant Urine Negative (Negative)
[2025-04-14 16:47] LABS: RBC Urine 0-2 (0-2); WBC Urine 0-2 (0-5)
[2025-04-14] MEDS: ONDANSETRON 2 MG/ML inj 4 MG IVP (17:10)
[2025-04-14] MEDS: 0.9 % SODIUM CHLORIDE 1000 ml 1,000 ML IV (17:10)
[2025-04-14] MEDS: KETOROLAC 15 MG/ML inj IVP (17:10)
== END 2025-04-14 17:31 | disposition home or self-care (01) ==
PROVIDERS: Emergency Provider Emergency Medicine Emergency Medical Services; PCP Registered Nurse
DX: N20.1 Calculus of ureter (principal); R40.4 Transient alteration of awareness
CPT/HCPCS: 36415; 70450; 74177; 80048; 80076; 80306; 81001; 82077; 83605; 84484; 85025; 87040; 87086; 87631; 87800; 93005; 96374; 96375; 99284; 99285; J1885; J2405; J7030; Q9967

== ENCOUNTER 2025-04-18 13:48 | Emergency (ER) | payer OTHER, SELFPAY ==
[2025-04-18] VITALS (29 sets, daily range): BP systolic 98–122; BP diastolic 64–71; PULSE 77–107; RESP 14–31; TEMP 37.3; O2SAT 94–98; BMI 24.5
--- OUTSIDE RECORDS SUMMARY | 2025-04-18 13:58 | XMS_ITS | Clinical Summary ---
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 For routine questions regarding patient records, call [phone] during business hours, M-F 8:00 AM - 5:00 PM Central Time. 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
--- NOTE | 2025-04-18 14:12 | CRLHL7_ITS ---
For Patients: As a result of the Century Cures Act, medical imaging exams and procedure reports are released immediately into your electronic medical record. You may view this report before your referring provider. If you have questions, please contact your health care provider. Indication: Shortness of breath Comparison: CTs abdomen and pelvis April 18, 2025 Technique: PA and lateral views of the chest Findings: There is diffuse central bronchial thickening without dense consolidation, effusion or pneumothorax. The cardiomediastinal silhouette is within normal limits. The bony thorax is grossly intact. Impression: Diffuse interstitial prominence which may represent bronchial thickening versus mild pulmonary vascular congestion. No obvious dense consolidation. Dictated by Marshall Cerna MD @ 04/18/2025 3:35:47 PM (Electronically Signed)
--- NOTE | 2025-04-18 14:45 | ED.GENADULT ---
HPI - General Adult General Chief complaint: Shortness of Breath/Dyspnea Stated complaint: Trouble breathing, chest pain Time Seen by Provider: 04/18/25 14:09 Source: patient Mode of arrival: ambulatory Limitations: language barrier History of Present Illness HPI narrative: 49-year-old female presenting to the ER after she got a phone call earlier today that she had a positive blood culture. Patient states that she likely would have come into the ER anyways because she feels terrible. She complains of chest pain, shortness of breath, difficulty breathing, back pain and epigastric abdominal pain. All of these things have been going on for about a week. She will have episodes were all the sudden she can not breathe and she starts to hyperventilate she then crawled into a position and that is when her back and abdomen hurt. These episodes last several minutes sometimes 1/2 hour. Today she had an episode that lasted for an hour. No fevers or chills that the family is aware of. No diarrhea or urinary symptoms but the patient states that she has a hard time controlling both urine and bowel and that she can make it to the bathroom sometimes. Her daughter, who is home visiting from college, states that couple of days ago her mother told her that she felt that someone was after her inside the house so she had to scoot herself outside the house and once she was sitting outside of her home she felt better. Patient was seen 4 days ago after what was described as an episode of unresponsiveness - she was found to have a kidney stone. Patient denies any flank pain. She also had positive urine cultures and positive blood cultures. She was discharged home on Keflex. Patient states that she has not been eating anything, only drinks a little bit of water here in there. Vomited multiple times over the last week, did vomit today as well. Related Data Home Medications ?Medication ?Instructions ?Recorded ?Confirmed fluticasone propionate 50 1 spray intranasal .prn PRN 11/20/24 01/08/25 mcg/actuation nasal spray,suspension Previous Rx's ?Medication ?Instructions ?Recorded cephalexin 500 mg capsule 500 mg PO TID 7 days #21 caps 04/15/25 Allergies Allergy/AdvReac Type Severity Reaction Status Date / Time No Known Allergies Allergy Unknown Verified 04/18/25 17:22 Review of Systems Status of ROS: Reports: 10 or more systems reviewed and unremarkable except as noted in History and below [facility] Medical History History of vaginal delivery History of gestational diabetes mellitus (GDM) ?Z86.32 - Personal history of gestational diabetes (ICD-10) Surgical History Status post laparoscopy (01/31/19) ?Z98.890 - Other specified postprocedural states (ICD-10) History of sinus surgery ?Z98.890 - Other specified postprocedural states (ICD-10) Social History Narrative: non-smoker Smoking Status: Never smoker Do you use any of these nicotine containing products: None Second hand tobacco smoke exposure: No How often do you have a drink containing alcohol: never AUDIT-C Alcohol total score: 0 Non-prescribed substance use: denies use service: No Exam Narrative: Exam Narrative: Well-nourished well-developed patient , disheveled. Patient speaks in full sentences without needing to catch her breath. During our conversation all of a sudden patient started hyperventilating and crawled into a position, this lasted approximately 10 seconds. HEENT: Normocephalic atraumatic. Pupils are equally round reactive to light. Extraocular muscles are intact. Conjunctivae are moist without any icterus noted. Dry mucous membranes. Posterior pharynx is normal. Neck is soft without any lymphadenopathy or thyromegaly. No masses are appreciated. Cardiovascular: Tachycardic, regular rhythm, S1-S2 present without murmurs. Lungs: Clear to auscultation bilaterally no wheezes rhonchi or rales are appreciated. Patient takes deep breaths without any discomfort. Abdomen: Soft and nondistended with normal bowel sounds. No guarding or rebound. No masses or organomegaly appreciated. Patient complains of epigastric discomfort with palpation. Extremities: Bilateral lower extremities are without edema. Skin: Well perfused without any obvious rashes. Back: Normal appearance. No tenderness to palpation over the cervical, thoracic or lumbar spine. She has no significant CVA tenderness. Const: Vital Signs, click to edit/add: Vital Signs - 24 hr 04/18/25 14:01 04/18/25 14:36 04/18/25 14:45 Temperature 99.1 F Pulse Rate 101 H 98 Pulse Rate [Pulse Oximeter] 107 H Respiratory Rate 20 Blood Pressure Blood Pressure [Ri ght Upper Arm] 122/71 Pulse Oximetry 96 97 94 Oxygen Delivery Me thod Room Air 04/18/25 15:00 04/18/25 15:01 04/18/25 15:34 Temperature Pulse Rate 102 H 95 93 Pulse Rate [Pulse Oximeter] Respiratory Rate 25 H 18 18 Blood Pressure 101/64 Blood Pressure [Ri ght Upper Arm] Pulse Oximetry 94 97 97 Oxygen Delivery Me thod 04/18/25 15:35 04/18/25 15:45 04/18/25 16:00 Temperature Pulse Rate 96 95 94 Pulse Rate [Pulse Oximeter] Respiratory Rate 19 21 22 Blood Pressure 109/65 Blood Pressure [Ri ght Upper Arm] Pulse Oximetry 95 95 96 Oxygen Delivery Me thod 04/18/25 16:01 04/18/25 16:15 04/18/25 16:30 Temperature Pulse Rate 89 91 87 Pulse Rate [Pulse Oximeter] Respiratory Rate 18 20 31 H Blood Pressure 105/65 Blood Pressure [Ri ght Upper Arm] Pulse Oximetry 97 97 98 Oxygen Delivery Me thod 04/18/25 16:45 04/18/25 17:00 04/18/25 17:01 Temperature Pulse Rate 87 89 85 Pulse Rate [Pulse Oximeter] Respiratory Rate 16 22 18 Blood Pressure Blood Pressure [Ri ght Upper Arm] Pulse Oximetry 98 95 97 Oxygen Delivery Me thod 04/18/25 17:08 Temperature Pulse Rate 85 Pulse Rate [Pulse Oximeter] Respiratory Rate 18 Blood Pressure 99/64 Blood Pressure [Ri ght Upper Arm] Pulse Oximetry 97 Oxygen Delivery Me thod Course Course ED Course: IV established, L of normal saline started. Labs were drawn. EKG, read by me, shows sinus tachycardia with a pulse of 101. CBC shows a hemoglobin of 10.8, hemoglobin was 13.54 days ago. Does not have an elevated white cell count. Platelet count is down to 34,000, was 146 days ago. Sodium is 132, potassium was 2.7. Both down from 4 days ago. Calcium went from 9.9 to 8.3. LFTs are down from 4 days ago with an AST of 48 ALT of 75. CRP is elevated at 13.2, total protein and albumin both lower 5.93 respectively. Both were normal 4 days ago. Patient was given a dose of oral potassium and IV potassium was started. Abdominal CT shows the same stone on the left approximately the same location with mild hydronephrosis. Concern for DIC. Fibrinogen ordered. Vanc and Zosyn started. Discussed with our hospitalist who recommends transfer. [facility] closed for transfers. Dr. Stefan Garcia accepting the patient for transfer. Vital Signs Vital signs: Initial Vital Signs Temperature 99.1 F 04/18/25 14:01 Temperature Source Temporal Artery Scan 04/18/25 14:01 Pulse Rate 107 H 04/18/25 14:01 Respiratory Rate 20 04/18/25 14:01 Blood Pressure 122/71 04/18/25 14:01 Blood Pressure Mean 88 04/18/25 14:01 Blood Pressure Position Supine 04/18/25 14:01 Pulse Oximetry 96 04/18/25 14:01 Oxygen Delivery Method Room Air 04/18/25 14:01 Vital Signs Temperature 99.1 F 04/18/25 14:01 Pulse Rate 107 H 04/18/25 14:01 Respiratory Rate 20 04/18/25 14:01 Blood Pressure 122/71 04/18/25 14:01 Pulse Oximetry 96 04/18/25 14:01 Oxygen Delivery Method Room Air 04/18/25 14:01 Temperature 99.1 F 04/18/25 14:01 Pulse Rate 85 04/18/25 17:08 Respiratory Rate 18 04/18/25 17:08 Blood Pressure 99/64 04/18/25 17:08 Pulse Oximetry 97 04/18/25 17:08 Oxygen Delivery Method Room Air 04/18/25 14:01 Medications Administered Medications: Generic Name Dose Route Start Last Admin Trade Name Freq PRN Reason Stop Dose Admin Potassium Chloride 10 meq in 100 mls @ 100 mls/hr 04/18/25 16:00 04/18/25 17:44 Potassium Chloride IVPB 04/18/25 19:59 100 mls/hr Q90M KARINA Administration Discontinued Medications Generic Name Dose Route Start Last Admin Trade Name Freq PRN Reason Stop Dose Admin Vancomycin/PEG/NADA/Lysine/Water 1.25 gm in 250 mls @ 200 mls/hr 04/18/25 16:04 04/18/25 17:06 Vancomycin 1.25 Gm/250 Ml IVPB 04/18/25 17:18 200 mls/hr ONCE ONE Administration Protocol Piperacillin Sod/Tazobactam 100 mls @ 200 mls/hr 04/18/25 16:04 04/18/25 17:35 Sod 3.375 gm/ Sodium Chloride IVPB 04/18/25 16:05 Infused ONCE ONE Infusion Potassium Chloride 40 meq 04/18/25 15:57 04/18/25 17:09 Potassium Chloride 10 Meq Capsule Er PO 04/18/25 15:58 40 meq ONCE ONE Administration Medical Decision Making MDM Narrative Medical decision making narrative: 49-year-old female with a renal stone, bacteremia and concern of DIC. Patient will be transferred to [facility] for immediate intervention. Lab Data Lab results reviewed: Yes I reviewed the patient's lab results Labs: Lab Results 04/18/25 04/18/25 04/18/25 Range/Units 14:11 14:50 15:43 WBC 7.77 (4.50-11.00) K/uL RBC 3.61 L (4.00-5.20) m/uL Hgb 10.8 L (12.0-16.0) gm/dL Hct 31.6 L (33.0-51.0) % MCV 88 (80-100) fL MCH 30 (26-34) pg MCHC 34 (32-36) gm/dL RDW Coeff of Demarcus 11.6 (11.5-15.5) % Plt Count 34 L* (140-440) K/uL Neut % (Auto) 87.3 H (42.0-72.0) % Lymph % (Auto) 5.4 L (20-44) % [place] % (Auto) 2.4 (0.0-11.0) % Eos % (Auto) 0.0 (0.0-7.0) % Baso % (Auto) 0.1 (0.0-3.0) % Neut # (Auto) 6.80 (1.7-7.0) K/uL Lymph # (Auto) 0.40 L (0.90-2.90) K/uL [place] # (Auto) 0.20 (0.00-0.90) K/UL Eos # (Auto) 0.00 (0.00-0.50) K/uL Baso # (Auto) 0.01 (0.00-0.30) K/uL Abs Immat Gran (auto) 0.37 H (0.00-0.30) K/uL Imm/Tot Granulo (auto) 4.8 % Absolute Retic 0.01 L (0.03-0.08) # Percent Retic 0.3 L (0.5-2.0) % Immature Retic Fraction 6.3 (3.0-15.9) % Retic Hgb Equivalent 22.6 L (29.0-35.0) pg D-Dimer Quant (PE/DVT) 4.38 H (0.00-0.50) ug/ml Sodium 132 L (135-149) mmol/L Potassium 2.7 L* (3.6-5.1) mmol/L Chloride 103 (96-114) mmol/L Carbon Dioxide 23 (20-32) mmol/L Anion Gap 6 L (7-15) mEq/L BUN 15 (5-24) mg/dL Creatinine 0.6 (0.5-1.5) mg/dL Estimated Creat Clear 101.52 Estimated GFR 110 ml/min Glucose 113 (60-115) mg/dL Lactate 1.2 (0.5-1.9) mmol/L Calcium 8.3 L (8.4-10.6) mg/dL Magnesium 1.8 (1.5-2.6) mg/dL Total Bilirubin 1.9 H (0.1-1.5) mg/dL Direct Bilirubin 0.4 (0.0-0.5) mg/dL AST 48 H (12-35) U/L ALT 75 H (4-35) U/L Alkaline Phosphatase 211 H (40-150) U/L Total Creatine Kinase 73 (41-117) U/L Troponin I < 0.01 (0.01-0.04) ng/mL C-Reactive Protein 13.2 H (0.5-1.0) mg/dL Total Protein 5.9 L (6.0-8.3) g/dL Albumin 3.0 L (3.3-5.0) g/dL Lipase 94 (23-300) U/L Procalcitonin 28.00 H (<0.50) ng/mL TSH 1.980 (0.270-4.20) uIU/mL Urine Color (Yellow) Urine Appearance (Clear) Urine pH (5.0-8.5) Ur Specific [place] (1.000-1.030) Urine Protein (Negative) Urine Glucose (UA) (Negative) Urine Ketones (Negative) Urine Blood (Negative) Urine Nitrite (Negative) Urine Bilirubin (Negative) Urine Urobilinogen (0.2-1.0) Ur Leukocyte Esterase (Negative) Urine RBC (0-2) Urine WBC (0-5) Ur Squamous Epith Cells (None-Few) Urine Bacteria (None) Urine HCG, Qual (Negative) SARS-CoV-2 (PCR) Negative SARS-CoV-2 (Negative) Monoscreen Negative (Negative) Influenza Type A (PCR) Negative PCR FLU A (Negative) Influenza Type B (PCR) Negative PCR FLU B (Negative) RSV (PCR) Negative PCR RSV (Negative) 04/18/25 04/18/25 Range/Units 15:50 16:09 WBC (4.50-11.00) K/uL RBC (4.00-5.20) m/uL Hgb (12.0-16.0) gm/dL Hct (33.0-51.0) % MCV (80-100) fL MCH (26-34) pg MCHC (32-36) gm/dL RDW Coeff of Demarcus (11.5-15.5) % Plt Count (140-440) K/uL Neut % (Auto) (42.0-72.0) % Lymph % (Auto) (20-44) % [place] % (Auto) (0.0-11.0) % Eos % (Auto) (0.0-7.0) % Baso % (Auto) (0.0-3.0) % Neut # (Auto) (1.7-7.0) K/uL Lymph # (Auto) (0.90-2.90) K/uL [place] # (Auto) (0.00-0.90) K/UL Eos # (Auto) (0.00-0.50) K/uL Baso # (Auto) (0.00-0.30) K/uL Abs Immat Gran (auto) (0.00-0.30) K/uL Imm/Tot Granulo (auto) % Absolute Retic (0.03-0.08) # Percent Retic (0.5-2.0) % Immature Retic Fraction (3.0-15.9) % Retic Hgb Equivalent (29.0-35.0) pg D-Dimer Quant (PE/DVT) (0.00-0.50) ug/ml Sodium (135-149) mmol/L Potassium (3.6-5.1) mmol/L Chloride (96-114) mmol/L Carbon Dioxide (20-32) mmol/L Anion Gap (7-15) mEq/L BUN (5-24) mg/dL Creatinine (0.5-1.5) mg/dL Estimated Creat Clear Estimated GFR ml/min Glucose (60-115) mg/dL Lactate (0.5-1.9) mmol/L Calcium (8.4-10.6) mg/dL Magnesium (1.5-2.6) mg/dL Total Bilirubin (0.1-1.5) mg/dL Direct Bilirubin (0.0-0.5) mg/dL AST (12-35) U/L ALT (4-35) U/L Alkaline Phosphatase (40-150) U/L Total Creatine Kinase (41-117) U/L Troponin I (0.01-0.04) ng/mL C-Reactive Protein (0.5-1.0) mg/dL Total Protein (6.0-8.3) g/dL Albumin (3.3-5.0) g/dL Lipase (23-300) U/L Procalcitonin (<0.50) ng/mL TSH (0.270-4.20) uIU/mL Urine Color Yellow (Yellow) Urine Appearance Clear (Clear) Urine pH 7.0 (5.0-8.5) Ur Specific [place] 1.010 (1.000-1.030) Urine Protein Negative (Negative) Urine Glucose (UA) Negative (Negative) Urine Ketones Negative (Negative) Urine Blood Trace-intact A (Negative) Urine Nitrite Negative (Negative) Urine Bilirubin Negative (Negative) Urine Urobilinogen 1.0 (0.2-1.0) Ur Leukocyte Esterase Negative (Negative) Urine RBC 0-2 (0-2) Urine WBC 0-2 (0-5) Ur Squamous Epith Cells None (None-Few) Urine Bacteria None (None) Urine HCG, Qual Negative (Negative) SARS-CoV-2 (PCR) (Negative) Monoscreen (Negative) Influenza Type A (PCR) (Negative) Influenza Type B (PCR) (Negative) RSV (PCR) (Negative) Imaging Data Chest x-ray: Attestation: I have reviewed the pertinent imaging results. Radiologist's impression: Technique: PA and lateral views of the chest Findings: There is diffuse central bronchial thickening without dense consolidation, effusion or pneumothorax. The cardiomediastinal silhouette is within normal limits. The bony thorax is grossly intact. Impression: Diffuse interstitial prominence which may represent bronchial thickening versus mild pulmonary vascular congestion. No obvious dense consolidation. CT scan - abdomen: Attestation: I have reviewed the pertinent imaging results. Radiologist's impression: TECHNIQUE: CT abdomen and pelvis without contrast. COMPARISON: None. FINDINGS: Limited evaluation of the intra-abdominal solid organs without IV contrast. Lower chest: Unremarkable. Liver: Normal in size and attenuation. No suspicious masses. Gallbladder and bile ducts: No stones or inflammation. No biliary dilatation. Pancreas: Unremarkable. No mass or inflammation. Spleen: Normal in size. No masses. Adrenal glands: Normal in size. No nodules. Kidneys: 4 millimeter stone in the proximal left ureter with mild left hydronephrosis. No right hydronephrosis. No right renal stones. No additional left renal stones either. GI tract: Unremarkable. Normal in caliber. No sign of mass or inflammation. Normal appendix. Vasculature: Abdominal aorta is normal in caliber. Lymph nodes: No lymphadenopathy. Peritoneum/Abdominal Wall: Unremarkable. No sign of mass or infiltration. No free air or significant free fluid. Pelvis: Unremarkable. No pelvic masses. Bones: Unremarkable for age. IMPRESSION: 1. 4 millimeter stone in the proximal left ureter with proximal mild hydro nephrosis. 2. No additional renal stones. No other acute process. ECG Data Attestation: I personally reviewed and interpreted this ECG as follows: Discharge Plan Discharge Clinical Impression: Bacteremia, Calculus, renal Patient Disposition: Xfer Other Discharge Location: [facility] Condition: Guarded Prescriptions: No Action fluticasone propionate 50 mcg/actuation spray,suspension 1 spray intranasal .prn PRN Rx Instructions: administer into each nostril cephalexin 500 mg capsule 500 mg PO TID 7 Days Qty: 21 0RF Stand Alone Forms: [employer] Info Instructions
--- NOTE | 2025-04-18 14:52 | CRLHL7_ITS ---
For Patients: As a result of the Century Cures Act, medical imaging exams and procedure reports are released immediately into your electronic medical record. You may view this report before your referring provider. If you have questions, please contact your health care provider. INDICATION: RENAL STONE. TECHNIQUE: CT abdomen and pelvis without contrast. COMPARISON: None. FINDINGS: Limited evaluation of the intra-abdominal solid organs without IV contrast. Lower chest: Unremarkable. Liver: Normal in size and attenuation. No suspicious masses. Gallbladder and bile ducts: No stones or inflammation. No biliary dilatation. Pancreas: Unremarkable. No mass or inflammation. Spleen: Normal in size. No masses. Adrenal glands: Normal in size. No nodules. Kidneys: 4 millimeter stone in the proximal left ureter with mild left hydronephrosis. No right hydronephrosis. No right renal stones. No additional left renal stones either. GI tract: Unremarkable. Normal in caliber. No sign of mass or inflammation. Normal appendix. Vasculature: Abdominal aorta is normal in caliber. Lymph nodes: No lymphadenopathy. Peritoneum/Abdominal Wall: Unremarkable. No sign of mass or infiltration. No free air or significant free fluid. Pelvis: Unremarkable. No pelvic masses. Bones: Unremarkable for age. IMPRESSION: 1. 4 millimeter stone in the proximal left ureter with proximal mild hydro nephrosis. 2. No additional renal stones. No other acute process. Please note that all CT scans at this facility use dose modulation, iterative reconstruction, and/or weight-based dosing when appropriate to reduce radiation dose to as low as reasonably achievable. Dictated by Ana Singh MD @ 04/18/2025 3:57:22 PM (Electronically Signed)
[2025-04-18 15:24] LABS: Basophils Absolute Auto 0.01 K/uL (0.00-0.30); Basophils Percent Auto 0.1 % (0.0-3.0); Hematocrit 31.6 % (33.0-51.0); Hemoglobin* 10.8 gm/dL (12.0-16.0); Immature Granulocytes Abs Auto 0.37 K/uL (0.00-0.30); Immature Granulocytes Pct Auto 4.8 %; Lymphocytes Percent Auto 5.4 % (20-44); Mean Corpuscular HGB Conc 34 gm/dL (32-36); Mean Corpuscular Hemoglobin 30 pg (26-34); Mean Corpuscular Volume 88 fL (80-100); Monocytes Percent Auto 2.4 % (0.0-11.0); Neutrophils Percent Auto 87.3 % (42.0-72.0); RDW Coefficient of Variation % 11.6 % (11.5-15.5); Red Blood Count 3.61 m/uL (4.00-5.20); White Blood Count* 7.77 K/uL (4.50-11.00)
--- OUTSIDE RECORDS SUMMARY | 2025-04-18 15:37 | XMS_ITS | Clinical Summary ---
Author Organization [facility] Address [address] [place] [address] Care Team Providers Care Cloth Hauler Name Role Phone Clinic, No Pcp Or [...] on file Legal Sex Female 3:19 PM PILE HEADER Gender Identity Not on file Sexual Orientation Not on file Obstetrics History Last Filed Vital Signs Vital Sign Reading Time Taken Comments Blood Pressure 94/60 12/23/2016 8:39 AM PILE HEADER Pulse 67 12/23/2016 8:39 AM PILE HEADER Temperature 36.8 C (98.2 F) 10/29/2014 1:49 PM PILE HEADER Respiratory Rate 16 09/28/2014 3:26 PM PILE HEADER Oxygen Saturation 97% 12/23/2016 8:39 AM PILE HEADER Inhaled Oxygen Concentration - - Weight 54.7 kg (120 lb 9.6 oz) 12/23/2016 8:39 A M PILE HEADER Height - - Body Mass Index - [...] Procedure Name Priority Date/Time Associated Diagnosis Comments CARTON FILLING MACHINE OPERATOR THIN PREP PAP SCREEN IMAGED Routine 04/18/2021 9:55 AM CDT from Last 3 Months or Most Recently Relevant to Health Maintenance Results * CARTON FILLING MACHINE OPERATOR THIN PREP PAP SCREEN IMAGED (04/18/2021 9:55 AM CDT) Case Report Gynecologic Cytology Report Case: [id number] Authorizing Provider: Carito Machado MD Collected: 04/18/2021 0955 Ordering Location: [facility] Received: 04/21/2021 0936 First Screen: Wendy Morris Specimen: CARTON FILLING MACHINE OPERATOR ThinPrep Vial Screening, Cervical/Vaginal 04/30/2021 1:47 PM CDT [facility] INTERPRETATION/ RESULT NEGATIVE FOR INTRAEPITHELIAL LESION OR MALIGNANCY (NIL) (none) 04/30/2021 1:47 PM CDT [facility] at 1347 CDT SPECIMEN ADEQUACY Satisfactory for evaluation Endocervical component present 04/30/2021 1:47 PM CDT [facility] HPV REQUEST HPV and PAP 04/30/2021 1:47 PM CDT [facility] Date of LMP 03/03/2021 04/30/2021 1:47 PM CDT [facility] Last Pap Date 11/03/2016 04/30/2021 1:47 PM CDT [facility] Last Pap Result NIL 1:47 PM CDT [facility] Additional Information 04/30/2021 1:47 PM CDT [facility] Comment: Interpreted at [facility] - [address], [place] [address] Automated Review Successful 04/30/2021 1:47 PM CDT [facility] Comment:Specimen processed s uccessfully by automated group manager device, ThinPrep Imaging System, [employer] ANCILLARY TESTING CARTON FILLING MACHINE OPERATOR HPV Ordered, Please see separate report 04/30/2021 1:47 PM CDT [facility] Note The pap test is a [...] and malignant lesions. 04/30/2021 1:47 PM CDT [facility] Other (Cervical/Vagina l) 04/18/2021 9:55 AM CDT 04/21/2021 9:36 AM CDT us Carito Machado MD PATHOLOGY/CYTOLOGY Final R esult [facility] [address] [place] [address], from Last 3 Months or Most Recently Relevant to Health Maintenance Insurance [facility] Care Teams Cloth Hauler Relationship Specialty Start Date End Date Clinic, No Pcp Or . PCP - General 09/28/14
[2025-04-18 15:39] LABS: Chloride* 103 mmol/L (96-114); Sodium* 132 mmol/L (135-149)
[2025-04-18 15:42] LABS: Alanine Aminotransferase* 75 U/L (4-35); Alkaline Phosphatase* 211 U/L (40-150); Anion Gap 6 mEq/L (7-15); Aspartate Amino Transferase* 48 U/L (12-35); Bilirubin Direct* 0.4 mg/dL (0.0-0.5); Bilirubin Total* 1.9 mg/dL (0.1-1.5); Blood Urea Nitrogen* 15 mg/dL (5-24); Carbon Dioxide* 23 mmol/L (20-32); Creatinine* 0.6 mg/dL (0.5-1.5); Est. Creatinine Clearance* 101.52; Estimated Glomerular Filt Rate 110 ml/min; Total Protein* 5.9 g/dL (6.0-8.3)
[2025-04-18 15:43] LABS: Calcium* 8.3 mg/dL (8.4-10.6); Creatine Kinase* 73 U/L (41-117); Glucose* 113 mg/dL (60-115); Lipase* 94 U/L (23-300); Magnesium* 1.8 mg/dL (1.5-2.6)
[2025-04-18 15:51] LABS: Potassium* 2.7 mmol/L (3.6-5.1)
[2025-04-18 15:52] LABS: Platelet Count* 34 K/uL (140-440); Slide Review Reflex Yes
[2025-04-18 15:57] LABS: Mono Screen* Negative (Negative)
[2025-04-18 15:58] LABS: C Reactive Protein* 13.2 mg/dL (0.5-1.0); Troponin I* < 0.01 ng/mL (0.01-0.04)
[2025-04-18 16:01] LABS: Lactate* 1.2 mmol/L (0.5-1.9)
[2025-04-18 16:04] LABS: Appearance Urine Clear (Clear); Bilirubin Urine Negative (Negative); Blood Urine Trace-intact (Negative); Color Urine Yellow (Yellow); Glucose Urine Negative (Negative); Ketones Urine Negative (Negative); Leukocyte Esterase Urine Negative (Negative); Nitrite Urine Negative (Negative); Protein Urine Negative (Negative)
[2025-04-18 16:09] LABS: PCR FLU A Negative PCR FLU A (Negative); PCR FLU B Negative PCR FLU B (Negative); PCR RSV Negative PCR RSV (Negative); SARS PCR* Negative SARS-CoV-2 (Negative)
[2025-04-18 16:20] LABS: D Dimer Quantitative* 4.38 ug/ml (0.00-0.50)
--- NOTE | 2025-04-18 16:23 | CRLHL7_ITS ---
For Patients: As a result of the Century Cures Act, medical imaging exams and procedure reports are released immediately into your electronic medical record. You may view this report before your referring provider. If you have questions, please contact your health care provider. INDICATION: Shortness of breath TECHNIQUE: CT chest PE was acquired with 95 cc Isovue 370 IV contrast. COMPARISON: Same day chest radiograph and CT abdomen pelvis FINDINGS: Heart and vasculature: Contrast opacification of the pulmonary arterial tree is adequate. No sign of pulmonary embolism. Heart size is normal. Thoracic aorta normal in caliber. Top-normal main pulmonary artery caliber measuring 3.2 cm. Lungs and pleura: No suspicious nodules or infiltrates. Punctate right middle lobe calcified granuloma. No pleural effusions, pleural thickening, or pneumothorax. Lymph nodes/mediastinum: No mediastinal, hilar, or axillary adenopathy. Chest wall: No masses. Upper abdomen: Hepatic steatosis. Bones: Unremarkable for age. IMPRESSION: 1. No acute pulmonary embolism. 2. Top-normal main pulmonary artery caliber, could suggest mild pulmonary hypertension. 3. Hepatic steatosis. Please note that all CT scans at this facility use dose modulation, iterative reconstruction, and/or weight-based dosing when appropriate to reduce radiation dose to as low as reasonably achievable. Dictated by Nohelia Arceo MD @ 04/18/2025 5:51:50 PM (Electronically Signed)
[2025-04-18 16:32] LABS: Ur HCG Qualitative* Negative (Negative)
[2025-04-18 16:33] LABS: RBC Urine 0-2 (0-2); WBC Urine 0-2 (0-5)
[2025-04-18 16:35] LABS: Immature Reticulocyte Fraction 6.3 % (3.0-15.9); Reticulocyte Hemoglobin Equivi 22.6 pg (29.0-35.0); Reticulocyte Percent 0.3 % (0.5-2.0); Reticulocytes Absolute 0.01 # (0.03-0.08)
[2025-04-18] MEDS: PIPERACILLIN/TAZOBACTAM 3.375 GM in 0.9 % SODIUM CHLORIDE Mini-bag 100 ML IVPB (17:06)
[2025-04-18] MEDS: VANCOMYCIN 1.25 GM/250 ML 1.25 GM/250 ML PIGGYBACK IVPB (17:06)
[2025-04-18] MEDS: POTASSIUM CHLORIDE 10 MEQ CAPSULE ER 40 MEQ PO (17:09)
[2025-04-18] MEDS: POTASSIUM CHLORIDE 10 MEQ/100 ML PIGGYBACK 100 MEQ IVPB (17:44)
[2025-04-18 18:05] LABS: Slide Review Acceptable Review (Acceptable)
[2025-04-18] MEDS: POTASSIUM CHLORIDE 10 MEQ/100 ML PIGGYBACK 75 MEQ IVPB (19:13)
[2025-04-18 19:16] LABS: Fibrinogen* 696 mg/dL (200-450)
== END 2025-04-18 19:31 | disposition other institution (70) ==
PROVIDERS: Family Medicine; Emergency Provider Student in an Organized Health Care Education/Training Program; PCP Registered Nurse
DX: N20.0 Calculus of kidney (principal); R78.81 Bacteremia
CPT/HCPCS: 36415; 71046; 71275; 74176; 80048; 80076; 81001; 81025; 82550; 83605; 83690; 83735; 84145; 84443; 84484; 85025; 85045; 85379; 85384; 86140; 86308; 87040; 87631; 87800; 93005; 94761; 96365; 96366; 99285; A9270; J2543; J3372; J3480; Q9967

== ENCOUNTER 2025-04-18 19:09 | Outpatient (CLI) | payer SELFPAY ==
--- OUTSIDE RECORDS SUMMARY | 2025-04-18 20:30 | XMS_ITS | Encounter Summary ---
Author Organization [facility] Address [address] [place] [id number] Care Team Providers Care Childcare Teacher Name Role Phone No Ref-Primary, Physician Primary Care Provider Reason for Visit * Auth/Cert (Routine) Specialty Diagnoses / Procedures Referred By Que art Referred To Contact Med Surg Diagnoses Difficulty voiding Sepsis secondary to UTI (H) Procedures IL CYSTOSCOPY,INSERT URETERAL STENT IL UROGRAPHY, RETROGRADE W/WO KUB Cystoscopy, retrogrades, insert stent ureter(s), combined Santos Rodriguez MD [address] [place] [address] Phone: tel: fax: [facility] [address] [facility] [address] [place] [address] Phone: tel: fax: Referral ID Status Reason Start Date Expiration Date Visits Re quested Visits Authorized [id number] 1 1 Encounter Details Date Type Department Care Team (Late st Contact Info) Description 04/18/2025 8:30 PM CDT - Present Hospital Encounter [facility] [id number] [facility] [address] [place] [address] Tahira Castano MD [address] [id number] Santos Rodriguez MD [address] [place] [address] Social History Tobacco Use Types Packs/Day Years Used Date Smoking Tobacco: Never Smokeless Tobacco: Never Tobacco Cessation:Counseling Given: Not Answered Food Insecurity Answer Date Recorded Within the past 12 months, d id you worry that your food would run out before you got money to buy more? No 04/19/2025 Within the past 12 months, d id the food you bought just not last and you didn t have money to get more? No 04/19/2025 Housing Stability Answer Date Recorded Do you have housing? (George hanna is defined as stable permanent housing and does not include staying outside in a car, in a tent, in an abandoned building, in an overnight fpc, or couch-surfing.) Yes 04/19/2025 Are you worried about losing your housing? No 04/19/2025 Financial Resource Strain Answer Date R ecorded Within the past 12 months, h ave you or your family members you live with been unable to get utilities (heat, electricity) when it was really needed? No 04/19/2025 Transportation Needs Answer Date Record ed Within the past 12 months, h as lack of transportation kept you from medical appointments, getting your medicines, non-medical meetings or appointments, work, or from getting things that you need? No 04/19/2025 Interpersonal Safety Answer Date Record ed Do you feel physically and e motionally safe where you currently live? Yes 04/18/2025 Within the past 12 months, h ave you been hit, slapped, kicked or otherwise physically hurt by someone? No 04/18/2025 Within the past 12 months, h ave you been humiliated or emotionally abused in other ways by your partner or ex-partner? No 04/18/2025 Comments Unknown Sex and Gender Information Value Date Recorded Sex Assigned at Not on file Legal Sex Female 4:58 PM CDT Gender Identity Not on file Sexual Orientation Not on file documented as of this encounter Last Filed Vital Signs Vital Sign Reading Time Taken Comments Blood Pressure 105/59 04/20/2025 12:06 AM CDT Pulse 76 04/20/2025 12:06 AM CDT Temperature 36.8 C (98.2 F) 04/20/2025 12:06 AM CDT Respiratory Rate 16 04/20/2025 12:0 6 AM CDT Oxygen Saturation 96% 04/20/2025 12: 06 AM CDT Inhaled Oxygen Concentration - - Weight 57.1 kg (125 lb 14.1 oz) 025 11:54 PM CDT Height 152 cm (4' 11.84) 04/18/2025 9:22 PM CDT Body Mass Index 24.71 04/18/2025 9:22 PM CDT documented in this encounter Progress Notes * Shakira Wade PA-C - 04/19/2025 10:35 AM CDT [facility] Progress Note Entirety of her visit is conducted with the aid of a video [employer] hook loader. Assessment and Plan: Assessment: POD 1 Cystourethroscopy with left retrograde pyelography, placement of left ureteral stent, intraoperative interpretation of fluoroscopic imaging. Sepsis secondary to UTI (H) Ureteral stone Plan: -Continue with indwelling ureteral stent. -Patient will need definitive stone management in several weeks after treatment of infection. This will include cystoscopy, left-sided ureteroscopy laser lithotripsy and basketing, and left ureteral stent exchange. -Have again requested for outside CT images to be pushed to PACS for her upcoming procedure. Have also asked for culture information from outside. - Continue with antibiotics. Would recommend total course of 10 to 14 days. -Leukocytosis has resolved. Platelets slowly improving. - Will add on Pyridium 100 mg 3 times daily, as needed, for dysuria. - Patient is endorsing some vaginal itching. Discussed that this could be due to her recent surgical intervention, or may be developing vaginal yeast infection secondary to antibiotics. Will monitor today. If persistence, would consider treating with 1 dose of fluconazole 150 mg tomorrow for possible vaginal candidiasis. - Will continue following. Shakira Wade PA-C [facility] [phone] Interval History: Doing okay. Having quite a bit of udak-dnx-tathizk when urinating. Also endorses hematuria. Denies any fevers or chills overnight, but endorses quite a few dreams, diaphoresis, and sleeping poorly.Tmax 99. No tachycardia. Blood pressure remains soft. On IV Zosyn. Per report, outside cultures show E. coli. Still do not have images from outside hospital. WBC 8.6 (11.4). Hemoglobin 9.7. [id number]. Creatinine 0.48 EGFR greater than 90. Does endorse some vaginal itching. Review of Systems: The 5 point Review of Systems is negative other than noted in the HPI Medications: Current Facility-Administered Medications Medication Dose Route Frequency Provider Last Rate Last Admin acetaminophen (TYLENOL) tablet 650 mg 650 mg Oral Q4H PRN Aviles, Trisha Terry PA-C Or acetaminophen (TYLENOL) Suppository 650 mg 650 mg Rectal Q4H PRN Aviles, Trisha Terry PA-C HYDROmorphone (DILAUDID) injection 0.2 mg 0.2 mg Intravenous Q2H PRN Aviles, Trisha Terry PA-C HYDROmorphone (DILAUDID) injection 0.4 mg 0.4 mg Intravenous Q2H PRN Aviles, Trisha Terry PA-C 0.4 mg at 04/19/25 0008 lactated ringers infusion Intravenous Continuous Aviles, Trisha Terry PA-C Paused at 04/19/25 0955 naloxone (NARCAN) injection 0.2 mg 0.2 mg Intravenous Q2 Min PRN Santos Rodriguez MD Or naloxone (NARCAN) injection 0.4 mg 0.4 mg Intravenous Q2 Min PRN Santos Rodriguez MD Or naloxone (NARCAN) injection 0.2 mg 0.2 mg Intramuscular Q2 Min PRN Santos Rodriguez MD Or naloxone (NARCAN) injection 0.4 mg 0.4 mg Intramuscular Q2 Min PRN Santos Rodriguez MD ondansetron (ZOFRAN ODT) ODT tab 4 mg 4 mg Oral Q6H PRN Aviles, Trisha Terry PA-C Or ondansetron (ZOFRAN) injection 4 mg 4 mg Intravenous Q6H PRN Aviles, Trisha Terry PA-C oxyCODONE (ROXICODONE) tablet 5 mg 5 mg Oral Q4H PRN Aviles, Trisha Terry PA-C oxyCODONE IR (ROXICODONE) half-tab 2.5 mg 2.5 mg Oral Q4H PRN Aviles, Trisha Terry PA-C phenazopyridine (PYRIDIUM) tablet 100 mg 100 mg Oral TID PRN Shakira Wade PA-C piperacillin-tazobactam (ZOSYN) 3.375 g vial to attach to NS 100 mL bag 3.375 g Intravenous Q6H Aviles, Trisha Terry PA-C 3.375 g at 04/19/25 0952 prochlorperazine (COMPAZINE) injection 10 mg 10 mg Intravenous Q6H PRN Aviles, Trisha Terry PA-C Or prochlorperazine (COMPAZINE) tablet 10 mg 10 mg Oral Q6H PRN Aviles, rTisha Terry PA-C senna-docusate (SENOKOT-S/PERICOLACE) 8.6-50 MG per tablet 1 tablet 1 tablet Oral BID PRN Aviles, Trisha Terry PA-C Or senna-docusate (SENOKOT-S/PERICOLACE) 8.6-50 MG per tablet 2 tablet 2 tablet Oral BID PRN Aviles, Trisha Terry PA-C senna-docusate (SENOKOT-S/PERICOLACE) 8.6-50 MG per tablet 1 tablet 1 tablet Oral BID Trisha Aviles PA-C 1 tablet at 04/19/25 0953 Or senna-docusate (SENOKOT-S/PERICOLACE) 8.6-50 MG per tablet 2 tablet 2 tablet Oral BID Stefan, Trisha Terry PA-C Physical Exam: Vitals were reviewed Patient Vitals for the past 8 hrs: BP Temp Temp src Pulse Resp SpO2 04/19/25 1015 111/67 97.6 ??F (36.4 ??C) Oral 75 20 98 % 04/19/25 0954 -- -- -- -- -- 96 % 04/19/25 0806 99/60 97.8 ??F (36.6 ??C) Oral 64 18 97 % 04/19/25 0755 -- -- -- -- -- 98 % 04/19/25 0558 99/58 98.1 ??F (36.7 ??C) Oral 70 18 95 % 04/19/25 0402 101/58 98.4 ??F (36.9 ??C) Oral 73 16 96 % GEN: NAD, lying in bed EYES: EOMI MOUTH: MMM NECK: Supple RESP: Unlabored breathing NEURO: AAO URO: Urinating on own with hematuria and dysuria Data: No results found for: NTBNPI, NTBNP Lab Results Component Value Date WBC 8.6 04/19/2025 WBC 11.4 (H) 04/18/2025 WBC 10.6 04/18/2025 HGB 9.7 (L) 04/19/2025 HGB 10.2 (L) 04/18/2025 HGB 10.1 (L) 04/18/2025 HCT 28.4 (L) 04/19/2025 HCT 30.1 (L) 04/18/2025 HCT 29.4 (L) 04/18/2025 MCV 88 04/19/2025 MCV 88 04/18/2025 MCV 88 04/18/2025 PLT 54 (L) 04/19/2025 PLT 42 (LL) 04/18/2025 PLT 39 (LL) 04/18/2025 Lab Results Component Value Date INR 0.95 04/18/2025 INR 1.01 04/18/2025 Cosigned by Rigoberto Cody MD at 04/19/2025 3:18 PM CDT Associated attestation - Rigoberto Cody MD - 04/19/2025 3:18 PM CDT Physician Attestation I saw and evaluated Ivett Alexander as part of a shared WIRELINE OPERATOR/PA visit. I personally reviewed the vital signs, medications, labs, and imaging. I personally provided a substantive portion of care for this patient and I approve the care plan aswritten by the GRETCHEN. I was involved with Medical Decision Making including: Please see A&P for additional details of medical decision making. 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 We had a long ranging discussion about ureteroscopic management as well as medical stone prevention. Will plan to do ureteroscopy in the next few weeks after treatment of infection. Urine culture still pending Over 45 minutes spent today on care of this patient including over 30 minutes with hook loader, review of prior records, documentation, coordination of care Rigoberto Cody MD Date of Service (when I saw the patient): 04/19/25 * Gagandeep Gates MD - 04/19/2025 8:10 AM CDT [facility] Medicine Progress Note - Hospitalist Service Date of Admission: 04/18/2025 Primary Care Physician Physician No Ref-Primary CONSULTANTS: urology Assessment & Plan Ivett Alexander is a 49 year old female with no significant PMH who presents as a direct admit from [place] ED due to concern for infected kidney stone with e.coli bacteremia. Discussed with ED physician from [place], pt presented 4 days ago with episode of syncope, chills and c/o urinary incontinence. Work up ultimately revealed 4 mm left UVJ stone with mild hydronephrosis. UA equivocal so started on Keflex. Blox cx taken. Clinically stable at that time with normal WBC 6.2 and normal Cr 0.7. Did have elevated LFTs 340's250's TB 2.5. Discharged home with Keflex. (Unfortunately no records avail on CareEverywhere from [place]) but per report was an e coli. Since discharge, pt has been c/o intermittent chills and rigors with nausea and vomiting. Denies any urinary or GI bleeding. ON day of admission, [facility] lab received +Blood culture for e.coli and her urine cx also grew out e.coli so she was called to go to a facility that has urology but went back to [facility] again. She was sent to [facility] for ongoing urology support. Per ED MD, pt reports nausea, vomiting and abd pain but not flank pain. No fever. VSS with BP in the 120's after 1L fluid in the 105's. And Afebrile. CBC remains normal at 7.7 along with normal Cr Hgb however is down 3 g and Plt at 34K from 146K Procal up but LA normal. Repeat CT shows same 4mm left ureteral stone with mild hydro, no evidence of bleed #Sepsis due to infected ureteral stone with e.coli UTI #E.Coli bacteremia - patient has not had hx of kidney stone in the past, states she has been incontinent of urine since 4 days ago with c/o chills and rigors. - Fortunately vitals are stable and she is not toxic appearing - Repeat labs CBC/BMP/LFT/LA/Bld CX/HCG - was placed on Zosyn for now, Vanco and Zosyn given in ED (will need to get sensitivities from [place]) , I called [facility] micro lab 04/19. Transition to oral antibiotics once she is doing better and sentitivies are known. Will need 10-14 days of antibiotics. Is sensitive to ampicillin, intermediate to cipro, sensitive to omnicef. Will change zosyn to rocephin and Plan omnicef when able.. - IVF to continue - Pain control -on 04/18 had cystourethroscopy with left pyelography and left ureteral stent placement with purulent discharge -will need definitive stone management in 2-3 weeks -wbc down ton 8.6 from 12.8. #Reported acute anemia and thrombocytopenia concern for possible DIC - no c/o acute blood loss, had episode of hematuria a few months ago apparently but resolved with medications - Reported Hgb 13 four days ago now 10.3, Plt 146-->34K at OSH, stable here at 54 on repeat - Concern for possible DIC given acute thrombocytopenia but no signs of DIC with normal INR, fibri,nogin 681 - No e/o bleeding at this time - Repeat stat labs as above, Check d-dimer, PT/aPTT/Fibrinogen and peripheral smear pending still #Reported elevated liver enzymes - likely reactive due to acute infection - LFTs elevated in the 340's/250 with TBili of 2.5 - LFTs trending down Discussed plan of care with [facility] microlab for culture sensitivities, nursing, social work/case management Diet: Advance Diet as Tolerated: Clear Liquid Diet; Regular Diet Adult DVT Prophylaxis: Pneumatic Compression Devices Hines Catheter: Not present Lines: None Cardiac Monitoring: None RESTRAINTS: not indicated Code Status: Full Code This document was created using voice recognition technology. Please excuse any typographical errors that may have occurred. Please call with any questions. Clinically Significant Risk Factors Present on Admission # Hypoalbuminemia: Lowest albumin = 2.7 g/dL at 04/19/2025 7:12 AM, will monitor as appropriate # Thrombocytopenia: Lowest platelets = 39 in last 2 days, will monitor for bleeding # Anemia: based on hgb <11 Disposition Plan Expected Discharge Date: 04/20/2025 Barrier to discharge: sepsis Medically Ready for Discharge: Anticipated Tomorrow if looking better Gagandeep Gates MD Hospitalist Service [facility] Securely message with [employer] (more info) Text page via [facility] Paging/Directory Interval History Patient new to me. Still feeling quite ill with ongoing malaise, bodyaches, feeling chills/sweats, and still with some flank pain. Also complains of a headache ROS: A comprehensive review of systems was negative except for items noted in the HPI. Patient currently denies any fever nausea, vomiting, diarrhea, shortness of breath, or chest pain. Physical Exam Vital Signs: Temp: 97.8 ??F (36.6 ??C) Temp src: Oral BP: 99/60 Pulse: 64 Resp: 18 SpO2: 97 % O2 Device: None (Room air) Oxygen Delivery: 6 LPM Weight: 125 lbs 14.12 oz General appearance: Patient is alert and oriented x3, no apparent distress but appears ill, pleasant and conversing normally, speaking in full sentences, appears stated age, lying in bed HEENT: Mucous membranes are moist RESPIRATORY: Clear to auscultation bilateral, good air movement, on room air CARDIOVASCULAR: Regular rate and rhythm, normal S1/S2, no murmurs, rubs, or gallops present, peripheral pulses intact GASTROINTESTINAL: Non-distended, non-tender, soft, bowel sounds present throughout, mild flank tenderness NEUROLOGIC: Cranial nerves II-XII intact, without any focal deficits, strength 5/5 throughout EXTREMITIES: Moves all extremities, no clubbing, cyanosis, nor edema : Hines not present Data I have personally reviewed the following data over the past 24 hrs: 8.6 \ 9.7 (L) / 54 (L) 136 107 10.0 / 151 (H) 4.3 22 0.48 (L) \ ALT: 65 (H) AST: 32 AP: 107 TBILI: 0.8 ALB: 2.7 (L) TOT PROTEIN: 5.4 (L) LIPASE: N/A Procal: N/A CRP: N/A Lactic Acid: 0.9 INR: 0.95 PTT: 34 D-dimer: N/A Fibrinogen: 681 (H) Ferritin: N/A % Retic: 0.4 (L) LDH: 224 Imaging: Results for orders placed or performed during the hospital encounter of 04/18/25 XR Surgery YOSELIN L/T 5 Min Fluoro Narrative This exam was marked as non-reportable because it will not be read by a radiologist or a [facility] non-radiologist provider. Procedures: cystoscopy with stenting 04/18 I have personally have reviewed the patient's most up to date radiologic exams, labs, orders, and medications myself documented in this encounter H&P Notes * Trisha Aviles PA-C - 04/18/2025 9:25 PM CDT [facility] History and Physical - Hospitalist Service Date of Admission: 04/18/2025 Assessment & Plan Ivett Alexander is a 49 year old female with no significant PMH who presents as a direct admit from [place] ED due to concern for infected kidney stone with e.coli bacteremia. Discussed with ED physician from [place], pt presented 4 days ago with episode of syncope, chills and c/o urinary incontinence. Work up ultimately revealed 4 mm left UVJ stone with mild hydronephrosis. UA equivocal so started on Keflex. Blox cx taken. Clinically stable at that time with normal WBC 6.2 and normal Cr 0.7. Did have elevated LFTs 340's250's TB 2.5. Discharged home with Keflex. (Unfortunately no records avail on CareEverywhere from [place]) Since discharge, pt has been c/o intermittent chills and rigors with nausea and vomiting. Denies any urinary or GI bleeding. Today, their lab received +Blood culture for e.coli and her urine cx also grew out e.coli so she was called to go to a facility that has urology but went back to [place] again. Per ED MD, pt reports nausea, vomiting and abd pain but not flank pain. No fever. VSS with BP in the 120's after 1L fluid in the 105's. And Afebrile. CBC remains normal at 7.7 along with normal Cr Hgb however is down 3 g and Plt at 34K from 146K Procal up but LA normal. Repeat CT shows same 4mm left ureteral stone with mild hydro, no evidence of bleed D/w Dr. Elisa Castano Urology and concern for interval development of DIC from infected stone. Will need to go straight to OR from [place]. Will see and admit when arrives to PACU. #Sepsis due to infected ureteral stone with e.coli UTI #E.Coli bacteremia - pt has not had hx of kidney stone in the past - states she has been incontinent of urine since 4 days ago with c/o chills and rigors. - Fortunately vitals are stable and she is not toxic appearing - Repeat labs CBC/BMP/LFT/LA/Bld CX/HCG - Cont with Zosyn for now, Vanco and Zosyn given in ED (will need to get sensitivities from [place]) - IVF - NPO - Pain control #Reported acute anemia and thrombocytopenia concern for possible DIC - no c/o acute blood loss, had episode of hematuria a few months ago apparently but resolved with medications - Reported Hgb 13 four days ago now 10.3, Plt 146-->34K at OSH - Concern for possible DIC given acute thrombocytopenia? - No e/o bleeding at this time - Repeat stat labs as above, Check d-dimer, PT/aPTT/Fibrinogen and peripheral smear #Reported elevated liver enzymes - likely reactive due to acute infection - LFTs elevated in the 340's/250 with TBili of 2.5 - Labs today reported to be 48/75 and T Bili of 1.9 - Follow labs Hospitalist Addendum: INR/PT/PTT normal and fibrinogen elevated so less likely to be DIC LDH, blood cx, peripheral smear pending Will repeat a set of labs again at midnight and AM to trend values D/w Dr. Castano, purulent discharge after stent placed Cont Zosyn for now Ok to eat Will need to get sensitivities from [place] D/w Dr. Hu Diet: NPO DVT Prophylaxis: SCDs Hines Catheter: Not present Lines: None Cardiac Monitoring: ACTIVE order. Indication: Procedural area Code Status: FULL Clinically Significant Risk Factors Present on Admission Disposition Plan Medically Ready for Discharge: Anticipated in 2-4 Days The patient's care was discussed with the patient via hook loader Trisha Aviles PA-C Hospitalist Service [facility] Securely message with [employer] (more info) Text page via [employer] Paging/Directory Chief Complaint Abd/flank pain, rigors, chills History is obtained from the patient History of Present Illness Ivett Alexander is a 49 year old female with no significant PMH who presents as a direct admit from [place] ED due to concern for infected kidney stone with e.coli bacteremia. Discussed with ED physician from [place], pt presented 4 days ago with episode of syncope, chills and c/o urinary incontinence. Work up ultimately revealed 4 mm left UVJ stone with mild hydronephrosis. UA equivocal so started on Keflex. Blox cx taken. Clinically stable at that time with normal WBC 6.2 and normal Cr 0.7. Did have elevated LFTs 340's250's TB 2.5. Discharged home with Keflex. (Unfortunately no records avail on CareEverywhere from [place]) Today, their lab received +Blood culture for e.coli and her urine cx also grew out e.coli so she was called to go to a facility that has urology but went back to [place] again. Per ED MD, pt reports nausea, vomiting and abd pain but not flank pain. No fever. VSS with BP in the 120's after 1L fluid in the 105's. And Afebrile. CBC remains normal at 7.7 along with normal Cr Hgb however is down 3 g and Plt at 34K from 146K Procal up but LA normal. Repeat CT shows same 4mm left ureteral stone with mild hydro, no evidence of bleed Past Medical History Gestational DM Past Surgical History Nasal surgery [place] a [place] Left oophorectomy Prior to Admission Medications None Keflex from 4 days ago Physical Exam Vital Signs: Temp: 97.7 ??F (36.5 ??C) Temp src: Core BP: 104/74 Pulse: 82 Resp: 20 SpO2: 98 % O2 Device: None (Room air) Weight: 0 lbs 0 oz GENERAL: Comfortable.Alert oriented, ill appearing but non toxic PSYCH: pleasant, oriented, No acute distress. HEENT: PERRLA. Normal conjunctiva, normal hearing, nasal mucosa and Oropharynx are normal. NECK: Supple, no neck vein distention, adenopathy or bruits, normal thyroid. HEART: Normal S1, S2 with no murmur, no pericardial rub, gallops or S3 or S4. LUNGS: Clear to auscultation, normal Respiratory effort. No wheezing, rales or ronchi. ABDOMEN: Soft, no hepatosplenomegaly, no significant abd pain, no peritoneal sxs EXTREMITIES: No pedal edema, +2 pulses bilateral and equal. SKIN: Dry to touch, No rash, wound or ulcerations. NEUROLOGIC: CN 2-12 intact, BL 5/5 symmetric upper and lower extremity strength, sensation is intact with no focal deficits. Medical Decision Making 75 MINUTES SPENT BY ME on the date of service doing chart review, history, exam, documentation & further activities per the note. Data I have personally reviewed the following data over the past 24 hrs: 12.8 (H) \ 10.3 (L) / 41 (LL) 137 107 10.2 / 106 (H) 4.2 21 (L) 0.60 \ Imaging results reviewed over the past 24 hrs: No results found for this or any previous visit (from the past 24 hours). Cosigned by Jourdan Hu MD at 04/18/2025 10:57 PM CDT Associated attestation - Jourdan Hu MD - 04/18/2025 10:57 PM CDT Physician Attestation I have reviewed and discussed with the advanced practice provider their history, physical and plan for Ivett Alexander. I did not participate in a shared visit; this is an advanced practice provider only visit. Jourdan Hu MD Date of Service (when I saw the patient): I did not personally see this patient today. documented in this encounter Consult Notes * Tahira Castano MD - 04/18/2025 8:31 PM CDT Urology Consult Name: Ivett Alexander Date of : 1975 Chief Complaint: Nausea and vomiting History is obtained from the patient and chart review History of Present Illness: Ivett Alexander is a 49 year old female with a recently diagnosed left distal ureteral stone (4mm) andpossible UTI who was discharged from the ER in [place] a few days ago with Keflex. Today she wascontacted that the results of her blood and urine cultures returned positive (E. Coli). In the ER at [place] she was nauseous and vomiting. She was also noted to have acute anemia and thrombocytopenia- a change from her labs a few days prior. CT was performed at the outside hospital which revealed persistence of her left ureteral stone and no other abnormalities. Given concern for bacteremia and potentially developing DIC, she was transferred to [facility] for emergent left ureteral stent placement. Past Medical History: No past medical history on file. Past Surgical History: No past surgical history on file. Social History: Social History Tobacco Use Smoking status: Not on file Smokeless tobacco: Not on file Substance Use Topics Alcohol use: Not on file Family History: No family history on file. Allergies: Not on File Medications: No current facility-administered medications for this encounter. Review of Systems: ROS: 10 point ROS neg other than the symptoms noted above in the HPI Physical Exam: VS: T: Data Unavailable HR: Data Unavailable BP: Data Unavailable RR: Data Unavailable GEN: AOx3. NAD. CV: RRR LUNGS: Non-labored breathing. BACK: No midline or CVA tenderness. ABD: Soft. NT. ND. No rebound or guarding. No masses. EXT: Warm, well perfused. No edema. SKIN: Warm. Dry. No rashes. NEURO: CN grossly intact. Data: CT scan of the abdomen: 4 mm left distal ureteral stone. Impression and Plan: Impression: Ivett Alexander is a 49 year old female with a known 4mm left ureteral stone, bacteremia, and possibledeveloping DIC. Efforts have been made to push her outside images into our PACS system, however this has been unsuccessful. Given her clinical status I do not believe it is haskins to delay ureteral stent placement forimage troubleshooting. I will perform a fence erector supervisor film and retrograde pyelogram during the case to confirm the presence of obstruction on this side. Plan: - To OR emergently for cystoscopy, left retrograde pyelogram, and left ureteral stent placement - Continue antibiotics - Plan for outpatient stone management in 2-3 weeks once her infection has been adequately treated. Tahira Castano MD Reconstructive Urology [facility] documented in this encounter Miscellaneous Notes * Plan of Care - Sherrill Tracy RN - 04/19/2025 10:50 PM CDT Shift [id number] VSS. A&Ox4. On RA. On IV ceftriaxone. PRN PO ty given for ab pain. Urination painful and pink-red. K and Mg, AM rechecks. Cont LR @125mL/hr. L PIV infusing. 2 R PIVs S/L. Reg diet. SBA, up to bathroom. Urology following. Plan to continue ABX. Goal Outcome Evaluation: Plan of Care Reviewed With: patient Overall Patient Progress: improvingOverall Patient Progress: improving Outcome Evaluation: On IV ceftriaxone. PRN PO ty given for ab pain. Urination painful and pink-red.K and Mg, AM rechecks. Cont LR @125mL/hr. Urology following. Plan to continue ABX. Problem: Adult Inpatient Plan of Care Goal: Plan of Care Review Description: The Plan of Care Review/Shift note should be completed every shift. The Outcome Evaluation is a brief statement about your assessment that the patient is improving, declining, or no change. This information will be displayed automatically on your shift note. Outcome: Progressing Flowsheets (Taken 04/19/2025 2250) Outcome Evaluation: On IV ceftriaxone. PRN PO ty given for ab pain. Urination painful and pink-red.K and Mg, AM rechecks. Cont LR @125mL/hr. Urology following. Plan to continue ABX. Plan of Care Reviewed With: patient Overall Patient Progress: improving Goal: Patient-Specific Goal (Individualized) Description: You can add care plan individualizations to a care plan. Examples of Individualizationmight be: Parent requests to be called daily at 9am for status, I have a hard time hearing out of my right ear, or Do not touch me to wake me up as it startles me. Outcome: Progressing Goal: Absence of Hospital-Acquired Illness or Injury Outcome: Progressing Intervention: Identify and Manage Fall Risk Recent Flowsheet Documentation Taken 04/19/2025 2240 by Sherrill Tracy RN Safety Promotion/Fall Prevention: safety round/check completed Taken 04/19/2025 1910 by Sherrill Tracy RN Safety Promotion/Fall Prevention: safety round/check completed Taken 04/19/2025 1810 by Sherrill Tracy RN Safety Promotion/Fall Prevention: safety round/check completed Taken 04/19/2025 1750 by Sherrill Tracy RN Safety Promotion/Fall Prevention: activity supervised assistive device/personal items within reach clutter free environment maintained safety round/check completed Taken 04/19/2025 1525 by Sherrill Tracy RN Safety Promotion/Fall Prevention: safety round/check completed Intervention: Prevent Skin Injury Recent Flowsheet Documentation Taken 04/19/2025 1750 by Sherrill Tracy RN Body Position: position changed independently Intervention: Prevent and Manage VTE (Venous Thromboembolism) Risk Recent Flowsheet Documentation Taken 04/19/2025 1750 by Sherrill Tracy RN VTE Prevention/Management: SCDs on (sequential compression devices) Intervention: Prevent Infection Recent Flowsheet Documentation Taken 04/19/2025 1750 by Sherrill Tracy RN Infection Prevention: cohorting utilized environmental surveillance performed equipment surfaces disinfected hand hygiene promoted personal protective equipment utilized rest/sleep promoted single patient room provided Goal: Optimal Comfort and Wellbeing Outcome: Progressing Intervention: Monitor Pain and Promote Comfort Recent Flowsheet Documentation Taken 04/19/2025 2240 by Sherrill Tracy lead oracle developer Interventions: rest Taken 04/19/2025 1906 by Sherrill Tracy RNlead oracle developer Interventions: medication (see MAR) Taken 04/19/2025 1750 by Sherrill Tracy RNlead oracle developer Interventions: rest Goal: Readiness for Transition of Care Outcome: Progressing Intervention: Mutually Develop Transition Plan Recent Flowsheet Documentation Taken 04/19/2025 1700 by Sherrill Tracy RN Equipment Currently Used at Home: none * Plan of Care - Ammy Zaragoza RN - 04/19/2025 2:00 PM CDT Pt A&Ox4.SBA. c/o minimal abd pain and pain with urination - prn pyridium available. Urine pink. On LR IVF 125ml/hr. ABX changed to rocephin. Lung sounds clear. Regular diet. Poor appeitite. K and Mag protocols. Urology following. Goal Outcome Evaluation: Plan of Care Reviewed With: patient Overall Patient Progress: improvingOverall Patient Progress: improving Outcome Evaluation: poor appetite. abd pain. urology following. on ABX Problem: Adult Inpatient Plan of Care Goal: Plan of Care Review Description: The Plan of Care Review/Shift note should be completed every shift. The Outcome Evaluation is a brief statement about your assessment that the patient is improving, declining, or no change. This information will be displayed automatically on your shift note. Outcome: Progressing Flowsheets (Taken 04/19/2025 1329) Outcome Evaluation: poor appetite. abd pain. urology following. on ABX Plan of Care Reviewed With: patient Overall Patient Progress: improving Goal: Patient-Specific Goal (Individualized) Description: You can add care plan individualizations to a care plan. Examples of Individualizationmight be: Parent requests to be called daily at 9am for status, I have a hard time hearing out of my right ear, or Do not touch me to wake me up as it startles me. Outcome: Progressing Goal: Absence of Hospital-Acquired Illness or Injury Outcome: Progressing Intervention: Identify and Manage Fall Risk Recent Flowsheet Documentation Taken 04/19/2025 1100 by Zaragoza, Ammy, RN Safety Promotion/Fall Prevention: safety round/check completed Taken 04/19/2025 0730 by Ammy Zaragoza RN Safety Promotion/Fall Prevention: safety round/check completed Intervention: Prevent Skin Injury Recent Flowsheet Documentation Taken 04/19/2025 1100 by Ammy Zaragoza RN Body Position: position changed independently Intervention: Prevent and Manage VTE (Venous Thromboembolism) Risk Recent Flowsheet Documentation Taken 04/19/2025 1100 by Ammy Zaragoza RN VTE Prevention/Management: SCDs on (sequential compression devices) Taken 04/19/2025 0730 by Ammy Zaragoza RN VTE Prevention/Management: SCDs on (sequential compression devices) Goal: Optimal Comfort and Wellbeing Outcome: Progressing Goal: Readiness for Transition of Care Outcome: Progressing * Pharmacy-Admission Medication History - Anabelle Melchor - 04/19/2025 8:58 AM CDT Mailer Apprentice Admission Medication History Admission medication history is complete. The information provided in this note is only as accurateas the sources available at the time of the update. Information Source(s): Patient via in-person Pertinent Information: NA Changes made to DRY DRUG WORKER medication list: Added: None Deleted: None Changed: None Allergies reviewed with patient and updates made in EHR: yes Medication History Completed By: Anabelle Melchor 04/19/2025 8:58 AM No outpatient medications have been marked as taking for the 04/18/25 encounter (Hospital Encounter). Cosigned by Jennifer Hernandez RPH at 04/19/2025 9:33 AM CDT Associated attestation - Jennifer Hernandez RPH - 04/19/2025 9:33 AM CDT Medication history and patient interview completed by pharmacy technician inpatient/student or pre-admitting RN. Reviewed by pharmacist, including [employer] dispense records, [facility] Care Everywhere, and chart review. Jennifer Hernandez, Pharm.D. * Plan of Care - Rosa Kraus RN - 04/19/2025 4:31 AM CDT VS stable. Complained of pain in head, urethra, and all over body and pain meds given. Complained of pain with urination and blood in urine. Goal Outcome Evaluation: Plan of Care Reviewed With: patient Overall Patient Progress: no changeOverall Patient Progress: no change Outcome Evaluation: VS stable. Problem: Adult Inpatient Plan of Care Goal: Plan of Care Review Description: The Plan of Care Review/Shift note should be completed every shift. The Outcome Evaluation is a brief statement about your assessment that the patient is improving, declining, or no change. This information will be displayed automatically on your shift note. Outcome: Progressing Flowsheets (Taken 04/19/2025 0430) Outcome Evaluation: VS stable. Plan of Care Reviewed With: patient Overall Patient Progress: no change Goal: Patient-Specific Goal (Individualized) Description: You can add care plan individualizations to a care plan. Examples of Individualizationmight be: Parent requests to be called daily at 9am for status, I have a hard time hearing out of my right ear, or Do not touch me to wake me up as it startles me. Outcome: Progressing Goal: Absence of Hospital-Acquired Illness or Injury Outcome: Progressing Intervention: Identify and Manage Fall Risk Recent Flowsheet Documentation Taken 04/19/2025 001 by Rosa Kraus RN Safety Promotion/Fall Prevention: clutter free environment maintained lighting adjusted nonskid shoes/slippers when out of bed Intervention: Prevent Skin Injury Recent Flowsheet Documentation Taken 04/19/2025 001 by Rosa Kraus RN Body Position: position changed independently Intervention: Prevent and Manage VTE (Venous Thromboembolism) Risk Recent Flowsheet Documentation Taken 04/19/2025 001 by Rosa Kraus RN VTE Prevention/Management: SCDs on (sequential compression devices) Intervention: Prevent Infection Recent Flowsheet Documentation Taken 04/19/2025 001 by Rosa Kraus RN Infection Prevention: hand hygiene promoted rest/sleep promoted single patient room provided Goal: Optimal Comfort and Wellbeing Outcome: Progressing Goal: Readiness for Transition of Care Outcome: Progressing * Plan of Care - Sherrill Tracy RN - 04/18/2025 11:00 PM CDT Assigned [id number] Pt in PACU Pt notes reviewed. Ready for transfer to [facility]. Goal Outcome Evaluation: Plan of Care Reviewed With: patient Overall Patient Progress: no changeOverall Patient Progress: no change Outcome Evaluation: PACU Problem: Adult Inpatient Plan of Care Goal: Plan of Care Review Description: The Plan of Care Review/Shift note should be completed every shift. The Outcome Evaluation is a brief statement about your assessment that the patient is improving, declining, or no change. This information will be displayed automatically on your shift note. Outcome: Progressing Flowsheets (Taken 04/18/20252153) Outcome Evaluation: PACU Plan of Care Reviewed With: patient Overall Patient Progress: no change Goal: Patient-Specific Goal (Individualized) Description: You can add care plan individualizations to a care plan. Examples of Individualizationmight be: Parent requests to be called daily at 9am for status, I have a hard time hearing out of my right ear, or Do not touch me to wake me up as it startles me. Outcome: Progressing Goal: Absence of Hospital-Acquired Illness or Injury Outcome: Progressing Goal: Optimal Comfort and Wellbeing Outcome: Progressing Goal: Readiness for Transition of Care Outcome: Progressing * Op Note - Tahira Castano MD - 04/18/2025 9:35 PM CDT OPERATIVE REPORT PREOPERATIVE DIAGNOSIS: Left ureteral stone, sepsis POSTOPERATIVE DIAGNOSIS: Same PROCEDURES PERFORMED: 1. Cystourethroscopy with left retrograde pyelography 2. Placement of left ureteral stent. 3. Intraoperative interpretation of fluoroscopic imaging. ANESTHESIA: General ESTIMATED BLOOD LOSS: 0 mL. DRAINS: Left 6 Fr x 24 cm JJ stent OPERATIVE INDICATIONS: Ivett Alexander is a 49 year old female who presented with a left obstructing ureteral stone and bacteremia. The patient was counseled on the alternatives, risks, and benefits and elected to proceed with the above stated procedure. DESCRIPTION OF PROCEDURE: After informed consent was obtained, the patient was taken to the operating room, and moved to the operating table. After adequate anesthesia was induced, the patient was repositioned in dorsal lithotomy position and prepped and draped in the usual sterile fashion. A timeout was taken to confirm correct patient, procedure and laterality. A 22[place] cystoscope was inserted into a well lubricated urethra. The urethra was unremarkable. The bladder was free of tumors, stones or diverticuli. The media was clear. Bilateral ureteral orifices were orthotopic. A glidewire was advanced into the left renal pelvis with the aid of a 5[place] open ended ureteral catheter. A retrograde pyelogram demonstrated mild left hydronephrosis and a duplex system with a common sheath- starting at the proximal ureter. The wire was replaced into the lower renal moiety and a 6 Fr x 24 cm JJ stent was advanced over the guidewire under fluoroscopic guidance with a good curl in the renal pelvis and bladder. The stent passed up easily with no appreciable r esistance. The bladder was then drained. The patient tolerated the procedure well. There were no complications. PLAN: - Transfer to acute care floor, continue Zosyn. Follow-up outside cultures - Follow-up for definitive stone management in next 2-3 weeks once her infection has been treated Tahira Castano MD Reconstructive Urology [facility] documented in this encounter Plan of Treatment Pending Results Name Type Priority Associated Diagnoses Date /Time Urine Culture Microbiology STAT 1:08 AM CDT Blood Culture Peripheral blood (BC) Wrist, Left Microbiology STAT 04/18/2025 10:14 PM CDT Blood Culture Peripheral blood (BC) Wrist, Left Microbiology STAT 04/18/2025 10:20 PM CDT Scheduled Orders Name Type Priority Associated Diagnoses Order Schedule Oxygen: Nasal cannula Respiratory Care Routine As Needed until discontinued starting 04/18/2025 Urine Culture Microbiology STAT STAT for 1 Occurrences starting 04/18/2025 until 04/18/2025 Potassium Lab Routine AM Draw for 1 Occurrences starting 04/20/2025 until 04/20/2025 Magnesium Lab Routine AM Draw for 1 Occurrences starting 04/20/2025 until 04/20/2025 documented as of this encounter Procedures * The patient is currently admitted. The information in this section might not be complete until the patient is discharged. Procedure Name Priority Date/Time Associated Diagnosis Comments MANUAL DIFFERENTIAL Routine 04/19/2025 7 :12 AM CDT RBC AND PLATELET MORPHOLOGY Routine 04/19/2025 7:12 AM CDT CBC WITH PLATELETS AND DIFFERENTIAL Routine 04/19/2025 7:12 AM CDT CBC WITH PLATELETS & DIFFERENTIAL Routine 04/19/2025 7:12 AM CDT MAGNESIUM Routine 04/19/2025 7:12 AM CDT COMPREHENSIVE METABOLIC PANEL Routine 04/19/2025 7:12 AM CDT BILIRUBIN DIRECT Routine 04/19/2025 7:12 AM CDT CBC WITH PLATELETS AND DIFFERENTIAL Timed 04/18/2025 11:33 PM CDT CBC WITH PLATELETS & DIFFERENTIAL Timed 04/18/2025 11:33 PM CDT INR Timed 04/18/2025 11:33 PM CDT PARTIAL THROMBOPLASTIN TIME Timed 04/18/2025 11:33 PM CDT MAGNESIUM Add-On 04/18/2025 11:33 PM CDT FIBRINOGEN ACTIVITY Timed 04/18/2025 1 1:33 PM CDT COMPREHENSIVE METABOLIC PANEL Timed 04/18/2025 11:33 PM CDT BLOOD CULTURE STAT 04/18/2025 10:20 PM CDT MORPHOLOGY TRACKING Routine 04/18/2025 1 0:14 PM CDT BLOOD MORPHOLOGY PATHOLOGIST REVIEW Routine 04/18/2025 10:14 PM CDT LACTIC ACID WHOLE BLOOD WITH 1X REPEAT IN 2 HR WHEN >2 Routine 04/18/2025 10:14 PM CDT RBC AND PLATELET MORPHOLOGY Routine 04/18/2025 10:14 PM CDT CBC WITH PLATELETS AND DIFFERENTIAL Routine 04/18/2025 10:14 PM CDT RETICULOCYTE COUNT Routine 04/18/2025 10 :14 PM CDT BLOOD MORPHOLOGY PATHOLOGIST REVIEW Routine 04/18/2025 10:14 PM CDT BLOOD CULTURE STAT 04/18/2025 10:14 PM CDT XR SURGERY YOSELIN FLUORO LESS THAN 5 MIN Routine 04/18/2025 9:44 PM CDT CYSTOSCOPY, WITH RETROGRADE PYELOGRAM AND URETERAL STENT INSERTION 04/18/2025 9:24 PM CDT Difficulty voiding RBC AND PLATELET MORPHOLOGY STAT 04/18/2025 8:53 PM CDT TYPE AND SCREEN, ADULT STAT 8:53 PM CDT LACTATE DEHYDROGENASE STAT Add-on 04/18/2025 8:53 PM CDT INR Routine 04/18/2025 8:53 PM CDT PARTIAL THROMBOPLASTIN TIME STAT 04/18/2025 8:53 PM CDT HEPATIC FUNCTION PANEL STAT Add-on 8:53 PM CDT FIBRINOGEN ACTIVITY Routine 04/18/2025 8 :53 PM CDT ABO/RH TYPE AND SCREEN STAT 8:53 PM CDT BASIC METABOLIC PANEL STAT 04/18/2025 8:53 PM CDT CBC WITH PLATELETS STAT 04/18/2025 8: 53 PM CDT documented in this encounter Results * Manual Differential (04/19/2025 7:12 AM CDT) % Neutrophils 82 % RENATA 04/19/2025 9:35 AM CDT [facility] % Lymphocytes 11 % RENATA 04/19/2025 9:35 AM CDT [facility] % Monocytes 7 % RENATA 04/19/2025 9:35 AM CDT [facility] % Eosinophils 0 % RENATA 04/19/2025 9:35 AM CDT [facility] % Basophils 0 % RENATA 04/19/2025 9:35 AM CDT [facility] Absolute Neutrophils 7.1 1.6 - 8.3 10e3/uL RENATA 04/19/2025 9:35 AM CDT [facility] Absolute Lymphocytes 0.9 0.8 - 5.3 10e3/uL RENATA 04/19/2025 9:35 AM CDT [facility] Absolute Monocytes 0.6 0.0 - 1.3 10e3/uL RENATA 04/19/2025 9:35 AM CDT [facility] Absolute Eosinophils 0.0 0.0 - 0.7 10e3/uL RENATA 04/19/2025 9:35 AM CDT [facility] Absolute Basophils 0.0 0.0 - 0.2 10e3/uL RENATA 04/19/2025 9:35 AM CDT [facility] Blood STRUCTURE OF LEFT HAND / Unknown Venipuncture / Unknown 04/19/2025 7:12 AM CDT 04/19/2025 7:19 AM CDT Trisha Aviles PA-C LAB - BLOOD ORDERABLES Fi nal Result [facility] [address] Lab (1st floor, no room number) [place] [address], [facility] * (ABNORMAL) RBC and Platelet Morphology (04/19/2025 7:12 AM CDT) RBC Morphology Confirmed RBC Indices 04/19/2025 9:34 AM CDT [facility] Platelet Assessment Automated Count Confirmed. Platelet morphology is normal. Automated Count Confirmed. Platelet morphology is normal. RENATA 04/19/2025 9:34 AM CDT [facility] Elliptocytes Slight(A) None Seen [facility] 04/19/2025 9:34 AM CDT [facility] Reactive Lymphocytes Present(A) None Seen [facility] 04/19/2025 9:34 AM CDT [facility] Teardrop Cells Slight(A) None Seen [facility] 04/19/2025 9:34 AM CDT [facility] Blood STRUCTURE OF LEFT HAND / Unknown Venipuncture / Unknown 04/19/2025 7:12 AM CDT 04/19/2025 7:19 AM CDT us Trisha Aviles PA-C LAB - BLOOD ORDERABLES Fi nal Result [facility] [address] ([facility], no room number) [place] [address], [facility] * (ABNORMAL) CBC with platelets and differential (04/19/2025 7:12 AM CDT) WBC Count 8.6 4.0 - 11.0 10e3/uL 04/19/2025 9:34 AM CDT [facility] RBC Count 3.24(L) 3.80 - 5.20 10e6/uL 04/19/2025 9:34 AM CDT [facility] Hemoglobin 9.7(L) 11.7 - 15.7 g/dL 04/19/2025 9:34 AM CDT [facility] Hematocrit 28.4(L) 35.0 - 47.0 % 04/19/2025 9:34 AM CDT [facility] MCV 88 78 - 100 fL 04/19/2025 9:34 AM CDT [facility] MCH 29.9 26.5 - 33.0 pg 04/19/2025 9:34 AM CDT [facility] MCHC 34.2 31.5 - 36.5 g/dL 04/19/2025 9:34 AM CDT [facility] RDW 12.0 10.0 - 15.0 % 04/19/2025 9:34 AM CDT [facility] Platelet Count 54(L) 150 - 450 10e3/uL 04/19/2025 9:34 AM CDT [facility] Blood STRUCTURE OF LEFT HAND / Unknown Venipuncture / Unknown 04/19/2025 7:12 AM CDT 04/19/2025 7:19 AM CDT Trisha EASLEY-C LAB - BLOOD ORDERABLES Fi nal Result LABORATORY [facility] [address] Lab (1st floor, no room number) [place] [address] * Magnesium (04/19/2025 7:12 AM CDT) Magnesium 2.2 1.7 - 2.3 mg/dL 04/19/2025 7:48 AM CDT LABORATORY Blood STRUCTURE OF LEFT HAND / Unknown Venipuncture / Unknown 04/19/2025 7:12 AM CDT 04/19/2025 7:19 AM CDT Gagandeep Gates MD LAB - BLOOD ORDERABLES Fin al Result Performing Organization Address City/[facility]/ZIP Co de Phone Number [facility] Lab [address] Lab (1st floor, no room number) [place] [address] * (ABNORMAL) Bilirubin direct (04/19/2025 7:12 AM CDT) Bilirubin Direct 0.31(H) 0.00 - 0.30 mg/dL 04/19/2025 7:48 AM CDT LABORATORY Comment:As of 25, refer ence ranges and trending lines may vary depending on the testing location. Blood STRUCTURE OF LEFT HAND / Unknown Venipuncture / Unknown 04/19/2025 7:12 AM CDT 04/19/2025 7:19 AM CDT Trisha Aviles PA-C LAB - BLOOD ORDERABLES Fi nal Result [facility] [address] Lab (1st floor, no room number) [place] [address] * (ABNORMAL) Comprehensive metabolic panel (04/19/2025 7:12 AM CDT) Sodium 136 135 - 145 mmol/L 04/19/2025 7:48 AM CDT [facility] Potassium 4.3 3.4 - 5.3 mmol/L 04/19/2025 7:48 AM CDT [facility] Carbon Dioxide (CO2) 22 22 - 29 mmol/L 04/19/2025 7:48 AM CDT [facility] Anion Gap 7 7 - 15 mmol/L 04/19/2025 7:48 AM CDT [facility] Urea Nitrogen 10.0 6.0 - 20.0 mg/dL 04/19/2025 7:48 AM CDT [facility] Creatinine 0.48(L) 0.51 - 0.95 mg/dL 04/19/2025 7:48 AM CDT [facility] GFR Estimate >90 >60 mL/min/1.7 3m2 04/19/2025 7:48 AM CDT [facility] Comment:eGFR calculated usin 2020 CKD-EPI equation. Calcium 7.8(L) 8.8 - 10.4 mg/dL 04/19/2025 7:48 AM CDT [facility] Chloride 107 98 - 107 mmol/L 04/19/2025 7:48 AM CDT [facility] Glucose 151(H) 70 - 99 mg/dL 04/19/2025 7:48 AM CDT [facility] Alkaline Phosphatase 107 40 - 150 U/L 04/19/2025 7:48 AM CDT [facility] AST 32 0 - 45 U/L 04/19/2025 7:48 AM CDT [facility] ALT 65(H) 0 - 50 U/L 04/19/2025 7:48 AM CDT [facility] Protein Total 5.4(L) 6.4 - 8.3 g/dL 04/19/2025 7:48 AM CDT [facility] Albumin 2.7(L) 3.5 - 5.2 g/dL 04/19/2025 7:48 AM CDT [facility] Bilirubin Total 0.8 <=1.2 mg/dL 04/19/2025 7:48 AM CDT [facility] Blood STRUCTURE OF LEFT HAND / Unknown Venipuncture / Unknown 04/19/2025 7:12 AM CDT 04/19/2025 7:19 AM CDT Trisha EASLEY-C LAB - BLOOD ORDERABLES Fi nal Result LABORATORY [facility] [address] Lab (1st floor, no room number) [place] [address] * Magnesium (04/18/2025 11:33 PM CDT) Pathologist [facility] Magnesium 2.1 1.7 - 2.3 mg/dL 04/19/2025 12:59 AM CDT [facility] Blood STRUCTURE OF RIGHT HAND / Unknown Venipuncture / Unknown 04/18/2025 11:33 PM CDT 04/18/2025 11:37 PM CDT Trisha EASLEY-C LAB - BLOOD ORDERABLES Fi nal Result LABORATORY [facility] [address] Lab (1st floor, no room number) [place] [phone] * (ABNORMAL) CBC with platelets and differential (04/18/2025 11:33 PM CDT) WBC Count 11.4(H) 4.0 - 11.0 10e3/uL 04/19/2025 12:03 AM CDT [facility] RBC Count 3.42(L) 3.80 - 5.20 10e6/uL 04/19/2025 12:03 AM CDT [facility] Hemoglobin 10.2(L) 11.7 - 15.7 g/dL 04/19/2025 12:03 AM CDT [facility] Hematocrit 30.1(L) 35.0 - 47.0 % 04/19/2025 12:03 AM CDT [facility] MCV 88 78 - 100 fL 04/19/2025 12:03 AM CDT [facility] MCH 29.8 26.5 - 33.0 pg 04/19/2025 12:03 AM CDT [facility] MCHC 33.9 31.5 - 36.5 g/dL 04/19/2025 12:03 AM CDT [facility] RDW 11.9 10.0 - 15.0 % 04/19/2025 12:03 AM CDT [facility] Platelet Count 42(LL) 150 - 450 10e3/uL 04/19/2025 12:03 AM CDT [facility] % Neutrophils 88 % 04/19/2025 12:03 AM CDT [facility] % Lymphocytes 7 % 04/19/2025 12:03 AM CDT [facility] % Monocytes 4 % 04/19/2025 12:03 AM CDT [facility] % Eosinophils 0 % 04/19/2025 12:03 AM CDT [facility] % Basophils 0 % 04/19/2025 12:03 AM CDT [facility] % Immature Granulocytes 2 % 04/19/2025 12:03 AM CDT [facility] NRBCs per 100 WBC 0 <1 /100 025 12:03 AM CDT [facility] Absolute Neutrophils 10.0(H) 1.6 - 8.3 10e3/uL 04/19/2025 12:03 AM CDT [facility] Absolute Lymphocytes 0.8 0.8 - 5.3 10e3/uL 04/19/2025 12:03 AM CDT [facility] Absolute Monocytes 0.4 0.0 - 1.3 10e3/uL 04/19/2025 12:03 AM CDT [facility] Absolute Eosinophils 0.0 0.0 - 0.7 10e3/uL 04/19/2025 12:03 AM CDT [facility] Absolute Basophils 0.0 0.0 - 0.2 10e3/uL 04/19/2025 12:03 AM CDT [facility] Absolute Immature Granulocytes 0.2 <=0.4 10e3/uL 04/19/2025 12:03 AM CDT [facility] Absolute NRBCs 0.0 10e3/uL 04/19/2025 12:03 AM CDT [facility] Blood STRUCTURE OF RIGHT HAND / Unknown Venipuncture / Unknown 04/18/2025 11:33 PM CDT 04/18/2025 11:37 PM CDT us Trisha Aviles PA-C LAB - BLOOD ORDERABLES Fi nal Result LABORATORY [facility] [address] Lab (1st floor, no room number) [place] [phone] [place] [address] * (ABNORMAL) Fibrinogen activity (04/18/2025 11:33 PM CDT) Fibrinogen Activity 681(H) 170 - 510 mg/dL 04/19/2025 12:05 AM CDT [facility] Blood STRUCTURE OF RIGHT HAND / Unknown Venipuncture / Unknown 04/18/2025 11:33 PM CDT 04/18/2025 11:37 PM CDT Trisha EASLEY-C LAB - BLOOD ORDERABLES Fi nal Result Performing Organization Address [facility]/ZIP Co de Phone Number [facility] [address] Lab (1st floor, no room number) [place] [phone] [place] [address] * Partial thromboplastin time (04/18/2025 11:33 PM CDT) aPTT 34 22 - 38 Seconds 04/19/2025 12:03 AM CDT [facility] Blood STRUCTURE OF RIGHT HAND / Unknown Venipuncture / Unknown 04/18/2025 11:33 PM CDT 04/18/2025 11:37 PM CDT Trisha EASLEY-C LAB - BLOOD ORDERABLES Fi nal Result Performing Organization Address City/[facility]/ZIP Co de Phone Number [facility] Lab [address] Lab (1st floor, no room number) [place] [phone] * INR (04/18/2025 11:33 PM CDT) INR 0.95 0.85 - 1.15 04/19/2025 12:03 AM CDT [facility] PT 12.8 11.8 - 14.8 Seconds 04/19/2025 12:03 AM CDT [facility] Blood STRUCTURE OF RIGHT HAND / Unknown Venipuncture / Unknown 04/18/2025 11:33 PM CDT 04/18/2025 11:37 PM CDT Trisha Aviles PA-C LAB - BLOOD ORDERABLES Fi nal Result LABORATORY [facility] [address] Lab (1st floor, no room number) [place] [address], [facility] * (ABNORMAL) Comprehensive metabolic panel (04/18/2025 11:33 PM CDT) Sodium 136 135 - 145 mmol/L 04/19/2025 12:05 AM [facility] Potassium 4.1 3.4 - 5.3 mmol/L 04/19/2025 12:05 AM [facility] Carbon Dioxide (CO2) 21(L) 22 - 29 mmol/L 04/19/2025 12:05 AM [facility] Anion Gap 10 7 - 15 mmol/L 04/19/2025 12:05 AM [facility] Urea Nitrogen 9.2 6.0 - 20.0 mg/dL 04/19/2025 12:05 AM [facility] Creatinine 0.49(L) 0.51 - 0.95 mg/dL 04/19/2025 12:05 AM [facility] GFR Estimate >90 >60 mL/min/1.7 3m2 04/19/2025 12:05 AM [facility] Comment:eGFR calculated usin 2020 CKD-EPI equation. Calcium 7.9(L) 8.8 - 10.4 mg/dL 04/19/2025 12:05 AM [facility] Chloride 105 98 - 107 mmol/L 04/19/2025 12:05 AM [facility] Glucose 183(H) 70 - 99 mg/dL 04/19/2025 12:05 AM [facility] Alkaline Phosphatase 128 40 - 150 U/L 04/19/2025 12:05 AM [facility] AST 42 0 - 45 U/L 04/19/2025 12:05 AM [facility] ALT 69(H) 0 - 50 U/L 04/19/2025 12:05 AM CDT [facility] Protein Total 5.6(L) 6.4 - 8.3 g/dL 04/19/2025 12:05 AM CDT [facility] Albumin 2.9(L) 3.5 - 5.2 g/dL 04/19/2025 12:05 AM CDT [facility] Bilirubin Total 1.0 <=1.2 mg/dL 04/19/2025 12:05 AM CDT [facility] Blood STRUCTURE OF RIGHT HAND / Unknown Venipuncture / Unknown 04/18/2025 11:33 PM CDT 04/18/2025 11:37 PM CDT Trisha RUFFINC LAB - BLOOD ORDERABLES Fi nal Result [facility] [address] Lab (1st floor, no room number) [place] [address] * RBC and Platelet Morphology (04/18/2025 10:14 PM CDT) Pathologist [facility] RBC Morphology Confirmed RBC Indices 04/19/2025 3:06 AM CDT [facility] Platelet Assessment Automated Count Confirmed. Platelet morphology is normal. Automated Count Confirmed. Platelet morphology is normal. [facility] 04/19/2025 3:06 AM CDT [facility] Blood STRUCTURE OF LEFT UPPER LIMB / Unknown Venipuncture / Unknown 04/18/2025 10:14 PM CDT 04/18/2025 10:23 PM CDT Trisha Aviles PA-C LAB - BLOOD ORDERABLES Fi nal Result [facility] Lab [address] Lab (1st floor, no room number) [place] [address], [facility] * Morphology Tracking (04/18/2025 10:14 PM CDT) Blood STRUCTURE OF LEFT UPPER LIMB / Unknown Venipuncture / Unknown 04/18/2025 10:14 PM CDT 04/18/2025 10:23 PM CDT Trisha RUFFINC LAB - BLOOD ORDERABLES Fi nal Result LABORATORY [facility] Lab [address] Lab (1st floor, no room number) [place] [address] * (ABNORMAL) Reticulocyte count (04/18/2025 10:14 PM CDT) % Reticulocyte 0.4(L) 0.5 - 2.0 % 04/18/2025 10:44 PM CDT [facility] Absolute Reticulocyte 0.012(L) 0.025 - 0.095 10e6/uL 04/18/2025 10:44 PM CDT [facility] Blood STRUCTURE OF LEFT UPPER LIMB / Unknown Venipuncture / Unknown 04/18/2025 10:14 PM CDT 04/18/2025 10:23 PM CDT Trisha RUFFINC LAB - BLOOD ORDERABLES Fi nal Result LABORATORY [facility] Lab [address] Lab (1st floor, no room number) [place] [address] * (ABNORMAL) CBC with platelets and differential (04/18/2025 10:14 PM CDT) WBC Count 10.6 4.0 - 11.0 10e3/uL 04/19/2025 12:00 AM CDT [facility] RBC Count 3.34(L) 3.80 - 5.20 10e6/uL 04/19/2025 12:00 AM CDT [facility] Hemoglobin 10.1(L) 11.7 - 15.7 g/dL 04/19/2025 12:00 AM CDT [facility] Hematocrit 29.4(L) 35.0 - 47.0 % 04/19/2025 12:00 AM CDT [facility] MCV 88 78 - 100 fL 04/19/2025 12:00 AM CDT [facility] MCH 30.2 26.5 - 33.0 pg 04/19/2025 12:00 AM CDT [facility] MCHC 34.4 31.5 - 36.5 g/dL 04/19/2025 12:00 AM CDT [facility] RDW 11.9 10.0 - 15.0 % 04/19/2025 12:00 AM CDT [facility] Platelet Count 39(LL) 150 - 450 10e3/uL 04/19/2025 12:00 AM CDT [facility] % Neutrophils 81 % 04/19/2025 12:00 AM CDT [facility] % Lymphocytes 9 % 04/19/2025 12:00 AM CDT [facility] % Monocytes 8 % 04/19/2025 12:00 AM CDT [facility] % Eosinophils 0 % 04/19/2025 12:00 AM CDT [facility] % Basophils 0 % 04/19/2025 12:00 AM CDT [facility] % Immature Granulocytes 2 % 04/19/2025 12:00 AM CDT [facility] NRBCs per 100 WBC 0 <1 /100 025 12:00 AM CDT [facility] Absolute Neutrophils 8.6(H) 1.6 - 8.3 10e3/uL 04/19/2025 12:00 AM CDT [facility] Absolute Lymphocytes 1.0 0.8 - 5.3 10e3/uL 04/19/2025 12:00 AM CDT [facility] Absolute Monocytes 0.8 0.0 - 1.3 10e3/uL 04/19/2025 12:00 AM CDT [facility] Absolute Eosinophils 0.0 0.0 - 0.7 10e3/uL 04/19/2025 12:00 AM CDT [facility] Absolute Basophils 0.0 0.0 - 0.2 10e3/uL 04/19/2025 12:00 AM CDT [facility] Absolute Immature Granulocytes 0.2 <=0.4 10e3/uL 04/19/2025 12:00 AM CDT [facility] Absolute NRBCs 0.0 10e3/uL 04/19/2025 12:00 AM CDT [facility] Blood STRUCTURE OF LEFT UPPER LIMB / Unknown Venipuncture / Unknown 04/18/2025 10:14 PM CDT 04/18/2025 10:23 PM CDT us Trisha Aviles PA-C LAB - BLOOD ORDERABLES Fi nal Result LABORATORY [facility] [address] Lab (1st floor, no room number) [place] [address], [facility] * Bld morphology pathology review (04/18/2025 10:14 PM CDT) Final Diagnosis Peripheral blood for morphology: - Mild normochromic, normocytic anemia - Slight mature neutrophilia - Marked thrombocytopenia 04/19/2025 4:09 PM CDT [facility] PATHOLOGY LAB at 1609 CDT Comment The clinical scenario of kidney stone and E. coli bacteremia is noted. Coagulation studies are normal and there is no evidence of a microangiopathic blood picture. The platelet count has improved slightly in the last few hours. 04/19/2025 4:09 PM CDT [facility] Clinical Information R/O DIC 04/19/2025 4:09 PM CDT [facility] Peripheral Smear ERYTHROCYTES: The hemoglobin is mildly decreased and the cells are normochromic and normocytic. Erythrocyte morphology is normal without evidence of other than a rare red cell fragment. There is no evidence of a microangiopathic blood picture. Polychromasia is minimal. LEUKOCYTES: The white count is normal. Neutrophils are slightly increased in absolute number. They are mature without evidence of left shift, toxic change, dysplasia or blasts. Lymphocytes are low-normal in absolute number and show normal morphologic heterogeneity. PLATELETS: The platelet count is markedly decreased. Morphology is normal. For patients over 18 years old, anemia and quantitative abnormalities of WBC and platelets (if present) may be further stratified as follows: Hemoglobin (g/dL) in (females)/males: (9.7 - 11.6)/ 10.0 - 12.6: Mild anemia (7.7 - 9.6)/ 7.7 - 9.6: Moderate anemia Less than 7.7: Marked anemia WBC (10^9/L): Greater than 50.0: Marked leukocytosis 18.0 - 50.0: Moderate leukocytosis 11.1 - 17.9: Mild leukocytosis 3.0 - 3.9: Mild leukopenia 2.0 - 2.9: Moderate leukopenia Less than 2.0: Marked leukopenia Platelets (10^9/L): Greater than 900: Marked thrombocytosis 601 - 900: Moderate thrombocytosis 451 - 600: Mild thrombocytosis 100 - 149: Mild thrombocytopenia 50 - 99: Moderate thrombocytopenia Less than 50: Marked thrombocytopenia 04/19/2025 4:09 PM [facility] PATH[facility] LAB Peripheral Hematologic Data CBC with auto differential: RESULT VALUE REF RANGE UNITS ABNORMALITY WBC Count 10.6 4.0-11.0 10e3/uL Normal RBC Count 3.34 3.80-5.20 10e6/uL Low Hemoglobin 10.1 11.7-15.7 g/dL Low Hematocrit 29.4 35.0-47.0 % Low MCV 88 78-100 fL Normal MCH 30.2 26.5-33.0 pg Normal MCHC 34.4 31.5-36.5 g/dL Normal RDW 11.9 10.0-15.0 % Normal Platelet Count 39 150-450 10e3/uL Low Critical % Neutrophils 81 % % Lymphocytes 9 % % Monocytes 8 % % Eosinophils 0 % % Basophils 0 % % Immature Granulocytes 2 % NRBCs per 100 WBC 0 <1 /100 Normal Absolute Neutrophils 8.6 1.6-8.3 10e3/uL High Absolute Lymphocytes 1.0 0.8-5.3 10e3/uL Normal Absolute Monocytes 0.8 0.0-1.3 10e3/uL Normal Absolute Eosinophils 0.0 0.0-0.7 10e3/uL Normal Absolute Basophils 0.0 0.0-0.2 10e3/uL Normal Absolute Immature Granulocytes 0.2 <=0.4 10e3/uL Normal 04/19/2025 4:09 PM [facility] LAB Performing Labs The technical component of this testing was completed at [facility], [facility] and [facility] 04/19/2025 4:09 PM [facility] Blood BLOOD SPECIMEN / Unknown Venipuncture / Unknown 04/18/2025 10:14 PM CDT 04/18/2025 10:23 PM CDT Comment:CBC with platelets d ifferential and Reticulocyte count should be ordered concurrently with the peripheral smear (all tests performed on the same tube of blood). The concurrent CBC with platelets differential and Reticulocyte count are incorporated into the final peripheral smear report and are necessary for interpretation. us Trisha RUFFINC GBAE - BEAKER AP Final Res ult Performing Organization Address City/[facility]/ZIP Co de Phone Number [facility] LAB [facility] Pathology Lab [address], [address] [place] [address] * Lactic Acid Whole Blood with 1X Repeat in 2 HR when >2 (04/18/2025 10:14 PM CDT) Lactic Acid, Initial 0.9 0.7 - 2.0 mmol/L 04/18/2025 10:25 PM CDT LABORATORY Blood STRUCTURE OF LEFT UPPER LIMB / Unknown Venipuncture / Unknown 04/18/2025 10:14 PM CDT 04/18/2025 10:23 PM CDT us Raciel Martin MD LAB - BLOOD ORDERABLES Final Result Performing Organization Address [facility] Co de Phone Number LABORATORY [facility] [address] Lab (1st floor, no room number) [place] [address] * XR Surgery YOSELIN L/T 5 Min Fluoro (04/18/2025 9:44 PM CDT) Narrative [facility] - 04/18/2025 9:45 PM CDT This exam was marked as non-reportable because it will not be read by a radiologist or a [place] non-radiologist provider. Tahira Castano MD IMG DIAGNOSTIC IMAGING ORDERA BLES Final Result Performing Organization Address City/[facility]/ZIP Co de Phone Number [facility] * Lactate Dehydrogenase (04/18/2025 8:53 PM CDT) Lactate Dehydrogenase 224 0 - 250 U/L 04/18/2025 10:13 PM CDT LABORATORY Blood STRUCTURE OF LEFT UPPER LIMB / Unknown Venipuncture / Unknown 04/18/2025 8:53 PM CDT 04/18/2025 8:58 PM CDT Trisha Aviles PA-C LAB - BLOOD ORDERABLES Fi nal Result LABORATORY [facility] [address] Lab (1st floor, no room number) [place] [address], [facility] * (ABNORMAL) Hepatic function panel (04/18/2025 8:53 PM CDT) Pathologist [facility] Protein Total 5.6(L) 6.4 - 8.3 g/dL 04/18/2025 10:13 PM CDT [facility] Albumin 2.9(L) 3.5 - 5.2 g/dL 04/18/2025 10:13 PM CDT LABORATORY Bilirubin Total 1.3(H) <=1.2 mg/dL 04/18/2025 10:13 PM CDT LABORATORY Alkaline Phosphatase 136 40 - 150 U/L 04/18/2025 10:13 PM CDT LABORATORY AST 36 0 - 45 U/L 04/18/2025 10:13 PM CDT LABORATORY ALT 65(H) 0 - 50 U/L 04/18/2025 10:13 PM CDT LABORATORY Bilirubin Direct 0.44(H) 0.00 - 0.30 mg/dL 04/18/2025 10:13 PM CDT [facility] Comment:As of 25, refer ence ranges and trending lines may vary depending on the testing location. Blood STRUCTURE OF LEFT UPPER LIMB / Unknown Venipuncture / Unknown 04/18/2025 8:53 PM CDT 04/18/2025 8:58 PM CDT Trisha Aviles PA-C LAB - BLOOD ORDERABLES Fi nal Result LABORATORY [facility] [address] Lab (1st floor, no room number) [place] [address], [facility] * RBC and Platelet Morphology (04/18/2025 8:53 PM CDT) Pathologist [facility] RBC Morphology Confirmed RBC Indices 04/18/2025 9:47 PM CDT [facility] Platelet Assessment Automated Count Confirmed. Platelet morphology is normal. Automated Count Confirmed. Platelet morphology is normal. [facility] 04/18/2025 9:47 PM CDT [facility] Blood STRUCTURE OF LEFT UPPER LIMB / Unknown Venipuncture / Unknown 04/18/2025 8:53 PM CDT 04/18/2025 8:58 PM CDT Raciel Martin MD LAB - BLOOD ORDERABLES Final Result LABORATORY [facility] [address] Lab (1st floor, no room number) [place] [address] * Adult Type and Screen (04/18/2025 8:53 PM CDT) Pathologist [facility] ABO/RH(D) B POS 04/18/2025 8:35 PM CDT RH BLOOD BANK Antibody Screen Negative Negative 04/18/2025 8:35 PM CDT RH BLOOD BANK SPECIMEN EXPIRATION DATE 04/21/2025 11:59:00 PM CDT 04/18/2025 8:35 PM CDT RH BLO[facility] B[facility] Blood STRUCTURE OF LEFT UPPER LIMB / Unknown Venipuncture / Unknown 04/18/2025 8:53 PM CDT 04/18/2025 8:58 PM CDT Raciel Martin MD LAB - BLOOD BANK TEST O RDER Final Result RH BLOOD BANK [address] [place] [address], [facility] * (ABNORMAL) Basic metabolic panel (04/18/2025 8:53 PM CDT) Pathologist [facility] Sodium 137 135 - 145 mmol/L 04/18/2025 9:23 PM CDT [facility] LAB[facility]ORY Potassium 4.2 3.4 - 5.3 mmol/L 04/18/2025 9:23 PM CDT [facility] Chloride 107 98 - 107 mmol/L 04/18/2025 9:23 PM CDT [facility] Carbon Dioxide (CO2) 21(L) 22 - 29 mmol/L 04/18/2025 9:23 PM CDT [facility] Anion Gap 9 7 - 15 mmol/L 04/18/2025 9:23 PM CDT [facility] Urea Nitrogen 10.2 6.0 - 20.0 mg/dL 04/18/2025 9:23 PM CDT [facility] Creatinine 0.60 0.51 - 0.95 mg/dL 04/18/2025 9:23 PM CDT [facility] GFR Estimate >90 >60 mL/min/1.7 3m2 04/18/2025 9:23 PM CDT [facility] Comment:eGFR calculated us2020 CKD-EPI equation. Calcium 8.0(L) 8.8 - 10.4 mg/dL 04/18/2025 9:23 PM CDT LABORATORY Glucose 106(H) 70 - 99 mg/dL 04/18/2025 9:23 PM CDT LABORATORY Blood STRUCTURE OF LEFT UPPER LIMB / Unknown Venipuncture / Unknown 04/18/2025 8:53 PM CDT 04/18/2025 8:58 PM CDT Raciel Martin MD LAB - BLOOD ORDERABLES Final Result [facility] Lab [address] [facility] Lab (1st floor, no room number) [place] [address] * (ABNORMAL) Fibrinogen activity (04/18/2025 8:53 PM CDT) Fibrinogen Activity 689(H) 170 - 510 mg/dL 04/18/2025 9:44 PM CDT LABORATORY Blood STRUCTURE OF LEFT UPPER LIMB / Unknown Venipuncture / Unknown 04/18/2025 8:53 PM CDT 04/18/2025 8:58 PM CDT Raciel Martin MD LAB - BLOOD ORDERABLES Final Result [facility] [address] Lab (1st floor, no room number) [place] [address] * Partial thromboplastin time (04/18/2025 8:53 PM CDT) Pathologist [facility] aPTT 35 22 - 38 Seconds 04/18/2025 9:44 PM CDT RH LABORATORY Blood STRUCTURE OF LEFT UPPER LIMB / Unknown Venipuncture / Unknown 04/18/2025 8:53 PM CDT 04/18/2025 8:58 PM CDT Raciel Martin MD LAB - BLOOD ORDERABLES Final Result Performing Organization Address City/[facility]/ZIP Co de Phone Number [facility] Lab [address] Lab (1st floor, no room number) [place] [phone] * INR (04/18/2025 8:53 PM CDT) Pathologist [facility] INR 1.01 0.85 - 1.15 04/18/2025 9:44 PM CDT RH LABORATORY PT 13.4 11.8 - 14.8 Seconds 04/18/2025 9:44 PM CDT [facility] LABORATORY Blood STRUCTURE OF LEFT UPPER LIMB / Unknown Venipuncture / Unknown 04/18/2025 8:53 PM CDT 04/18/2025 8:58 PM CDT Raciel Martin MD LAB - BLOOD ORDERABLES Final Result [facility] [address] Lab (1st floor, no room number) [place] [address] * (ABNORMAL) CBC with platelets (04/18/2025 8:53 PM CDT) Pathologist [facility] WBC Count 12.8(H) 4.0 - 11.0 10e3/uL 04/18/2025 9:47 PM CDT [facility] RBC Count 3.45(L) 3.80 - 5.20 10e6/uL 04/18/2025 9:47 PM CDT [facility] Hemoglobin 10.3(L) 11.7 - 15.7 g/dL 04/18/2025 9:47 PM CDT [facility] Hematocrit 29.9(L) 35.0 - 47.0 % 04/18/2025 9:47 PM CDT [facility] LAB[facility] MCV 87 78 - 100 fL 04/18/2025 9:47 PM CDT [facility] LAB[facility] MCH 29.9 26.5 - 33.0 pg 04/18/2025 9:47 PM CDT [facility] MCHC 34.4 31.5 - 36.5 g/dL 04/18/2025 9:47 PM CDT [facility] RDW 11.9 10.0 - 15.0 % 04/18/2025 9:47 PM CDT [facility] Platelet Count 41(LL) 150 - 450 10e3/uL 04/18/2025 9:47 PM CDT [facility] Blood STRUCTURE OF LEFT UPPER LIMB / Unknown Venipuncture / Unknown 04/18/2025 8:53 PM CDT 04/18/2025 8:58 PM CDT us Raciel Martin MD LAB - BLOOD ORDERABLES Final Result LABORATORY [facility] [address] [facility] (1st floor, no room number) [place] [address], [facility] documented in this encounter Visit Diagnoses Diagnosis Sepsis secondary to UTI (H) Urinary tract infection, site not specified documented in this encounter Admitting Diagnoses Diagnosis Sepsis secondary to UTI (H) Urinary tract infection, site not specified documented in this encounter Administered Medications Active Administered Medications - up to 3 most recent administrations Medication Order MAR Action Action Date Dose Rate Site acetaminophen (TYLENOL) Suppository 650 mg 650 mg, Rectal, EVERY 4 HOURS PRN, mild pain, other, and adjunct with moderate or severe pain or per patient request, Starting on Wed04/18/25 at 2318, Alternate with ibuprofen if ordered. Maximum acetaminophen dose from all sources = 75 mg/kg/day not to exceed 4 grams/day. acetaminophen (TYLENOL) tablet 650 mg 650 mg, Oral, EVERY 4 HOURS PRN, mild pain, other, and adjunct with moderate or severe pain or per patient request, Starting on Wed04/18/25 at 2318, Alternate with ibuprofen if ordered. Maximum acetaminophen dose from all sources = 75 mg/kg/day not to exceed 4 grams/day. $Given 04/19/2025 7:06 PM CDT 650 mg cefTRIAXone (ROCEPHIN) 1 g vial to attach to NS 100 mL bag for ADULTS or NS 50 mL bag for PEDS Routine, 1 g, Intravenous, EVERY 24 HOURS, First dose on Vanessa 04/19/25 at 1400, Lactated Ringer's solution is not compatible with ceftriaxone for injection, Indications: Urinary Tract Infection, e coliIndications:Urinary Tract Infection,e coli $New Bag 04/19/2025 2:33 PM CDT 1 g HYDROmorphone (DILAUDID) injection 0.4 mg 0.4 mg, Intravenous, EVERY 2 HOURS PRN, severe pain, IF patient cannot take oral opioid OR IF pain not managed with non-pharmacological, non-opioid, or oral opioid interventions if ordered, Starting on 04/18/25 at 2318, May use concomitant with non-opioid analgesics. $Given 04/19/2025 12:08 AM CDT 0.4 mg lactated ringers infusion at 125 mL/hr, Intravenous, CONTINUOUS, Starting on Wed04/18/25 at 2330, Until Discontinued Rate/Dose Verify 04/19/2025 10:40 PM CDT 125 mL/hr $New Bag 04/19/2025 4:48 PM CDT 125 mL/hr Rate/Dose Verify 04/19/2025 3:30 PM CDT 125 mL/ hr naloxone (NARCAN) injection 0.2 mg 0.2 mg, Intravenous, EVERY 2 MIN PRN, opioid reversal, Starting on Vanessa 04/19/25 at 1003, Administer intravenous route when available and notify provider when administered. For unintended sedation or respiratory depression if all of the below criteria are met: ~ respiratory rate LESS than or EQUAL to 8. ~SaO2 less than 92% and or/end-tidal CO2 is greater than 50. ~ the patient is receiving an opioid, has unintended sedations assessed as RASS (-3), and is currently not on mechanical ventilation. RASS scale moderate (-3) is movement or eye opening to voice but no eye contact. Patient Monitoring Once the patient has demonstrated a response to the naloxone, continue to monitor respiratory rate, depth, oxygen saturation and end-tidal CO2 (if available) every 15 minutes x 2, then every 30 minutes x 2, then every 1 hour x 1 after each naloxone dose. Consider transfer to ICU if patient respiratory parameters have not improved after 4 naloxone doses. naloxone (NARCAN) injection 0.2 mg 0.2 mg, Intramuscular, EVERY 2 MIN PRN, opioid reversal, Starting on Vanessa 04/19/25 at 1003, Administer intramuscular if an intravenous route is not available and notify provider when administered. For unintended sedation or respiratory depression if all of the below criteria are met: ~ respiratory rate LESS than or EQUAL to 8. ~SaO2 less than 92% and or/end-tidal CO2 is greater than 50. ~ the patient is receiving an opioid, has unintended sedations assessed as RASS (-3), and is currently not on mechanical ventilation. RASS scale moderate (-3) is movement or eye opening to voice but no eye contact. Patient Monitoring Once the patient has demonstrated a response to the naloxone, continue to monitor respiratory rate, depth, oxygen saturation and end-tidal CO2 (if available) every 15 minutes x 2, then every 30 minutes x 2, then every 1 hour x 1 after each naloxone dose. Consider transfer to ICU if patient respiratory parameters have not improved after 4 naloxone doses. naloxone (NARCAN) injection 0.4 mg 0.4 mg, Intravenous, EVERY 2 MIN PRN, opioid reversal, Starting on Vanessa 04/19/25 at 1003, Administer intravenous route when available and notify provider when administered. For unintended sedation or respiratory depression if all of the below criteria are met: ~ respiratory rate LESS than or EQUAL to 8. ~ SaO2 less than 92% and or/end-tidal CO2 is greater than 50. ~ the patient is receiving an opioid, has unintended sedation assessed as RASS (-4) or (-5) and patient is currently not on mechanical ventilation. RASS scale (-4) is deep sedation with no response to voice but movement or eye opening to physical stimulation. RASS scale (-5) is unarousable. Patient Monitoring Once the patient has demonstrated a response to the naloxone, continue to monitor respiratory rate, depth, oxygen saturation and end-tidal CO2 (if available) every 15 minutes x 2, then every 30 minutes x 2, then every 1 hour x 1 after each naloxone dose. Consider transfer to ICU if patient respiratory parameters have not improved after 4 naloxone doses. naloxone (NARCAN) injection 0.4 mg 0.4 mg, Intramuscular, EVERY 2 MIN PRN, opioid reversal, Starting on Vanessa 04/19/25 at 1003, Administer intramuscular if an intravenous route is not available and notify provider when administered. For unintended sedation or respiratory depression if all of the below criteria are met: ~ respiratory rate LESS than or EQUAL to 8. ~ SaO2 less than 92% and or/end-tidal CO2 is greater than 50. ~ the patient is receiving an opioid, has unintended sedation assessed as RASS (-4) or (-5) and patient is currently not on mechanical ventilation. RASS scale (-4) is deep sedation with no response to voice but movement or eye opening to physical stimulation. RASS scale (-5) is unarousable. Patient Monitoring Once the patient has demonstrated a response to the naloxone, continue to monitor respiratory rate, depth, oxygen saturation and end-tidal CO2 (if available) every 15 minutes x 2, then every 30 minutes x 2, then every 1 hour x 1 after each naloxone dose. Consider transfer to ICU if patient respiratory parameters have not improved after 4 naloxone doses. ondansetron (ZOFRAN ODT) ODT tab 4 mg 4 mg, Oral, EVERY 6 HOURS PRN, nausea/vomiting - 1st line, Starting on 04/18/25 at 2318, This is Step 1 of nausea and vomiting management. If nausea not resolved in 15 minutes, go to Step 2 prochlorperazine (COMPAZINE). With dry hands, peel back foil backing and gently remove tablet. Do not push oral disintegrating tablet through foil backing. Administer immediately on tongue and oral disintegrating tablet dissolves in seconds, then swallow with saliva. Liquid not required. ondansetron (ZOFRAN) injection 4 mg 4 mg, Intravenous, EVERY 6 HOURS PRN, nausea/vomiting - 1st line, Administer over 2-5 Minutes, Starting on 04/18/25 at 2318, Give IF patient unable to tolerate oral medication. This is Step 1 of nausea and vomiting management. If nausea not resolved in 15 minutes, go to Step 2 prochlorperazine (COMPAZINE). phenazopyridine (PYRIDIUM) tablet 100 mg 100 mg, Oral, 3 TIMES DAILY PRN, urinary tract discomfort, Starting on Vanessa 04/19/25 at 1049 prochlorperazine (COMPAZINE) injection 10 mg 10 mg, Intravenous, EVERY 6 HOURS PRN, nausea/vomiting - 2nd line, Administer over 1-2 Minutes, Starting on Wed04/18/25 at 2318, IF patient unable to tolerate oral medication. This is Step 2 of nausea and vomiting management. Give if nausea not resolved 15 minutes after giving ondansetron (ZOFRAN). prochlorperazine (COMPAZINE) tablet 10 mg 10 mg, Oral, EVERY 6 HOURS PRN, nausea/vomiting - 2nd line, Starting on Wed04/18/25 at 2318, This is Step 2 of nausea and vomiting management. Give if nausea not resolved 15 minutes after giving ondansetron (ZOFRAN). senna-docusate (SENOKOT-S/PERICOLACE) 8.6-50 MG per tablet 1 tablet 1 tablet, Oral, 2 TIMES DAILY PRN, constipation, Starting on Wed04/18/25 at 2318, If no bowel movement in 24 hours, increase to 2 tablets by mouth. IF more than 1 constipation PRN medication is ordered, administer step-haskins as indicated, moving to the next step ONLY if prior step ineffective. Step 1: senna-docusate (SENOKOT-S; PERICOLACE) OR bisacodyl (DULCOLAX) EC tablet Step 2: polyethylene glycol (MIRALAX/GLYCOLAX) Step 3: bisacodyl (DULCOLAX) suppository Step 4: enema Hold for loose stools. senna-docusate (SENOKOT-S/PERICOLACE) 8.6-50 MG per tablet 1 tablet 1 tablet, Oral, 2 TIMES DAILY, First dose on Wed04/18/25 at 2330, If no bowel movement in 24 hours, increase to 2 tablets by mouth. Hold for loose stools. $Given 04/19/2025 7:06 PM CDT 1 tablet $Given 04/19/2025 9:53 AM CDT 1 tablet senna-docusate (SENOKOT-S/PERICOLACE) 8.6-50 MG per tablet 2 tablet 2 tablet, Oral, 2 TIMES DAILY PRN, constipation, Starting on Wed04/18/25 at 2318, IF more than 1 constipation PRN medication is ordered, administer step-haskins as indicated, moving to the next step ONLY if prior step ineffective. Step 1: senna-docusate (SENOKOT-S; PERICOLACE) OR bisacodyl (DULCOLAX) EC tablet Step 2: polyethylene glycol (MIRALAX/GLYCOLAX) Step 3: bisacodyl (DULCOLAX) suppository Step 4: enema Hold for loose stools. senna-docusate (SENOKOT-S/PERICOLACE) 8.6-50 MG per tablet 2 tablet 2 tablet, Oral, 2 TIMES DAILY, First dose on Wed04/18/25 at 2330, Hold for loose stools. Inactive Administered Medications - up to 3 most recent administrations Medication Order MAR Action Action Date Dose Rate Site fentaNYL (PF) (SUBLIMAZE) injection 25 mcg 25 mcg, Intravenous, EVERY 5 MIN PRN, moderate pain, Give fentaNYL (SUBLIMAZE) first if HYDROmorphone (DILAUDID) also ordered., Starting on Wed04/18/25 at 2044, Administer fentaNYL (SUBLIMAZE) for acute pain control. Move to HYDROmorphone (DILAUDID): -IF patient has received up to 200 mcg of fentaNYL (SUBLIMAZE) OR - IF patient has received 2 doses of fentaNYL (SUBLIMAZE) AND continues to have pain score greater than or equal to six (6) or is unable to participate in post op recovery due to pain. Wait 5 minutes AFTER last fentaNYL (SUBLIMAZE) dose before administering HYDROmorphone (DILADUDID). Postop Anesthesia Phase I only. Notify Provider to assess for uncontrolled pain or analgesic side effects. DO NOT revert back to fentanyl (SUBLIMAZE) after moving to HYDROmorphone (DILAUDID)., PACU $Given 04/18/2025 10:44 PM CDT 25 mcg piperacillin-tazobactam (ZOSYN) 3.375 g vial to attach to NS 100 mL bag Routine, 3.375 g, Intravenous, EVERY 6 HOURS, First dose on Vanessa 04/19/25 at 0300, Lactated Ringer's solution is not compatible with piperacillin-tazobactam for injection., Indications: Urinary Tract InfectionIndications:Urinary Tract Infection $New Bag 04/19/2025 9:52 AM CDT 3.375 g $New Bag 04/19/2025 3:01 AM CDT 3.375 g documented in this encounter Active and Recently Administered Medications Times are shown in CDT. Scheduled Medication Order 04/18/2025 04/19/2025 04/20/2025 cefTRIAXone (ROCEPHIN) 1 g vial to attach to NS 100 mL bag for ADULTS or NS 50 mL bag for PEDS Routine, 1 g, Intravenous, EVERY 24 HOURS, First dose on Vanessa 04/19/25 at 1400, Lactated Ringer's solution is not compatible with ceftriaxone for injection, Indications: Urinary Tract Infection, e coli 1433 ($New Bag - Provider: Ammy Zaragoza RN) 1400 (Due) piperacillin-tazobactam (ZOSYN) 3.375 g vial to attach to NS 100 mL bag (CANCELED) Routine, 3.375 g, Intravenous, EVERY 6 HOURS, First dose on Vanessa 04/19/25 at 0300, Lactated Ringer's solution is not compatible with piperacillin-tazobactam for injection., Indications: Urinary Tract Infection 0301 ($New Bag - Provider: Rosa Kraus RN)0952 ($New Bag - Provider: Ammy Zaragoza RN) senna-docusate (SENOKOT-S/PERICOLACE) 8.6-50 MG per tablet 1 tablet(Linked Group 1) 1 tablet, Oral, 2 TIMES DAILY, First dose on 04/18/25 at 2330, If no bowel movement in 24 hours, increase to 2 tablets by mouth. Hold for loose stools. 0024 (Not Given - Provider: Rosa Kraus RN - Reason: Other - Comment: to be given at 0800 and 1999)0953 ($Given - Provider: Ammy Zaragoza RN)190 ($Given - Provider: Sherrill Tracy RN) 0800 (Due)1999 (Due) senna-docusate (SENOKOT-S/PERICOLACE) 8.6-50 MG per tablet 2 tablet(Linked Group 1) 2 tablet, Oral, 2 TIMES DAILY, First dose on 04/18/25 at 2330, Hold for loose stools. 0024 (See Alternative - Provider: Rosa Kraus RN)0953 (See Alternative - Provider: Ammy Zaragoza RN)1906 (See Alternative - Provider: Sherrill Tracy RN) 0800 (Due)2000 (Due) Continuous Medication Order 04/18/2025 04/19/2025 04/20/2025 lactated ringers infusion at 125 mL/hr, Intravenous, CONTINUOUS, Starting on Wed04/18/25 at 2330, Until Discontinued 0001 ($New Bag - Provider: Rosa Kraus, RN)0730 (Rate/Dose Verify - Provider: Ammy Zaragoza, RN)0819 ($New Bag - Provider: Heath Cazares RN)0955 (Paused - Provider: Ammy Zaragoza RN - Comment: abx infusing)1100 (Restarted - Provider: Ammy Zaragoza, RN)1530 (Rate/Dose Verify - Provider: Sherrill Tracy RN)1648 ($New Bag - Provider: Nany Joel RN)2240 (Rate/Dose Verify - Provider: Sherrill Tracy RN) PRN Medication Order 04/18/2025 04/19/2025 04/20/2025 acetaminophen (TYLENOL) Suppository 650 mg(Linked Group 2) 650 mg, Rectal, EVERY 4 HOURS PRN, mild pain, other, and adjunct with moderate or severe pain or per patient request, Starting on Wed04/18/25 at 2318, Alternate with ibuprofen if ordered. Maximum acetaminophen dose from all sources = 75 mg/kg/day not to exceed 4 grams/day. 1905 (See Alternative - Provider: Sherrill Tracy RN) acetaminophen (TYLENOL) tablet 650 mg(Linked Group 2) 650 mg, Oral, EVERY 4 HOURS PRN, mild pain, other, and adjunct with moderate or severe pain or per patient request, Starting on Wed04/18/25 at 2318, Alternate with ibuprofen if ordered. Maximum acetaminophen dose from all sources = 75 mg/kg/day not to exceed 4 grams/day. 190 ($Given - Provider: Sherrill Tracy RN) 0018 (Due) fentaNYL (PF) (SUBLIMAZE) injection 25 mcg (CANCELED) 25 mcg, Intravenous, EVERY 5 MIN PRN, moderate pain, Give fentaNYL (SUBLIMAZE) first if HYDROmorphone (DILAUDID) also ordered., Starting on Wed04/18/25 at 2045, Administer fentaNYL (SUBLIMAZE) for acute pain control. Move to HYDROmorphone (DILAUDID): -IF patient has received up to 200 mcg of fentaNYL (SUBLIMAZE) OR - IF patient has received 2 doses of fentaNYL (SUBLIMAZE) AND continues to have pain score greater than or equal to six (6) or is unable to participate in post op recovery due to pain. Wait 5 minutes AFTER last fentaNYL (SUBLIMAZE) dose before administering HYDROmorphone (DILADUDID). Postop Anesthesia Phase I only. Notify Provider to assess for uncontrolled pain or analgesic side effects. DO NOT revert back to fentanyl (SUBLIMAZE) after moving to HYDROmorphone (DILAUDID)., PACU 2244 ($Given - Provider: Tahira Love RN) HYDROmorphone (DILAUDID) injection 0.2 mg 0.2 mg, Intravenous, EVERY 2 HOURS PRN, moderate pain, IF patient cannot take oral opioid OR IF pain not managed with non-pharmacological, non-opioid, or oral opioid interventions if ordered, Starting on 04/18/25 at 2318, May use concomitant with non-opioid analgesics. HYDROmorphone (DILAUDID) injection 0.4 mg 0.4 mg, Intravenous, EVERY 2 HOURS PRN, severe pain, IF patient cannot take oral opioid OR IF pain not managed with non-pharmacological, non-opioid, or oral opioid interventions if ordered, Starting on 04/18/25 at 2318, May use concomitant with non-opioid analgesics. 0008 ($Given - Provider: Rosa Kraus RN) iopamidol 61% (ISOVUE 300) 50 mL + NaCl 0.9% 50 mL (CANCELED) PRN, Starting on 04/18/25 at 2141, Intra-procedure 2141 ($Given - Provider: Tahira Castano MD) naloxone (NARCAN) injection 0.2 mg(Linked Group 3) 0.2 mg, Intravenous, EVERY 2 MIN PRN, opioid reversal, Starting on Vanessa 04/19/25 at 1003, Administer intravenous route when available and notify provider when administered. For unintended sedation or respiratory depression if all of the below criteria are met: ~ respiratory rate LESS than or EQUAL to 8. ~SaO2 less than 92% and or/end-tidal CO2 is greater than 50. ~ the patient is receiving an opioid, has unintended sedations assessed as RASS (-3), and is currently not on mechanical ventilation. RASS scale moderate (-3) is movement or eye opening to voice but no eye contact. Patient Monitoring Once the patient has demonstrated a response to the naloxone, continue to monitor respiratory rate, depth, oxygen saturation and end-tidal CO2 (if available) every 15 minutes x 2, then every 30 minutes x 2, then every 1 hour x 1 after each naloxone dose. Consider transfer to ICU if patient respiratory parameters have not improved after 4 naloxone doses. naloxone (NARCAN) injection 0.2 mg(Linked Group 3) 0.2 mg, Intramuscular, EVERY 2 MIN PRN, opioid reversal, Starting on Vanessa 04/19/25 at 1003, Administer intramuscular if an intravenous route is not available and notify provider when administered. For unintended sedation or respiratory depression if all of the below criteria are met: ~ respiratory rate LESS than or EQUAL to 8. ~SaO2 less than 92% and or/end-tidal CO2 is greater than 50. ~ the patient is receiving an opioid, has unintended sedations assessed as RASS (-3), and is currently not on mechanical ventilation. RASS scale moderate (-3) is movement or eye opening to voice but no eye contact. Patient Monitoring Once the patient has demonstrated a response to the naloxone, continue to monitor respiratory rate, depth, oxygen saturation and end-tidal CO2 (if available) every 15 minutes x 2, then every 30 minutes x 2, then every 1 hour x 1 after each naloxone dose. Consider transfer to ICU if patient respiratory parameters have not improved after 4 naloxone doses. naloxone (NARCAN) injection 0.4 mg(Linked Group 3) 0.4 mg, Intravenous, EVERY 2 MIN PRN, opioid reversal, Starting on Vanessa 04/19/25 at 1003, Administer intravenous route when available and notify provider when administered. For unintended sedation or respiratory depression if all of the below criteria are met: ~ respiratory rate LESS than or EQUAL to 8. ~ SaO2 less than 92% and or/end-tidal CO2 is greater than 50. ~ the patient is receiving an opioid, has unintended sedation assessed as RASS (-4) or (-5) and patient is currently not on mechanical ventilation. RASS scale (-4) is deep sedation with no response to voice but movement or eye opening to physical stimulation. RASS scale (-5) is unarousable. Patient Monitoring Once the patient has demonstrated a response to the naloxone, continue to monitor respiratory rate, depth, oxygen saturation and end-tidal CO2 (if available) every 15 minutes x 2, then every 30 minutes x 2, then every 1 hour x 1 after each naloxone dose. Consider transfer to ICU if patient respiratory parameters have not improved after 4 naloxone doses. naloxone (NARCAN) injection 0.4 mg(Linked Group 3) 0.4 mg, Intramuscular, EVERY 2 MIN PRN, opioid reversal, Starting on Vanessa 04/19/25 at 1003, Administer intramuscular if an intravenous route is not available and notify provider when administered. For unintended sedation or respiratory depression if all of the below criteria are met: ~ respiratory rate LESS than or EQUAL to 8. ~ SaO2 less than 92% and or/end-tidal CO2 is greater than 50. ~ the patient is receiving an opioid, has unintended sedation assessed as RASS (-4) or (-5) and patient is currently not on mechanical ventilation. RASS scale (-4) is deep sedation with no response to voice but movement or eye opening to physical stimulation. RASS scale (-5) is unarousable. Patient Monitoring Once the patient has demonstrated a response to the naloxone, continue to monitor respiratory rate, depth, oxygen saturation and end-tidal CO2 (if available) every 15 minutes x 2, then every 30 minutes x 2, then every 1 hour x 1 after each naloxone dose. Consider transfer to ICU if patient respiratory parameters have not improved after 4 naloxone doses. ondansetron (ZOFRAN ODT) ODT tab 4 mg(Linked Group 4) 4 mg, Oral, EVERY 6 HOURS PRN, nausea/vomiting - 1st line, Starting on Wed04/18/25 at 2318, This is Step 1 of nausea and vomiting management. If nausea not resolved in 15 minutes, go to Step 2 prochlorperazine (COMPAZINE). With dry hands, peel back foil backing and gently remove tablet. Do not push oral disintegrating tablet through foil backing. Administer immediately on tongue and oral disintegrating tablet dissolves in seconds, then swallow with saliva. Liquid not required. ondansetron (ZOFRAN) injection 4 mg(Linked Group 4) 4 mg, Intravenous, EVERY 6 HOURS PRN, nausea/vomiting - 1st line, Administer over 2-5 Minutes, Starting on Wed04/18/25 at 2318, Give IF patient unable to tolerate oral medication. This is Step 1 of nausea and vomiting management. If nausea not resolved in 15 minutes, go to Step 2 prochlorperazine (COMPAZINE). oxyCODONE (ROXICODONE) tablet 5 mg 5 mg, Oral, EVERY 4 HOURS PRN, severe pain, IF pain not managed with non-pharmacological and non-opioid interventions, Starting on Wed04/18/25 at 2318, May use concomitant with non-opioid analgesics. oxyCODONE IR (ROXICODONE) half-tab 2.5 mg 2.5 mg, Oral, EVERY 4 HOURS PRN, moderate pain, IF pain not managed with non-pharmacological and non-opioid interventions, Starting on Wed04/18/25 at 2318, May use concomitant with non-opioid analgesics. phenazopyridine (PYRIDIUM) tablet 100 mg 100 mg, Oral, 3 TIMES DAILY PRN, urinary tract discomfort, Starting on Vanessa 04/19/25 at 1049 prochlorperazine (COMPAZINE) injection 10 mg(Linked Group 5) 10 mg, Intravenous, EVERY 6 HOURS PRN, nausea/vomiting - 2nd line, Administer over 1-2 Minutes, Starting on Wed04/18/25 at 2318, IF patient unable to tolerate oral medication. This is Step 2 of nausea and vomiting management. Give if nausea not resolved 15 minutes after giving ondansetron (ZOFRAN). prochlorperazine (COMPAZINE) tablet 10 mg(Linked Group 5) 10 mg, Oral, EVERY 6 HOURS PRN, nausea/vomiting - 2nd line, Starting on Wed04/18/25 at 2318, This is Step 2 of nausea and vomiting management. Give if nausea not resolved 15 minutes after giving ondansetron (ZOFRAN). senna-docusate (SENOKOT-S/PERICOLACE) 8.6-50 MG per tablet 1 tablet(Linked Group 6) 1 tablet, Oral, 2 TIMES DAILY PRN, constipation, Starting on Wed04/18/25 at 2318, If no bowel movement in 24 hours, increase to 2 tablets by mouth. IF more than 1 constipation PRN medication is ordered, administer step-haskins as indicated, moving to the next step ONLY if prior step ineffective. Step 1: senna-docusate (SENOKOT-S; PERICOLACE) OR bisacodyl (DULCOLAX) EC tablet Step 2: polyethylene glycol (MIRALAX/GLYCOLAX) Step 3: bisacodyl (DULCOLAX) suppository Step 4: enema Hold for loose stools. senna-docusate (SENOKOT-S/PERICOLACE) 8.6-50 MG per tablet 2 tablet(Linked Group 6) 2 tablet, Oral, 2 TIMES DAILY PRN, constipation, Starting on Wed04/18/25 at 2318, IF more than 1 constipation PRN medication is ordered, administer step-haskins as indicated, moving to the next step ONLY if prior step ineffective. Step 1: senna-docusate (SENOKOT-S; PERICOLACE) OR bisacodyl (DULCOLAX) EC tablet Step 2: polyethylene glycol (MIRALAX/GLYCOLAX) Step 3: bisacodyl (DULCOLAX) suppository Step 4: enema Hold for loose stools. sodium chloride 0.9% irrigation (bag) (CANCELED) PRN, Starting on Wed04/18/25 at 2142, Intra-procedure 2142 ($Given - Provider: Tahira Castano MD) Linked Groups Order Group 1: senna-docusate (SENOKOT-S/PERICOLACE) 8.6-50 MG per tablet 1 tabletJump to med 1 tablet, Oral, 2 TIMES DAILY, First dose on Wed04/18/25 at 2330, If no bowel movement in 24 hours, increase to 2 tablets by mouth. Hold for loose stools. Or senna-docusate (SENOKOT-S/PERICOLACE) 8.6-50 MG per tablet 2 tabletJump to med 2 tablet, Oral, 2 TIMES DAILY, First dose on Wed04/18/25 at 2330, Hold for loose stools. Group 2: acetaminophen (TYLENOL) tablet 650 mgJump to med 650 mg, Oral, EVERY 4 HOURS PRN, mild pain, other, and adjunct with moderate or severe pain or per patient request, Starting on Wed04/18/25 at 2318, Alternate with ibuprofen if ordered. Maximum acetaminophen dose from all sources = 75 mg/kg/day not to exceed 4 grams/day. Or acetaminophen (TYLENOL) Suppository 650 mgJump to med 650 mg, Rectal, EVERY 4 HOURS PRN, mild pain, other, and adjunct with moderate or severe pain or per patient request, Starting on Wed04/18/25 at 2318, Alternate with ibuprofen if ordered. Maximum acetaminophen dose from all sources = 75 mg/kg/day not to exceed 4 grams/day. Group 3: naloxone (NARCAN) injection 0.2 mgJump to med 0.2 mg, Intravenous, EVERY 2 MIN PRN, opioid reversal, Starting on Vanessa 04/19/25 at 1003, Administer intravenous route when available and notify provider when administered. For unintended sedation or respiratory depression if all of the below criteria are met: ~ respiratory rate LESS than or EQUAL to 8. ~SaO2 less than 92% and or/end-tidal CO2 is greater than 50. ~ the patient is receiving an opioid, has unintended sedations assessed as RASS (-3), and is currently not on mechanical ventilation. RASS scale moderate (-3) is movement or eye opening to voice but no eye contact. Patient Monitoring Once the patient has demonstrated a response to the naloxone, continue to monitor respiratory rate, depth, oxygen saturation and end-tidal CO2 (if available) every 15 minutes x 2, then every 30 minutes x 2, then every 1 hour x 1 after each naloxone dose. Consider transfer to ICU if patient respiratory parameters have not improved after 4 naloxone doses. Or naloxone (NARCAN) injection 0.4 mgJump to med 0.4 mg, Intravenous, EVERY 2 MIN PRN, opioid reversal, Starting on Vanessa 04/19/25 at 1003, Administer intravenous route when available and notify provider when administered. For unintended sedation or respiratory depression if all of the below criteria are met: ~ respiratory rate LESS than or EQUAL to 8. ~ SaO2 less than 92% and or/end-tidal CO2 is greater than 50. ~ the patient is receiving an opioid, has unintended sedation assessed as RASS (-4) or (-5) and patient is currently not on mechanical ventilation. RASS scale (-4) is deep sedation with no response to voice but movement or eye opening to physical stimulation. RASS scale (-5) is unarousable. Patient Monitoring Once the patient has demonstrated a response to the naloxone, continue to monitor respiratory rate, depth, oxygen saturation and end-tidal CO2 (if available) every 15 minutes x 2, then every 30 minutes x 2, then every 1 hour x 1 after each naloxone dose. Consider transfer to ICU if patient respiratory parameters have not improved after 4 naloxone doses. Or naloxone (NARCAN) injection 0.2 mgJump to med 0.2 mg, Intramuscular, EVERY 2 MIN PRN, opioid reversal, Starting on Vanessa 04/19/25 at 1003, Administer intramuscular if an intravenous route is not available and notify provider when administered. For unintended sedation or respiratory depression if all of the below criteria are met: ~ respiratory rate LESS than or EQUAL to 8. ~SaO2 less than 92% and or/end-tidal CO2 is greater than 50. ~ the patient is receiving an opioid, has unintended sedations assessed as RASS (-3), and is currently not on mechanical ventilation. RASS scale moderate (-3) is movement or eye opening to voice but no eye contact. Patient Monitoring Once the patient has demonstrated a response to the naloxone, continue to monitor respiratory rate, depth, oxygen saturation and end-tidal CO2 (if available) every 15 minutes x 2, then every 30 minutes x 2, then every 1 hour x 1 after each naloxone dose. Consider transfer to ICU if patient respiratory parameters have not improved after 4 naloxone doses. Or naloxone (NARCAN) injection 0.4 mgJump to med 0.4 mg, Intramuscular, EVERY 2 MIN PRN, opioid reversal, Starting on Vanessa 04/19/25 at 1003, Administer intramuscular if an intravenous route is not available and notify provider when administered. For unintended sedation or respiratory depression if all of the below criteria are met: ~ respiratory rate LESS than or EQUAL to 8. ~ SaO2 less than 92% and or/end-tidal CO2 is greater than 50. ~ the patient is receiving an opioid, has unintended sedation assessed as RASS (-4) or (-5) and patient is currently not on mechanical ventilation. RASS scale (-4) is deep sedation with no response to voice but movement or eye opening to physical stimulation. RASS scale (-5) is unarousable. Patient Monitoring Once the patient has demonstrated a response to the naloxone, continue to monitor respiratory rate, depth, oxygen saturation and end-tidal CO2 (if available) every 15 minutes x 2, then every 30 minutes x 2, then every 1 hour x 1 after each naloxone dose. Consider transfer to ICU if patient respiratory parameters have not improved after 4 naloxone doses. Group 4: ondansetron (ZOFRAN ODT) ODT tab 4 mgJump to med 4 mg, Oral, EVERY 6 HOURS PRN, nausea/vomiting - 1st line, Starting on Wed04/18/25 at 2318, This is Step 1 of nausea and vomiting management. If nausea not resolved in 15 minutes, go to Step 2 prochlorperazine (COMPAZINE). With dry hands, peel back foil backing and gently remove tablet. Do not push oral disintegrating tablet through foil backing. Administer immediately on tongue and oral disintegrating tablet dissolves in seconds, then swallow with saliva. Liquid not required. Or ondansetron (ZOFRAN) injection 4 mgJump to med 4 mg, Intravenous, EVERY 6 HOURS PRN, nausea/vomiting - 1st line, Administer over 2-5 Minutes, Starting on Wed04/18/25 at 2318, Give IF patient unable to tolerate oral medication. This is Step 1 of nausea and vomiting management. If nausea not resolved in 15 minutes, go to Step 2 prochlorperazine (COMPAZINE). Group 5: prochlorperazine (COMPAZINE) injection 10 mgJump to med 10 mg, Intravenous, EVERY 6 HOURS PRN, nausea/vomiting - 2nd line, Administer over 1-2 Minutes, Starting on Wed04/18/25 at 2318, IF patient unable to tolerate oral medication. This is Step 2 of nausea and vomiting management. Give if nausea not resolved 15 minutes after giving ondansetron (ZOFRAN). Or prochlorperazine (COMPAZINE) tablet 10 mgJump to med 10 mg, Oral, EVERY 6 HOURS PRN, nausea/vomiting - 2nd line, Starting on Wed04/18/25 at 2318, This is Step 2 of nausea and vomiting management. Give if nausea not resolved 15 minutes after giving ondansetron (ZOFRAN). Group 6: senna-docusate (SENOKOT-S/PERICOLACE) 8.6-50 MG per tablet 1 tabletJump to med 1 tablet, Oral, 2 TIMES DAILY PRN, constipation, Starting on Wed04/18/25 at 2318, If no bowel movement in 24 hours, increase to 2 tablets by mouth. IF more than 1 constipation PRN medication is ordered, administer step-haskins as indicated, moving to the next step ONLY if prior step ineffective. Step 1: senna-docusate (SENOKOT-S; PERICOLACE) OR bisacodyl (DULCOLAX) EC tablet Step 2: polyethylene glycol (MIRALAX/GLYCOLAX) Step 3: bisacodyl (DULCOLAX) suppository Step 4: enema Hold for loose stools. Or senna-docusate (SENOKOT-S/PERICOLACE) 8.6-50 MG per tablet 2 tabletJump to med 2 tablet, Oral, 2 TIMES DAILY PRN, constipation, Starting on Wed04/18/25 at 2318, IF more than 1 constipation PRN medication is ordered, administer step-haskins as indicated, moving to the next step ONLY if prior step ineffective. Step 1: senna-docusate (SENOKOT-S; PERICOLACE) OR bisacodyl (DULCOLAX) EC tablet Step 2: polyethylene glycol (MIRALAX/GLYCOLAX) Step 3: bisacodyl (DULCOLAX) suppository Step 4: enema Hold for loose stools. documented in this encounter Care Teams Childcare Teacher Relationship Specialty Start Date End Date No Ref-Primary, Physician PCP - General 04/18/25 documented as of this encounter
--- OUTSIDE RECORDS SUMMARY | 2025-04-18 21:10 | XMS_ITS | Encounter Summary ---
Author Organization [facility] Address [address] [place] [address]. [place] [address] Care Team Providers Care Drop Count Associate Name Role Phone No Ref-Primary, Physician Primary Care Provider Reason for Visit * Auth/Cert (Routine) Specialty Diagnoses / Procedures Referred By Que art Referred To Contact Med Surg Diagnoses Difficulty voiding Sepsis secondary to UTI (H) Procedures UT CYSTOSCOPY,INSERT URETERAL STENT UT UROGRAPHY, RETROGRADE W/WO KUB Cystoscopy, retrogrades, insert stent ureter(s), combined Santos Rodriguez MD [address] [place] [address] Phone: tel: fax: [facility] [address] [place] [address] Phone: tel: fax: Referral ID Status Reason Start Date Expiration Date Visits Re quested Visits Authorized [id number] 1 1 Encounter Details Date Type Department Care Team (Late st Contact Info) Description 04/18/2025 9:10 PM CDT - 04/18/2025 9:55 PM CDT Surgery [facility] [address] [place] [address] Tahira Castano MD [address] [address] Cystourethroscopy with left retrograde pyelography, placement of left ureteral stent, intraoperative interpretation of fluoroscopic imaging. Surgery Details Date/Time Status Location OR Service Patient Class Case Class Case Type Trauma Case? 04/18/2025 9:10 PM Posted [facility] OR OR 14 Urology Surgery Admit NEST 2 - Emergent (within 1hr) Panel 1 Procedure LRB Anes Op Region Wound Class Comments Cystourethroscopy with left retrograde pyelography, placement of left ureteral stent, intraoperative interpretation of fluoroscopic imaging. Left General Urethra II-Clean Contaminated Surgeon Surgeon Role Service Panel Tahira Castano MD Primary Urology 1 documented in this encounter Social History Tobacco Use Types Packs/Day Years [...] Answer Date Recorded Do you have housing? (Housin g is defined as stable permanent housing and does not include staying outside in a car, in a tent, in an abandoned building, in an overnight mcc, or couch-surfing.) Yes 04/19/2025 Are you worried [...] Sign Reading Time Taken Comments Blood Pressure 103/66 04/18/2025 9:55 PM CDT Pulse 76 04/18/2025 9:55 PM CDT Temperature 37.2 C (99 F) 04/18/2025 9:55 PM CDT Respiratory Rate 16 04/18/2025 9:55 PM CDT Oxygen Saturation 100% 04/18/2025 9:55 PM CDT Inhaled Oxygen Concentration - - Weight 56.7 kg (125 lb) 04/18/2025 9:22 PM CDT Height 152 cm (4' 11.84) 04/18/2025 9:22 PM CDT Body Mass Index 24.71 04/18/2025 9:22 PM CDT documented in this encounter Progress Notes * Shakira Wade PA-C - 04/19/2025 10:35 AM CDT [facility] Urology Progress Note Entirety of her visit is conducted with the aid of a video [employer] building attendant. Assessment and Plan: Assessment: POD 1 Cystourethroscopy [...] - Will continue following. Shakira Wade PA-C [facility] [phone] Interval History: Doing okay. Having quite a bit of [id number] when urinating. Also endorses hematuria. Denies any fevers or chills overnight, but endorses quite a few dreams, diaphoresis, and sleeping poorly.Tmax 99. No tachycardia. Blood pressure remains soft. On IV Zosyn. Per report, outside cultures show E. coli. Still do not have images from outside hospital. WBC 8.6 (11.4). Hemoglobin 9.7. Sdkgcmlmu32. Creatinine 0.48 EGFR greater than 90. Does [...] 0.4 mg 0.4 mg Intravenous Q2 Min PRSantos Stokes MD Or naloxone (NARCAN) injection 0.2 mg 0.2 mg Intramuscular Q2 Min PRSantos Stokes MD Or naloxone (NARCAN) injection 0.4 mg 0.4 mg Intramuscular Q2 Min PRSantos Stokes MD ondansetron (ZOFRAN ODT) ODT tab 4 [...] mg 10 mg Oral Q6H PRN Aviles, Trisha Terry PA-C senna-docusate (SENOKOT-S/PERICOLACE) 8.6-50 MG per tablet 1 tablet 1 tablet Oral BID PRN Aviles, Trisha Terry PA-C Or senna-docusate (SENOKOT-S/PERICOLACE) 8.6-50 MG per tablet 2 tablet 2 tablet Oral BID PRN Aviles, Trisha Terry PA-C senna-docusate (SENOKOT-S/PERICOLACE) 8.6-50 MG per tablet 1 tablet 1 tablet Oral BID Aviles, Trisha Terry PA-C 1 tablet at 04/19/25 0953 Or senna-docusate (SENOKOT-S/PERICOLACE) 8.6-50 MG per tablet 2 tablet 2 tablet Oral BID Aviles, Trisha Terry PA-C Physical Exam: Vitals were [...] Ivett Alexander as part of a shared [employer]/PA visit. I personally reviewed the vital signs, [...] this patient including over 30 minutes with building attendant, review of prior records, documentation, coordination of care Rigoberto Cody MD Date of Service (when I saw the patient): 04/19/25 * Gagandeep Gates MD - 04/19/2025 8:10 AM CDT [facility] Medicine Progress Note - Hospitalist Service Date of Admission: 04/18/2025 Primary Care Physician Physician No Ref-Primary CONSULTANTS: urology Assessment & Plan Ivett Alexander is a 49 year old female with no significant PMH who presents as a direct admit from [facility] ED due to concern for infected kidney stone with e.coli bacteremia. Discussed with ED physician from [facility], pt presented 4 days ago with episode [...] (Unfortunately no records avail on CareEverywhere from [facility]) but per report was an e coli. Since discharge, pt has been c/o intermittent chills and rigors with nausea and vomiting. Denies any urinary or GI bleeding. ON day of admission, [facility] lab received +Blood culture for e.coli and her urine cx also grew out e.coli so she was called to go to a facility that has urology but went back to [facility] again. She was sent to [facility] for ongoing urology support. Per ED [...] ED (will need to get sensitivities from [facility]) , I called [facility] micro lab 04/19. Transition to oral antibiotics [...] trending down Discussed plan of care with [facility] microlab for culture sensitivities, nursing, social work/case [...] for Discharge: Anticipated Tomorrow if looking better Gagandepe Gates MD Hospitalist Service [facility] Securely message with [employer] (more info) Text page via [facility] Paging/Directory Interval History Patient new to me. [...] be read by a radiologist or a [facility] non-radiologist provider. Procedures: cystoscopy with stenting 04/18 I have personally have reviewed the patient's most up to date radiologic exams, labs, orders, and medications myself documented in this encounter H&P Notes * Trisha Aviles PA-C - 04/18/2025 9:25 PM CDT [facility] History and Physical - Hospitalist Service Date of Admission: 04/18/2025 Assessment & Plan Ivett Alexander is a 49 year old female with no significant PMH who presents as a direct admit from [facility] ED due to concern for infected kidney stone with e.coli bacteremia. Discussed with ED physician from [facility], pt presented 4 days ago with episode [...] (Unfortunately no records avail on CareEverywhere from [facility]) Since discharge, pt has been c/o intermittent chills and rigors with nausea and vomiting. Denies any urinary or GI bleeding. Today, their lab received +Blood culture for e.coli and her urine cx also grew out e.coli so she was called to go to a facility that has urology but went back to [facility] again. Per ED MD, pt reports nausea, [...] need to go straight to OR from [facility]. Will see and admit when arrives to [...] ED (will need to get sensitivities from [facility]) - IVF - NPO - Pain control [...] eat Will need to get sensitivities from [facility] D/w Dr. Hu Diet: NPO DVT Prophylaxis: SCDs Hines Catheter: Not present Lines: None Cardiac Monitoring: ACTIVE order. Indication: Procedural area Code Status: FULL Clinically Significant Risk Factors Present on Admission Disposition Plan Medically Ready for Discharge: Anticipated in 2-4 Days The patient's care was discussed with the patient via building attendant Trisha Aviles PA-C Hospitalist Service [facility] Securely message with [employer] (more info) Text page via [facility] Paging/Directory Chief Complaint Abd/flank pain, rigors, chills History is obtained from the patient History of Present Illness Ivett Alexander is a 49 year old female with no significant PMH who presents as a direct admit from [facility] ED due to concern for infected kidney stone with e.coli bacteremia. Discussed with ED physician from [facility], pt presented 4 days ago with episode [...] (Unfortunately no records avail on CareEverywhere from [facility]) Today, their lab received +Blood culture for e.coli and her urine cx also grew out e.coli so she was called to go to a facility that has urology but went back to [facility] again. Per ED MD, pt reports nausea, [...] History Nasal [place] a child in [place] Left oophorectomy Prior to Admission Medications None [...] who was discharged from the ER in [place] a few days ago with Keflex. Today she wascontacted that the results of her blood and urine cultures returned positive (E. Coli). In the ER at [facility] she was nauseous and vomiting. She was also noted to have acute anemia and thrombocytopenia- a change from her labs a few days prior. CT was performed at the outside hospital which revealed persistence of her left ureteral stone and no other abnormalities. Given concern for bacteremia and potentially developing DIC, she was transferred to [facility] for emergent left ureteral stent placement. Past [...] placement forimage troubleshooting. I will perform a contract administrative assistant film and retrograde pyelogram during the case to confirm the presence of obstruction on this side. Plan: - To OR emergently for cystoscopy, left retrograde pyelogram, and left ureteral stent placement - Continue antibiotics - Plan for outpatient stone management in 2-3 weeks once her infection has been adequately treated. Tahira Castano MD Reconstructive Urology [facility] Physicians documented in this encounter Miscellaneous Notes * Plan of Care - Sherrill Tracy RN - 04/19/2025 10:50 PM CDT Shift [id number] VSS. A&Ox4. On RA. On IV ceftriaxone. [...] round/check completed Taken 04/19/2025 1750 by Sherrill Tracy, RN Safety Promotion/Fall Prevention: activity supervised assistive device/personal items within reach clutter free environment maintained safety round/check completed Taken 04/19/2025 1525 by Sherrill Tracy, RN Safety Promotion/Fall Prevention: safety round/check completed [...] Documentation Taken 04/19/2025 2240 by Sherrill Tracy RNsupervisor inspection department Interventions: rest Taken 04/19/2025 1906 by Sherrill Tracy RNsupervisor inspection department Interventions: medication (see MAR) Taken 04/19/2025 1750 by Sherrill Tracy RNsupervisor inspection department Interventions: rest Goal: Readiness for Transition of [...] Taken 04/19/2025 1100 by Ammy Zaragoza RN Safety Promotion/Fall Prevention: [...] Anabelle Melchor - 04/19/2025 8:58 AM CDT Night Warehouse Manager Admission Medication History Admission medication history is complete. The information provided in this note is only as accurateas the sources available at the time of the update. Information Source(s): Patient via in-person Pertinent Information: NA Changes made to [employer]OOK[employer] medication list: Added: None Deleted: None Changed: [...] Medication history and patient interview completed by manager of pharmacy/student or pre-admitting RN. Reviewed by pharmacist, including [facility] dispense records, [facility] Care Everywhere, and chart review. Jennifer Hernandez, [...] Manage Fall Risk Recent Flowsheet Documentation Taken 04/19/202514 by Rosa Kraus RN Safety Promotion/Fall Prevention: clutter free environment maintained lighting adjusted nonskid shoes/slippers when out of bed Intervention: Prevent Skin Injury Recent Flowsheet Documentation Taken 04/19/202514 by Rosa Kraus RN Body Position: position changed independently Intervention: Prevent and Manage VTE (Venous Thromboembolism) Risk Recent Flowsheet Documentation Taken 04/19/202514 by Rosa Kraus RN VTE Prevention/Management: SCDs on (sequential compression devices) Intervention: Prevent Infection Recent Flowsheet Documentation Taken 04/19/202514 by Rosa Kraus RN Infection Prevention: hand hygiene promoted rest/sleep promoted single patient room provided Goal: Optimal Comfort and Wellbeing Outcome: Progressing Goal: Readiness for Transition of Care Outcome: Progressing * Plan of Care - Sherrill Tracy RN - 04/18/2025 11:00 PM CDT Assigned [id number] Pt in PACU Pt notes reviewed. Ready for transfer to [facility]. Goal Outcome Evaluation: Plan of Care Reviewed [...] confirm correct patient, procedure and laterality. A 22-Haitian cystoscope was inserted into a well lubricated urethra. The urethra was unremarkable. The bladder was free of tumors, stones or diverticuli. The media was clear. Bilateral ureteral orifices were orthotopic. A glidewire was advanced into the left renal pelvis with the aid of a 5-Haitian open ended ureteral catheter. A retrograde pyelogram [...] been treated Tahira Castano MD Reconstructive Urology [facility] Physicians documented in this encounter Plan of Treatment Pending Results Name Type Priority Associated Diagnoses Date /Time Urine Culture Microbiology STAT 5 1:08 AM CDT Blood Culture Peripheral blood [...] BLOOD ORDERABLES Fi nal Result [facility] [address] Lab (1st floor, no room number) [place] [address] * (ABNORMAL) RBC and Platelet Morphology (04/19/2025 7:12 AM CDT) Pathologist [facility] RBC Morphology Confirmed RBC Indices 04/19/2025 9:34 AM CDT [facility] Platelet Assessment Automated Count Confirmed. Platelet morphology is normal. Automated Count Confirmed. Platelet morphology is normal. RENATA 04/19/2025 9:34 AM CDT [facility] Elliptocytes Slight(A) None Seen RENATA 04/19/2025 9:34 AM CDT [facility] Reactive Lymphocytes Present(A) None Seen RENATA 04/19/2025 9:34 AM CDT [facility] Teardrop Cells Slight(A) None Seen RENATA 04/19/2025 9:34 AM CDT [facility] Blood STRUCTURE OF LEFT HAND / Unknown Venipuncture / Unknown 04/19/2025 7:12 AM CDT 04/19/2025 7:19 AM CDT Trisha Aviles PA-C LAB - BLOOD ORDERABLES Fi nal Result LABORATORY [facility] [address] Lab (1st floor, no room number) [place] [phone] * (ABNORMAL) CBC with platelets and differential (04/19/2025 7:12 AM CDT) Pathologist [facility] WBC Count 8.6 4.0 - 11.0 10e3/uL [...] LAB - BLOOD ORDERABLES Fi nal Result [facility] [address] Lab (1st floor, no room number) [place] [phone] * Magnesium (04/19/2025 7:12 AM CDT) Magnesium 2.2 1.7 - 2.3 mg/dL 04/19/2025 7:48 AM CDT LABORATORY Blood STRUCTURE OF LEFT HAND / Unknown Venipuncture / Unknown 04/19/2025 7:12 AM CDT 04/19/2025 7:19 AM CDT Gagandeep Gates MD LAB - BLOOD ORDERABLES Fin al Result [facility] [address] Lab (1st floor, no room number) [place] [phone] * (ABNORMAL) Bilirubin direct (04/19/2025 7:12 AM CDT) Bilirubin Direct 0.31(H) 0.00 - 0.30 mg/dL 04/19/2025 7:48 AM CDT [facility] LAB[facility] Comment:As of 25, refer ence ranges and trending lines may vary depending on the testing location. Blood STRUCTURE OF LEFT HAND / Unknown Venipuncture / Unknown 04/19/2025 7:12 AM CDT 04/19/2025 7:19 AM CDT Trisha Aviles PA-C LAB - BLOOD ORDERABLES Fi nal Result LABORATORY [facility] [address] Lab (1st floor, no room number) [place] [address], [facility] * (ABNORMAL) Comprehensive metabolic panel (04/19/2025 7:12 AM CDT) Pathologist [facility] Sodium 136 135 - 145 mmol/L 04/19/2025 7:48 AM CDT LABORATORY Potassium 4.3 3.4 - 5.3 mmol/L 04/19/2025 7:48 AM CDT LABORATORY Carbon Dioxide (CO2) 22 22 - 29 mmol/L 04/19/2025 7:48 AM CDT LABORATORY Anion Gap 7 7 - 15 mmol/L 04/19/2025 7:48 AM CDT LABORATORY Urea Nitrogen 10.0 6.0 - 20.0 mg/dL 04/19/2025 7:48 AM CDT LABORATORY Creatinine 0.48(L) 0.51 - 0.95 mg/dL 04/19/2025 7:48 AM CDT LABORATORY GFR Estimate >90 >60 mL/min/1.7 3m2 04/19/2025 7:48 AM CDT LABORATORY Comment:eGFR calculated usin 2020 CKD-EPI equation. Calcium 7.8(L) 8.8 - 10.4 mg/dL 04/19/2025 7:48 AM CDT LABORATORY Chloride 107 98 - 107 mmol/L 04/19/2025 7:48 AM CDT LABORATORY Glucose 151(H) 70 - 99 mg/dL 04/19/2025 7:48 AM CDT LABORATORY Alkaline Phosphatase 107 40 - 150 U/L 04/19/2025 7:48 AM CDT LABORATORY AST 32 0 - 45 U/L 04/19/2025 7:48 AM CDT LABORATORY ALT 65(H) 0 - 50 U/L 04/19/2025 7:48 AM CDT LABORATORY Protein Total 5.4(L) 6.4 - 8.3 [...] LAB - BLOOD ORDERABLES Fi nal Result [facility] Lab [address] Lab (1st floor, no room number) [place] [phone] * Magnesium (04/18/2025 11:33 PM CDT) Magnesium 2.1 1.7 - 2.3 mg/dL 04/19/2025 12:59 AM CDT [facility] LAB[facility]AT[facility] Blood STRUCTURE OF RIGHT HAND / Unknown Venipuncture / Unknown 04/18/2025 11:33 PM CDT 04/18/2025 11:37 PM CDT Trisha EASLEY-C LAB - BLOOD ORDERABLES Fi nal Result [facility] Lab [address] Lab (1st floor, no room number) [place] [phone] * (ABNORMAL) CBC with platelets and differential [...] NRBCs 0.0 10e3/uL 04/19/2025 12:03 AM CDT LABORATORY Blood STRUCTURE OF RIGHT HAND / Unknown Venipuncture / Unknown 04/18/2025 11:33 PM CDT 04/18/2025 11:37 PM CDT Trisha Searsu PA-C LAB - BLOOD ORDERABLES Fi nal Result [facility] [address] Lab (1st floor, no room number) [place] [address] * (ABNORMAL) Fibrinogen activity (04/18/2025 11:33 PM CDT) Fibrinogen Activity 681(H) 170 - 510 mg/dL 04/19/2025 12:05 AM CDT LABORATORY Blood STRUCTURE OF RIGHT HAND / Unknown Venipuncture / Unknown 04/18/2025 11:33 PM CDT 04/18/2025 11:37 PM CDT Trisha Searsu PA-C LAB - BLOOD ORDERABLES Fi nal Result [facility] Lab [address] Lab (1st floor, no room number) [place] [address] * Partial thromboplastin time (04/18/2025 11:33 PM CDT) aPTT 34 22 - 38 Seconds 04/19/2025 12:03 AM CDT LABORATORY Blood STRUCTURE OF RIGHT HAND / Unknown Venipuncture / Unknown 04/18/2025 11:33 PM CDT 04/18/2025 11:37 PM CDT Trisha Ray Aviles PA-C LAB - BLOOD ORDERABLES Fi nal Result [facility] [address] Lab (1st floor, no room number) [place] [address] * INR (04/18/2025 11:33 PM CDT) INR 0.95 0.85 - 1.15 04/19/2025 12:03 AM CDT LABORATORY PT 12.8 11.8 - 14.8 Seconds 04/19/2025 12:03 AM CDT LABORATORY Blood STRUCTURE OF RIGHT HAND / Unknown Venipuncture / Unknown 04/18/2025 11:33 PM CDT 04/18/2025 11:37 PM CDT Trisha Aviles PA-C LAB - BLOOD ORDERABLES Fi nal Result LABORATORY [facility] [address] [facility] Lab (1st floor, no room number) [place] [phone] * (ABNORMAL) Comprehensive metabolic panel (04/18/2025 11:33 PM CDT) Pathologist [facility] Sodium 136 135 - 145 mmol/L 04/19/2025 12:05 AM CDT LABORATORY Potassium 4.1 3.4 - 5.3 mmol/L 04/19/2025 12:05 AM T LABORATORY Carbon Dioxide (CO2) 21(L) 22 - 29 mmol/L 04/19/2025 12:05 AM T LABORATORY Anion Gap 10 7 - 15 mmol/L 04/19/2025 12:05 AM CDT LABORATORY Urea Nitrogen 9.2 6.0 - 20.0 mg/dL 04/19/2025 12:05 AM T LABORATORY Creatinine 0.49(L) 0.51 - 0.95 mg/dL 04/19/2025 12:05 AM CDT LABORATORY GFR Estimate >90 >60 mL/min/1.7 3m2 04/19/2025 12:05 AM T LABORATORY Comment:eGFR calculated us2020 CKD-EPI equation. Calcium 7.9(L) 8.8 - 10.4 mg/dL 04/19/2025 12:05 AM T LABORATORY Chloride 105 98 - 107 mmol/L 04/19/2025 12:05 AM CDT [facility] Glucose 183(H) 70 - 99 mg/dL 04/19/2025 12:05 AM CDT [facility] Alkaline Phosphatase 128 40 - 150 U/L 04/19/2025 12:05 AM CDT [facility] AST 42 0 - 45 U/L 04/19/2025 12:05 AM CDT [facility] ALT 69(H) 0 - 50 U/L [...] LAB - BLOOD ORDERABLES Fi nal Result [facility] [address] Lab (1st floor, no room number) [place] [address] * RBC and Platelet Morphology (04/18/2025 10:14 PM CDT) RBC Morphology Confirmed RBC Indices 04/19/2025 3:06 AM CDT [facility] Platelet Assessment Automated Count Confirmed. Platelet morphology is normal. Automated Count Confirmed. Platelet morphology is normal. [facility] 04/19/2025 3:06 AM CDT [facility] Blood STRUCTURE OF LEFT UPPER LIMB / Unknown Venipuncture / Unknown 04/18/2025 10:14 PM CDT 04/18/2025 10:23 PM CDT Trisha Aviles PA-C LAB - BLOOD ORDERABLES Fi nal Result [facility] [address] Lab (1st floor, no room number) [place] [address] * Morphology Tracking (04/18/2025 10:14 PM CDT) Blood STRUCTURE OF LEFT UPPER LIMB / Unknown Venipuncture / Unknown 04/18/2025 10:14 PM CDT 04/18/2025 10:23 PM CDT Trisha Aviles PA-C LAB - BLOOD ORDERABLES Fi nal Result [facility] [address] Lab (1st floor, no room number) [place] [address] * (ABNORMAL) Reticulocyte count (04/18/2025 10:14 PM [...] ORDERABLES Fi nal Result Performing Organization Address City/[facility]/ZIP Co de Phone Number [facility] [address] Lab (1st floor, no room number) [place] [address] * (ABNORMAL) CBC with platelets and differential [...] NRBCs 0.0 10e3/uL 04/19/2025 12:00 AM CDT LABORATORY Blood STRUCTURE OF LEFT UPPER LIMB / Unknown Venipuncture / Unknown 04/18/2025 10:14 PM CDT 04/18/2025 10:23 PM CDT Trisha Aviles PA-C LAB - BLOOD ORDERABLES Fi nal Result LABORATORY [facility] [address] Lab (1st floor, no room number) [place] [address], [facility] * Bld morphology pathology review (04/18/2025 10:14 PM CDT) Final Diagnosis Peripheral blood for morphology: - Mild normochromic, normocytic anemia - Slight mature neutrophilia - Marked thrombocytopenia 04/19/2025 4:09 PM CDT [facility] LAB at 1609 CDT Comment The clinical scenario of kidney stone and E. coli bacteremia is noted. Coagulation studies are normal and there is no evidence of a microangiopathic blood picture. The platelet count has improved slightly in the last few hours. 04/19/2025 4:09 PM CDT [facility] Clinical Information R/O DIC 04/19/2025 4:09 PM CDT [facility] Peripheral Smear ERYTHROCYTES: The [...] than 50: Marked thrombocytopenia 04/19/2025 4:[address] [facility] Peripheral Hematologic Data CBC with [...] 0.2 <=0.4 10e3/uL Normal 04/19/2025 4:[address] [facility] Performing Labs The technical component of this testing was [facility] at [facility] 04/19/2025 4:09 PM CDT [facility] Blood BLOOD SPECIMEN [...] smear report and are necessary for interpretation. Trisha BERNAL - BEMIKE AP Final Res ult [facility] Lab [address], [address] [place] [address] * Lactic Acid Whole Blood with 1X Repeat in 2 HR when >2 (04/18/2025 10:14 PM CDT) Lactic Acid, Initial 0.9 0.7 - 2.0 mmol/L 04/18/2025 10:25 PM CDT LABORATORY Blood STRUCTURE OF LEFT UPPER LIMB / Unknown Venipuncture / Unknown 04/18/2025 10:14 PM CDT 04/18/2025 10:23 PM CDT Raciel Martin MD LAB - BLOOD ORDERABLES Final Result LABORATORY [facility] [address] Lab (1st floor, no room number) [place] [address], [facility] * XR Surgery YOSELIN L/T 5 Min Fluoro (04/18/2025 9:44 PM CDT) Narrative RADIANT - 04/18/2025 9:45 PM CDT This exam was marked as non-reportable because it will not be read by a radiologist or a [facility] non-radiologist provider. us Tahira Castano MD IMG DIAGNOSTIC IMAGING ORDERA BLES Final Result RADIANT * Lactate Dehydrogenase (04/18/2025 8:53 PM CDT) Pathologist [facility] Lactate Dehydrogenase 224 0 - 250 U/L 04/18/2025 10:13 PM CDT LABORATORY Blood STRUCTURE OF LEFT UPPER LIMB / Unknown Venipuncture / Unknown 04/18/2025 8:53 PM CDT 04/18/2025 8:58 PM CDT Trisha Aviles PA-C LAB - BLOOD ORDERABLES Fi nal Result LABORATORY [facility] [address] Lab (1st floor, no room number) [place] [address] * (ABNORMAL) Hepatic function panel (04/18/2025 8:53 PM CDT) Pathologist [facility] Protein Total 5.6(L) 6.4 - 8.3 g/dL 04/18/2025 10:13 PM CDT [facility] LABORATORY Albumin 2.9(L) 3.5 - 5.2 g/dL 04/18/2025 10:13 PM CDT LABORATORY Bilirubin Total 1.3(H) <=1.2 mg/dL 04/18/2025 10:13 PM CDT [facility] LABORATORY Alkaline Phosphatase 136 40 - 150 U/L 04/18/2025 10:13 PM CDT [facility] LABORATORY AST 36 0 - 45 U/L 04/18/2025 10:13 PM CDT [facility] LABORATORY ALT 65(H) 0 - 50 U/L 04/18/2025 10:13 PM CDT [facility] LABORATORY Bilirubin Direct 0.44(H) 0.00 - 0.30 mg/dL 04/18/2025 10:13 PM CDT LABORATORY Comment:As of 25, refer ence ranges and trending lines may vary depending on the testing location. Blood STRUCTURE OF LEFT UPPER LIMB / Unknown Venipuncture / Unknown 04/18/2025 8:53 PM CDT 04/18/2025 8:58 PM CDT Trisha Aviles PA-C LAB - BLOOD ORDERABLES Fi nal Result [facility] [address] Lab (1st floor, no room number) [place] [address] * RBC and Platelet Morphology (04/18/2025 8:53 PM CDT) RBC Morphology Confirmed RBC Indices 04/18/2025 9:47 [...] BLOOD ORDERABLES Final Result Performing Organization Address [facility]/ZIP Co de Phone Number [facility] Lab [address] [facility] Lab (1st floor, no room number) [place] [address] * Adult Type and Screen (04/18/2025 8:53 PM CDT) ABO/RH(D) B POS 04/18/2025 8:35 PM CDT [...] BLOOD BANK TEST O RDER Final Result BLOOD BANK [address] [place] [address], [facility] * (ABNORMAL) Basic metabolic panel (04/18/2025 8:53 PM CDT) Pathologist [facility] Sodium 137 135 - 145 mmol/L 04/18/2025 9:23 PM CDT LABORATORY Potassium 4.2 3.4 - 5.3 mmol/L 04/18/2025 9:23 PM CDT LABORATORY Chloride 107 98 - 107 mmol/L 04/18/2025 9:23 PM CDT LABORATORY Carbon Dioxide (CO2) 21(L) 22 - 29 mmol/L 04/18/2025 9:23 PM CDT LABORATORY Anion Gap 9 7 - 15 mmol/L 04/18/2025 9:23 PM CDT LABORATORY Urea Nitrogen 10.2 6.0 - 20.0 mg/dL 04/18/2025 9:23 PM CDT LABORATORY Creatinine 0.60 0.51 - 0.95 mg/dL 04/18/2025 9:23 PM CDT LABORATORY GFR Estimate >90 >60 mL/min/1.7 3m2 04/18/2025 9:23 PM CDT LABORATORY Comment:eGFR calculated usin 2020 CKD-EPI equation. Calcium 8.0(L) 8.8 - 10.4 mg/dL 04/18/2025 9:23 PM CDT LABORATORY Glucose 106(H) 70 - 99 mg/dL 04/18/2025 9:23 PM CDT LABORATORY Blood STRUCTURE OF LEFT UPPER LIMB / Unknown Venipuncture / Unknown 04/18/2025 8:53 PM CDT 04/18/2025 8:58 PM CDT us Raciel Martin MD LAB - BLOOD ORDERABLES Final Result LABORATORY [facility] [address] Lab (1st floor, no room number) [place] [address], [facility] * (ABNORMAL) Fibrinogen activity (04/18/2025 8:53 PM CDT) Pathologist [facility] Fibrinogen Activity 689(H) 170 - 510 mg/dL 04/18/2025 9:44 PM CDT RH LABORATORY Blood STRUCTURE OF LEFT UPPER LIMB / Unknown Venipuncture / Unknown 04/18/2025 8:53 PM CDT 04/18/2025 8:58 PM CDT Raciel Martin MD LAB - BLOOD ORDERABLES Final Result LABORATORY [facility] [address] Lab (1st floor, no room number) [place] [address] * Partial thromboplastin time (04/18/2025 8:53 PM CDT) aPTT 35 22 - 38 Seconds 04/18/2025 9:44 PM CDT RH LABORATORY Blood STRUCTURE OF LEFT UPPER LIMB / Unknown Venipuncture / Unknown 04/18/2025 8:53 PM CDT 04/18/2025 8:58 PM CDT Raciel Martin MD LAB - BLOOD ORDERABLES Final Result LABORATORY [facility] [address] Lab (1st floor, no room number) [place] [address] * INR (04/18/2025 8:53 PM CDT) INR 1.01 0.85 - 1.15 04/18/2025 9:44 PM CDT RH LABORATORY PT 13.4 11.8 - 14.8 Seconds 04/18/2025 9:44 PM CDT RH LABORATORY Blood STRUCTURE OF LEFT UPPER LIMB / Unknown Venipuncture / Unknown 04/18/2025 8:53 PM CDT 04/18/2025 8:58 PM CDT Raciel Martin MD LAB - BLOOD ORDERABLES Final Result LABORATORY [facility] [address] Lab (1st floor, no room number) [place] [address] * (ABNORMAL) CBC with platelets (04/18/2025 8:53 PM CDT) WBC Count 12.8(H) 4.0 - 11.0 10e3/uL [...] LAB - BLOOD ORDERABLES Final Result LABORATORY [facility] [address] Lab (1st floor, no room number) [place] [address], [facility] documented in this encounter Visit Diagnoses Diagnosis Difficulty voiding Other symptoms involving urinary system documented in this encounter Admitting Diagnoses Diagnosis [...] oral opioid interventions if ordered, Starting on Wed04/18/25 at 2318, May use [...] MAR Action Action Date Dose Rate Site iopamidol 61% (ISOVUE 300) 50 mL + NaCl 0.9% 50 mL PRN, Starting on Wed04/18/25 at 2141, Intra-procedure $Given 04/18/2025 9:41 PM CDT 3 ml given sodium chloride 0.9% irrigation (bag) PRN, Starting on Wed04/18/25 at 2142, Intra-procedure $Given 04/18/2025 9:42 PM CDT 500 mLs documented in this encounter Active and Recently [...] Kraus RN)0952 ($New Bag - Provider: Ammy Zaragoza, VIMAL) senna-docusate (SENOKOT-S/PERICOLACE) 8.6-50 MG per tablet 1 [...] and 1999)0953 ($Given - Provider: Ammy Zaragoza RN)1906 ($Given - Provider: Sherrill Tracy RN) 0800 (Due)1999 (Due) senna-docusate (SENOKOT-S/PERICOLACE) 8.6-50 MG per tablet 2 tablet(Linked Group 1) 2 tablet, Oral, 2 TIMES DAILY, First dose on Wed04/18/25 at 2330, Hold for loose stools. 0024 (See Alternative - Provider: Rosa Kraus RN)0953 (See Alternative - Provider: Ammy Zaragoza, VIMAL)1906 (See Alternative - Provider: Sherrill Tracy RN) 0800 (Due)1999 (Due) Continuous Medication Order 04/18/2025 04/19/2025 04/20/2025 lactated ringers infusion at 125 mL/hr, Intravenous, CONTINUOUS, Starting on Wed04/18/25 at 2330, Until Discontinued 0001 ($New Bag - Provider: Rosa Kraus RN)0730 (Rate/Dose Verify - Provider: Ammy Zaragoza RN)0819 ($New Bag - Provider: Heath Cazares RN)0955 (Paused - Provider: Ammy Zaragoza RN - Comment: abx infusing)1100 (Restarted - Provider: Ammy Zaragoza RN)1530 (Rate/Dose Verify - Provider: Sherrill Tracy [...] mg/kg/day not to exceed 4 grams/day. 190 (See Alternative - Provider: Sherrill Tracy RN) [...] (SUBLIMAZE) after moving to HYDROmorphone (DILAUDID)., PACU 4 ($Given - Provider: Tahira Love RN) HYDROmorphone [...] PRN, nausea/vomiting - 2nd line, Starting on 04/18/25 at 2318, This is Step 2 of [...] 2 TIMES DAILY PRN, constipation, Starting on 04/18/25 at 2318, IF more than 1 constipation [...] stools. documented in this encounter Care Teams Drop Count Associate Relationship Specialty Start Date End Date No Ref-Primary, Physician PCP - General 04/18/25 documented as of this encounter
--- OUTSIDE RECORDS SUMMARY | 2025-04-18 21:24 | XMS_ITS | Encounter Summary ---
Author Organization [place] Address [facility] [place] [address] Care Team Providers Care Manager Fashion Name Role Phone No Ref-Primary, Physician Primary Care Provider Reason for Visit * Auth/Cert (Routine) Specialty Diagnoses / Procedures Referred By Que art Referred To Contact Med Surg Diagnoses Difficulty voiding Sepsis secondary to UTI (H) Procedures HI CYSTOSCOPY,INSERT URETERAL STENT HI UROGRAPHY, RETROGRADE W/WO KUB Cystoscopy, retrogrades, insert stent ureter(s), combined Santos Rodriguez MD [address] [place] [address] Phone: tel: fax: [facility] Medical Surgical [address] [place] [address] Phone: tel: fax: Referral ID Status Reason Start Date Expiration Date Visits Re quested Visits Authorized [id number] 1 1 Encounter Details Date Type Department Care Team (Late st Contact Info) Description 04/18/2025 9:24 PM CDT Anesthesia Event [facility]Op [facility] [address] [place] [address] Raciel Martin MD [facility] ANESTHESIA [id number] [facility] [address] [place], [place] [address] Vik Cazares APRN CRNA Anesthesia Record Procedure Summary Procedure Name Responsible Anesthesiologist Anesthesia Start Time Anesthesia Stop Time Cystourethroscopy with left retrograde pyelography, placement of left ureteral stent, intraoperative interpretation of fluoroscopic imaging. (Left: Urethra) Raciel Martin MD 04/18/25212304/18/252151 Events Date Time Event Comment 04/18/20252044 An Start Anesthesia Star t is defined as when the anesthesia provider assumed care, began anesthesia prep, remained continuously present with the patient, and excludes all time for performing the pre-anesthesia evaluation. The Pre-Anesthesia Evaluation was completed before Anesthesia Start. 2123 An Start Data 2123 AN REASSESS I attest that I have identified and re-evaluated the patient immediately before the induction of anesthesia and I am satisfied that the anesthetic plan is suitable for the patient's condition and procedure. The first vital signs recorded are pre-induction. Vik Cazares APRN LEAD DATABASE ADMINISTRATOR 2126 An Induction 2126 MD Present 2127 An Intubation 2129 Anesthesia Ready for Procedu re 2131 AN INCISION 2131 MD Present 2142 AN Extubation All extubation criteria met prior to removal. 2144 MD Present 2147 an stop data 2151 An Stop Electronically signed by Vik Cazares APRN LEAD DATABASE ADMINISTRATOR on April 18, 2025 9:52 PM Meds Name Total fentaNYL 50 mcg/mL 100 mcg lidocaine 2% 50 mg propofol 10 mg/mL 200 mg phenylephrine (SLICK-SYNEPHRINE) injection 100 mcg dexamethasone (DECADRON) 4 mg/mL 8 mg ondansetron 2 mg/mL 4 mg succinylcholine 20 mg/mL 80 mg ceFAZolin vial 1gm 2 g LR 600 mL * Agents Name O2 N2O Air Exp Sevoflurane Exp Isoflurane Exp Desflurane Ins Sevoflurane Ins Isoflurane Ins Desflurane * Blood No blood administrations on file. Lines, Drains, and Airways Type Details Placement Removal Incision/Surgical Site No Incision; 04/01 06/25; Urethral meatus 04/18/25 0000 by Tahira Urbina RN Peripheral IV 04/18/252038 (pres ent upon arrival); Right; Antecubital fossa; Other hospital 04/18/252038 by Radha Zuniga RN Peripheral IV 04/18/25; 2038 (pres ent upon arrival); Distal, Right, Dorsal; Lower forearm; Other hospital 04/18/252038 by Radha Zuniga RN Peripheral IV 04/18/252148 (plac ed in OR); Anterior, Left; Lower forearm 04/18/252148 by Tahira Love RN documented in this encounter Social History Tobacco Use Types Packs/Day Years Used Date Smoking Tobacco: Never Smokeless Tobacco: Never Food Insecurity Answer Date Recorded Within the [...] Date Recorded Do you have housing? (George g is defined as stable permanent housing and does not include staying outside in a car, in a tent, in an abandoned building, in an overnight usp, or couch-surfing.) Yes 04/19/2025 Are you worried [...] on file documented as of this encounter OR Notes * Anesthesia Postprocedure Evaluation - Raciel Martin MD - 04/18/2025 10:23 PM CDT Patient: Ivett Alexander Procedure: Procedure(s): Cystoscopy, retrogrades, insert stent ureter(s), combined Anesthesia Type: General Note: Disposition: Admission Postop Pain Control: Uneventful Sign Out: Well controlled pain PONV: No Neuro/Psych: Uneventful Sign Out: Acceptable/Baseline neuro status Airway/Respiratory: Uneventful Sign Out: Acceptable/Baseline resp. status CV/Hemodynamics: Uneventful Sign Out: Acceptable CV status Other NRE: NONE DID A NON-ROUTINE EVENT OCCUR? No Last vitals: Vitals Value Taken Time BP 103/70 04/18/25 22:20 Temp 98.96 ??F (37.2 ??C) 04/18/25 22:23 Pulse 69 04/18/25 22:23 Resp 15 04/18/25 22:23 SpO2 99 % 04/18/25 22:23 Vitals shown include unfiled device data. Electronically Signed By: Raciel Martin MD April 18, 2025 10:23 PM * Anesthesia Preprocedure Evaluation - Raciel Martin MD - 04/18/2025 8:35 PM CDT Anesthesia Pre-Procedure Evaluation Patient: Ivett Alexander : 1975 Procedure : Procedure(s): Cystoscopy, retrogrades, insert stent ureter(s), combined No past medical history on file. No past surgical history on file. Not on File Social History Tobacco Use Smoking status: Not on file Smokeless tobacco: Not on file Substance Use Topics Alcohol use: Not on file Wt Readings from Last 1 Encounters: No data found for Wt Anesthesia Evaluation ROS/MED HX ENT/Pulmonary: Neurologic: Cardiovascular: METS/Exercise Tolerance: Hematologic: Comments: Possible DIC thrombocytopenia (+) anemia, Musculoskeletal: GI/Hepatic: Renal/Genitourinary: (+) renal disease, Nephrolithiasis , Endo: Psychiatric/Substance Use: Infectious Disease: Comment: Urosepsis Malignancy: Other: Physical Exam Airway Mallampati: II TM distance: >3 FB Neck ROM: full Mouth opening: >= 4 cm Cardiovascular Rhythm: regular Rate: tachycardia Dental (+) Modest Abnormalities - crowns, retainers, 1 or 2 missing teeth Pulmonary - normal exam Neurological - normal exam She appears awake, alert and oriented x3. Other Findings OUTSIDE LABS: CBC: No results found for: WBC, HGB, HCT, PLT BMP: No results found for: NA, POTASSIUM, CHLORIDE, CO2, BUN, CR, GLC COAGS: No results found for: PTT, INR, FIBR POC: No results found for: BGM, HCG, HCGS HEPATIC: No results found for: ALBUMIN, PROTTOTAL, ALT, AST, GGT, ALKPHOS, BILITOTAL,BILIDIRECT, JAYNE OTHER: No results found for: PH, LACT, A1C, MEGAN, PHOS, MAG, LIPASE, AMYLASE, TSH,T4, T3, CRP, SED Anesthesia Plan ASA Status: 4, emergent NPO Status: ELEVATED Aspiration Risk/Unknown Anesthesia Type: General. Airway: oral. Induction: intravenous. Maintenance: Balanced. Techniques and Equipment: - Monitoring Plan: standard ASA monitoring Consents Anesthesia Plan(s) and associated risks, benefits, and realistic alternatives discussed. Questions answered and patient/operations support representative(s) expressed understanding. - Discussed: anesthesiologist - Discussed with: Senior Quality Engineer, patient - Pt is DNR/DNI Status: no DNR Blood Consent: - Discussed with: fruit stuffer, patient. - Consented: consented to blood products Postoperative Care Pain management: non-narcotic analgesics, plan for postoperative opioid use, multimodal analgesia. Comments: Raciel Martin MD Clinically Significant Risk Factors Present on Admission documented in this encounter Miscellaneous Notes * Anesthesia Care Transfer Note - Vik Cazares APRN CRNA - 04/18/2025 9:52 PM CDT Patient: Ivett Alexander Procedure: Procedure(s): Cystoscopy, retrogrades, insert stent ureter(s), combined Diagnosis: Difficulty voiding [R39.198] Diagnosis Additional Information: No value filed. Anesthesia Type: General Note: Oropharynx: oropharynx clear of all foreign objects Level of Consciousness: awake and drowsy Oxygen Supplementation: face mask Level of Supplemental Oxygen (L/min / FiO2): 8 Independent Airway: airway patency satisfactory and stable Dentition: dentition unchanged Vital Signs Stable: post-procedure vital signs reviewed and stable Report to RN Given: handoff report given Patient transferred to: PACU Handoff Report: Identifed the Patient, Identified the Reponsible Provider, Reviewed the pertinent medical history, Discussed the surgical course, Reviewed Intra-OP anesthesia mangement and issues during anesthesia, Set expectations for post-procedure period and Allowed opportunity for questions andacknowledgement of understanding Vitals: Vitals Value Taken Time BP 98/66 04/18/25 21:50 Temp 98.96 ??F (37.2 ??C) 04/18/25 21:51 Pulse 75 04/18/25 21:51 Resp 14 04/18/25 21:51 SpO2 100 % 04/18/25 21:51 Vitals shown include unfiled device data. Electronically Signed By: Vik Cazares APRN LEAD DATABASE ADMINISTRATOR April 18, 2025 9:52 PM documented in this encounter Plan of Treatment Not on file documented as of this encounter Visit Diagnoses Not on filedocumented in this encounter Administered Medications Inactive Administered Medications - up to 3 most recent administrations Medication Order MAR Action Action Date Dose Rate Site ceFAZolin (ANCEF) 1 g vial to attach to NS 100 ml bag for ADULT or 50 ml bag for PEDS Routine, Intravenous, PRN, Starting on Wed04/18/25 at 0, Anesthesia Intra-op $Given 04/18/2025 9:30 PM CDT 2 g dexAMETHasone (DECADRON) injection Intravenous, PRN, Administer over 1 Minutes, Starting on Wed04/18/25 at 2126, Anesthesia Intra-op $Given 04/18/2025 9:27 PM CDT 8 mg fentaNYL (PF) (SUBLIMAZE) injection Intravenous, PRN, Administer over 3-5 Minutes, Starting on Wed04/18/25 at 2126, Anesthesia Intra-op $Given 04/18/2025 9:40 PM CDT 50 mcg $Given 04/18/2025 9:27 PM CDT 50 mcg lactated ringers infusion Intravenous, CONTINUOUS PRN, Anesthesia Intra-op, Starting on Wed04/18/25 at 2050, Until Wed04/18/25 at 2151 $New Bag 04/18/2025 8:51 PM CDT lidocaine 2% injection (MDV) Intravenous, PRN, Starting on Wed04/18/25 at 2126, Anesthesia Intra-op $Given 04/18/2025 9:27 PM CDT 50 mg ondansetron (ZOFRAN) injection Intravenous, PRN, Administer over 2-5 Minutes, Starting on Wed04/18/25 at 2126, Anesthesia Intra-op $Given 04/18/2025 9:27 PM CDT 4 mg phenylephrine (SLICK-SYNEPHRINE) injection Intravenous, CONTINUOUS PRN, Starting on Wed04/18/25 at 2130, Anesthesia Intra-op $New Bag 04/18/2025 9:30 PM CDT 100 mcg propofol (DIPRIVAN) injection 10 mg/mL vial Intravenous, PRN, Starting on Wed04/18/25 at 2126, Anesthesia Intra-op $Given 04/18/2025 9:27 PM CDT 200 mg succinylcholine (ANECTINE) injection Intravenous, PRN, Starting on Wed04/18/25 at 2126, Anesthesia Intra-op $Given 04/18/2025 9:27 PM CDT 80 mg documented in this encounter Care Teams Manager Fashion Relationship Specialty Start Date End Date No Ref-Primary, Physician PCP - General 04/18/25 documented as of this encounter
--- OUTSIDE RECORDS SUMMARY | 2025-04-20 00:24 | XMS_ITS | Clinical Summary ---
Author Organization [facility] Address [address] [place] [address] Care Team Providers Care Coke Drawer Hand Name Role Phone No Ref-Primary, Physician Primary Care Provider Allergies No known active allergies Medications No known medications Active Problems Problem Noted Date Diagnosed Date Sepsis secondary to UTI 04/18/2025 Encounters Date Type Department Care Team Description 04/18/2025 9:24 PM CDT Anesthesia Event [facility] PeriOp Services [address] [place] [address] Raciel Martin MD Webb, Kyle S, APRN CRNA 04/18/2025 9:10 PM CDT - 04/18/2025 9:55 PM [facility] [address] [place] [address] Tahira Castano MD Cystourethroscopy with left retrograde pyelography, placement of left ureteral stent, intraoperative interpretation of fluoroscopic imaging. 04/18/2025 8:30 PM CDT - Present Hospital Encounter [facility] 3 Medical Surgical [address] [place] [address] Tahira Castano MD Khan, Raza A, MD from Last 3 Months Social History Tobacco Use Types Packs/Day Years [...] in an abandoned building, in an overnight group home, or couch-surfing.) Yes 04/19/2025 Are you worried [...] Mass Index 24.71 04/18/2025 9:22 PM CDT Plan of Treatment Health Maintenance Due Date Last Done Comments ADVANCE CARE PLANNING 1975 ANNUAL REVIEW OF HM ORDERS 1975 CT COLONOGRAPHY 1975 FIT 1975 FLEX SIG 1975 MAMMO SCREENING 1975 sDNA (Cologuard) 1975 YEARLY PREVENTIVE VISIT 1978 COLONOSCOPY 1985 COLORECTAL CANCER SCREENING 1985 HIV SCREENING 1990 HEPATITIS C SCREENING 1993 HEPATITIS B VACCINE (1 of 3 - 19+ 3-dose series) 1994 LIPID 2015 PAP 04/18/2024 04/18/2021 COVID-19 VACCINE ( season) 2024 11/15/2021, 03/27/2021, 02/27/2021 PHQ-2 (once per calendar year) 2024 INFLUENZA VACCINE (Season Ended) 2025 11/15/2017, 10/18/2009, 09/05/2008, Additional history exists ZOSTER VACCINE (1 of 2) 2025 DIABETES SCREENING 04/19/2028 04/19/2025, 0 04/18/2025, 04/18/2025 DTAP/TDAP/TD VACCINE (3 - Td or Tdap) 01/08/2035 01/08/2025, 06/03/2015 HPV VACCINE Aged Out No longer eligi ble based on patient's age to complete this topic MENINGITIS VACCINE Aged Out No longer eligible based on patient's age to complete this topic PNEUMOCOCCAL VACCINE: PEDIATRICS (0 to 5 YEARS) AND AT-RISK PATIENTS (6 to 49 YEARS) Aged Out No longer eligible based on patient's age to complete this topic Medical Devices Implanted Type Area Didactic Instructor Device Identifier Shelf Expiration Date Model / Serial / Lot Stent Ureteral Polaris Ultra [id number] - [id number] Implanted:Qty : 1 on 04/18/2025 by Tahira Castano MD at [facility] Stent Left: Ureter [employer] [id number] 01/15/2028 [id number] 20 / / [id number] Procedures * The patient is currently admitted. The information in this section might not be complete until the patient is discharged. Procedure Name Priority Date/Time Associated Diagnosis Comments CBC WITH PLATELETS & DIFFERENTIAL Routine 04/19/2025 7:12 AM CDT MANUAL DIFFERENTIAL Routine 04/19/2025 7 :12 AM CDT RBC AND PLATELET MORPHOLOGY Routine 04/19/2025 7:12 AM CDT CBC WITH PLATELETS AND DIFFERENTIAL Routine 04/19/2025 7:12 AM CDT MAGNESIUM Routine 04/19/2025 7:12 AM CDT BILIRUBIN DIRECT Routine 04/19/2025 7:12 AM CDT COMPREHENSIVE METABOLIC PANEL Routine 04/19/2025 7:12 AM CDT CBC WITH PLATELETS & DIFFERENTIAL Timed 04/18/2025 11:33 PM CDT MAGNESIUM Add-On 04/18/2025 11:33 PM CDT CBC WITH PLATELETS AND DIFFERENTIAL Timed 04/18/2025 11:33 PM CDT FIBRINOGEN ACTIVITY Timed 04/18/2025 1 1:33 PM CDT PARTIAL THROMBOPLASTIN TIME Timed 04/18/2025 11:33 PM CDT INR Timed 04/18/2025 11:33 PM CDT COMPREHENSIVE METABOLIC PANEL Timed 04/18/2025 11:33 PM CDT BLOOD CULTURE STAT 04/18/2025 10:20 PM CDT BLOOD MORPHOLOGY PATHOLOGIST REVIEW Routine 04/18/2025 10:14 PM CDT BLOOD CULTURE STAT 04/18/2025 10:14 PM CDT BLOOD MORPHOLOGY PATHOLOGIST REVIEW Routine 04/18/2025 10:14 PM CDT RBC AND PLATELET MORPHOLOGY Routine 04/18/2025 10:14 PM CDT MORPHOLOGY TRACKING Routine 04/18/2025 1 0:14 PM CDT RETICULOCYTE COUNT Routine 04/18/2025 10 :14 PM CDT CBC WITH PLATELETS AND DIFFERENTIAL Routine 04/18/2025 10:14 PM CDT LACTIC ACID WHOLE BLOOD WITH 1X REPEAT IN 2 HR WHEN >2 Routine 04/18/2025 10:14 PM CDT XR SURGERY YOSELIN FLUORO LESS THAN 5 MIN Routine 04/18/2025 9:44 PM CDT CYSTOSCOPY, WITH RETROGRADE PYELOGRAM AND URETERAL STENT INSERTION 04/18/2025 9:24 PM CDT Difficulty voiding ABO/RH TYPE AND SCREEN STAT 8:53 PM CDT TYPE AND SCREEN, ADULT STAT 8:53 PM CDT LACTATE DEHYDROGENASE STAT Add-on 04/18/2025 8:53 PM CDT HEPATIC FUNCTION PANEL STAT Add-on 8:53 PM CDT RBC AND PLATELET MORPHOLOGY STAT 04/18/2025 8:53 PM CDT BASIC METABOLIC PANEL STAT 04/18/2025 8:53 PM CDT FIBRINOGEN ACTIVITY Routine 04/18/2025 8 :53 PM CDT PARTIAL THROMBOPLASTIN TIME STAT 04/18/2025 8:53 PM CDT INR Routine 04/18/2025 8:53 PM CDT CBC WITH PLATELETS STAT 04/18/2025 8: 53 PM CDT from Last 3 Months Results * Manual Differential (04/19/2025 7:12 AM [...] - BLOOD ORDERABLES Fi nal Result LABORATORY [facility] [address] Lab (1st floor, no room number) [place] [address], [facility] * (ABNORMAL) RBC and Platelet Morphology (04/19/2025 7:12 AM CDT) Only the most recent of3 resultswithin the time period is included. Pathologist [facility] RBC Morphology Confirmed RBC Indices 04/19/2025 9:34 [...] BLOOD ORDERABLES Fi nal Result [facility] LABORATORY [facility] [address] [facility] ([facility], no room number) [place] [address] * (ABNORMAL) CBC with platelets and differential (04/19/2025 7:12 AM CDT) Only the most recent of3 resultswithin the time period is included. WBC Count 8.6 4.0 - 11.0 10e3/uL [...] ORDERABLES Fi nal Result Performing Organization Address City/[facility]/ZIP Co de Phone Number [facility] Lab [address] Lab (1st floor, no room number) [address] * Magnesium (04/19/2025 7:12 AM CDT) Only the most recent of2 resultswithin the time period is included. Magnesium 2.2 1.7 - 2.3 mg/dL 04/19/2025 7:48 AM CDT LABORATORY Blood STRUCTURE OF LEFT HAND / Unknown Venipuncture / Unknown 04/19/2025 7:12 AM CDT 04/19/2025 7:19 AM CDT Gagandeep Gates MD LAB - BLOOD ORDERABLES Fin al Result Performing Organization Address [facility] Co de Phone Number [facility] [address] Lab (1st floor, no room number) [address] * (ABNORMAL) Comprehensive metabolic panel (04/19/2025 7:12 AM CDT) Only the most recent of2 resultswithin the time period is included. Sodium 136 135 - 145 mmol/L 04/19/2025 [...] 7:48 AM CDT RH LABORATORY Comment:eGFR calculated us2020 CKD-EPI equation. Calcium 7.8(L) 8.8 - 10.4 [...] 0.8 <=1.2 mg/dL 04/19/2025 7:48 AM CDT LABORATORY Blood STRUCTURE OF LEFT HAND / Unknown Venipuncture / Unknown 04/19/2025 7:12 AM CDT 04/19/2025 7:19 AM CDT Trisha Aviles PA-C LAB - BLOOD ORDERABLES Fi nal Result LABORATORY [facility] [address] Lab (1st floor, no room number) [place] [address], [facility] * (ABNORMAL) Bilirubin direct (04/19/2025 7:12 AM CDT) Bilirubin Direct 0.31(H) 0.00 - 0.30 mg/dL 04/19/2025 7:48 AM CDT [facility] LABORATORY Comment:As of 25, refer ence ranges and trending lines may vary depending on the testing location. Blood STRUCTURE OF LEFT HAND / Unknown Venipuncture / Unknown 04/19/2025 7:12 AM CDT 04/19/2025 7:19 AM CDT Trisha Searsu PA-C LAB - BLOOD ORDERABLES Fi nal Result Performing Organization Address [facility] Co de Phone Number [facility] [address] Lab (1st floor, no room number) [place] [phone] * INR (04/18/2025 11:33 PM CDT) Only the most recent of2 resultswithin the time period is included. INR 0.95 0.85 - 1.15 04/19/2025 12:03 AM CDT RH LABORATORY PT 12.8 11.8 - 14.8 Seconds 04/19/2025 12:03 AM CDT RH LABORATORY Blood STRUCTURE OF RIGHT HAND / Unknown Venipuncture / Unknown 04/18/2025 11:33 PM CDT 04/18/2025 11:37 PM CDT Trisha Searsu PA-C LAB - BLOOD ORDERABLES Fi nal Result Performing Organization Address [facility] de Phone Number [facility] [address] Lab (1st floor, no room number) [place] [phone] * Partial thromboplastin time (04/18/2025 11:33 PM CDT) Only the most recent of2 resultswithin the time period is included. aPTT 34 22 - 38 Seconds 04/19/2025 12:03 AM CDT RH LABORATORY Blood STRUCTURE OF RIGHT HAND / Unknown Venipuncture / Unknown 04/18/2025 11:33 PM CDT 04/18/2025 11:37 PM CDT Trisha Ray Aviles PA-C LAB - BLOOD ORDERABLES Fi nal Result [facility] [address] Lab (1st floor, no room number) [place] [phone] * (ABNORMAL) Fibrinogen activity (04/18/2025 11:33 PM CDT) Only the most recent of2 resultswithin the time period is included. Fibrinogen Activity 681(H) 170 - 510 mg/dL 04/19/2025 12:05 AM CDT RH LABORATORY Blood STRUCTURE OF RIGHT HAND / Unknown Venipuncture / Unknown 04/18/2025 11:33 PM CDT 04/18/2025 11:37 PM CDT Trisha Ray Aviles PA-C LAB - BLOOD ORDERABLES Fi nal Result Performing Organization Address City/[facility]/ZIP Co de Phone Number [facility] [address] Lab (1st floor, no room number) [place] [address] * Morphology Tracking (04/18/2025 10:14 PM CDT) Blood STRUCTURE OF LEFT UPPER LIMB / Unknown Venipuncture / Unknown 04/18/2025 10:14 PM CDT 04/18/2025 10:23 PM CDT Trisha Terry Aviles PA-C LAB - BLOOD ORDERABLES Fi nal Result [facility] [address] Lab (1st floor, no room number) [place] [phone] * Lactic Acid Whole Blood with 1X Repeat in 2 HR when >2 (04/18/2025 10:14 PM CDT) Lactic Acid, Initial 0.9 0.7 - 2.0 mmol/L 04/18/2025 10:25 PM CDT RH LABORATORY Blood STRUCTURE OF LEFT UPPER LIMB / Unknown Venipuncture / Unknown 04/18/2025 10:14 PM CDT 04/18/2025 10:23 PM CDT us Raciel Martin MD LAB - BLOOD ORDERABLES Final Result [facility] [address] Lab (1st floor, no room number) [place] [address], [facility] * (ABNORMAL) Reticulocyte count (04/18/2025 10:14 PM CDT) % Reticulocyte 0.4(L) 0.5 - 2.0 % 04/18/2025 10:44 PM CDT LABORATORY Absolute Reticulocyte 0.012(L) 0.025 - 0.095 10e6/uL 04/18/2025 10:44 PM CDT LABORATORY Blood STRUCTURE OF LEFT UPPER LIMB / Unknown Venipuncture / Unknown 04/18/2025 10:14 PM CDT 04/18/2025 10:23 PM CDT us Trisha Aviles PA-C LAB - BLOOD ORDERABLES Fi nal Result Performing Organization Address City/[facility]/ZIP Co de Phone Number [facility] [address] [facility] (1st floor, no room number) [place] [address], [facility] * Bld morphology pathology review (04/18/2025 10:14 PM CDT) Final Diagnosis Peripheral blood for morphology: - Mild normochromic, normocytic anemia - Slight mature neutrophilia - Marked thrombocytopenia 04/19/2025 4:09 PM CDT [facility] at 1609 CDT Comment The clinical scenario of kidney stone and E. coli bacteremia is noted. Coagulation studies are normal and there is no evidence of a microangiopathic blood picture. The platelet count has improved slightly in the last few hours. 04/19/2025 4:09 PM CDT [facility] Clinical Information R/O DIC 04/19/2025 4:09 PM [facility] Peripheral Smear ERYTHROCYTES: [...] than 50: Marked thrombocytopenia 04/19/2025 4:09 PM [facility] Peripheral Hematologic Data [...] 0.2 <=0.4 10e3/uL Normal 04/19/2025 4:09 PM CDT [facility] Performing Labs The technical component of this testing was completed at [facility], [facility] and [facility] 04/19/2025 4:09 PM CDT [facility] Blood BLOOD SPECIMEN / Unknown [...] and are necessary for interpretation. us Trisha BERMAN AP Final Res ult Performing Organization Address City/[facility]/ZIP Co de Phone Number [facility] Lab [address] 1[address] Floor, [address], [place] [address] * XR Surgery YOSELIN L/T 5 Min Fluoro (04/18/2025 9:44 PM CDT) Narrative [facility] - 04/18/2025 9:45 PM CDT This exam was marked as non-reportable because it will not be read by a radiologist or a [facility] non-radiologist provider. us Tahira Castano MD IMG DIAGNOSTIC IMAGING ORDERA BLES Final Result [facility] * Adult Type and Screen (04/18/2025 8:53 [...] BLOOD BANK TEST O RDER Final Result Performing Organization Address [facility] Co de Phone Number [facility] BLOOD BANK [address] [place] [address] * Lactate Dehydrogenase (04/18/2025 8:53 PM CDT) Lactate Dehydrogenase 224 0 - 250 U/L 04/18/2025 10:13 PM CDT [facility] LABORATORY Blood STRUCTURE OF LEFT UPPER LIMB / Unknown Venipuncture / Unknown 04/18/2025 8:53 PM CDT 04/18/2025 8:58 PM CDT Trisha Aviles PA-C LAB - BLOOD ORDERABLES Fi nal Result Performing Organization Address City/[facility] Co de Phone Number LABORATORY [facility] [address] Lab (1st floor, no room number) [place] [address] * (ABNORMAL) Hepatic function panel (04/18/2025 8:53 PM CDT) Protein Total 5.6(L) 6.4 - 8.3 g/dL 04/18/2025 10:13 PM CDT [facility] LABORATORY Albumin 2.9(L) 3.5 - 5.2 g/dL 04/18/2025 10:13 PM CDT [facility] LABORATORY Bilirubin Total 1.3(H) <=1.2 mg/dL 04/18/2025 [...] PM CDT 04/18/2025 8:58 PM CDT us Trisha Aviles PA-C LAB - BLOOD ORDERABLES Fi nal Result LABORATORY [facility] [address] Lab (1st floor, no room number) [place] [address], [facility] * (ABNORMAL) Basic metabolic panel (04/18/2025 8:53 PM CDT) Sodium 137 135 - 145 mmol/L 04/18/2025 [...] 9:23 PM CDT [facility] LABORATORY Comment:eGFR calculated 2020 CKD-EPI equation. Calcium 8.0(L) 8.8 - 10.4 mg/dL 04/18/2025 9:23 PM CDT [facility] LABORATORY Glucose 106(H) 70 - 99 mg/dL 04/18/2025 9:23 PM CDT [facility] LABORATORY Blood STRUCTURE OF LEFT UPPER LIMB / Unknown Venipuncture / Unknown 04/18/2025 8:53 PM CDT 04/18/2025 8:58 PM CDT us Raciel Martin MD LAB - BLOOD ORDERABLES Final Result [facility] LABORATORY [facility] [address] Lab (1st floor, no room number) [place] [address], [facility] * (ABNORMAL) CBC with platelets [...] MD LAB - BLOOD ORDERABLES Final Result [facility] LABORATORY [facility] [address] Lab (1st floor, no room number) [place] [address], [facility] from Last 3 Months Advance Directives For more information, please contact: [phone] * Full Code (Latest Code Status on File) Date Activated Date Inactivated Comments 04/18/2025 11:18 PM All basic and advanced life-sustaining interventions are performed as appropriate Question Answer Comments Code status determined by: Discussion with patie nt/ legal decision maker Care Teams Coke Drawer Hand Relationship Specialty Start Date End Date No Ref-Primary, Physician PCP - General 04/18/25
--- OUTSIDE RECORDS SUMMARY | 2025-04-20 00:24 | XMS_ITS | Encounter Summary ---
Author Organization [facility] Address [address] [place] [address] Care Team Providers Care Waste Removalist Name Role Phone Unavailable Primary Care Provider Unavailabl e Encounter Details Date Type Department Care Team (Late st Contact Info) Description 04/18/2025 Documentation Department of Urology in [place], [place] [address] [place] [phone] Gin Salamanca M.D. [address] [place] [phone] Social History Tobacco Use Types Packs/Day Years Used Date Smoking Tobacco: Never Nutrition Answer Date Recorded Nutrition: EVOO Fat Source Unknown 01/01 Nutrition: Servings of Fruits/Vegetables per Day Not on file 01/01/2021 Dental Answer Date Recorded Dental: Regular Dentist Unknown 01/02/20 21 Comments Unknown Sex and Gender Information Value Date Recorded Sex Assigned at Not on file Legal Sex Female 2:20 AM ICT ANALYST Gender Identity Not on file Sexual Orientation Not on file documented as of this encounter Progress Notes * Gin Salamanca M.D. - 04/18/2025 5:43 PM CDT UROLOGY PROGRESS NOTE Received ATC call regarding symptomatic nephrolithiasis and possible concomitant infection. At the time of return call the facility had already received acceptance to another hospital. No additional action required. documented in this encounter Plan of Treatment Not on file documented as of this encounter Visit Diagnoses Not on filedocumented in this encounter
--- OUTSIDE RECORDS SUMMARY | 2025-04-20 00:24 | XMS_ITS | Clinical Summary ---
Author Organization [facility] Address [address] [place] [address] Care Team Providers Care Precision Instrument And Tool Maker Name Role Phone Unavailable Primary Care Provider Unavailabl e Source Comments Patient records contain information from all sites at [facility]. For routine questions regarding patient records, call [phone] during business hours, M-F 8:00 AM - 5:00 PM Central Time. Record requests for emergency care only can be directed to [phone] at any time.[facility] Allergies No known active allergies [...] Date Type Department Care Team Description 04/18/2025 Documentation Department of Urology in [place], [place] [address] [place] [address] Gin Salamanca M.D. 04/18/2025 Intake [facility] from Last 3 Months Immunizations Immunization Administration Dates Next Due Influenza [...] on file Legal Sex Female 2:20 AM LAB MANAGER Gender Identity Not on file Sexual Orientation Not on file Last Filed Vital Signs Vital Sign Reading Time Taken Comments Blood Pressure 174/72 04/18/2025 4:30 PM CDT Pulse 63 04/18/2025 4:30 PM CDT Temperature - - Respiratory Rate 18 04/18/2025 4:30 PM CDT Oxygen Saturation 98% 04/18/2025 4:30 PM CDT Inhaled Oxygen Concentration - - Weight 51.1 kg (112 lb 10.5 oz) 09/28/2014 2:23 PM LAB MANAGER Height - - Body Mass Index [...] Procedure Name Priority Date/Time Associated Diagnosis Comments OUTSIDE CT BODY Routine 04/18/2025 4:[address] BODY Routine 04/18/2025 3:20 PM CDT from Last 3 Months Results * CT Angio Chest PE Protocol-Outside CT Body (04/18/2025 4:50 PM CDT) Only the most recent of2 resultswithin the time period is included. 04/18/2025 4:47 PM CDT Narrative [facility] - 04/18/2025 5:27 PM CDT This order has been created and auto-finalized to support the import of outside images. If available, original interpretation can be found on the Media Tab in Chart Review, in Document Viewer, as an image in InfinityView or as an Addendum. If a re-interpretation or overread is required please follow defined workflow. us Provider Not In System IMG CT PROCEDURES Final R esult [facility] NA from Last 3 Months Insurance [place] [address]
--- OUTSIDE RECORDS SUMMARY | 2025-04-20 00:24 | XMS_ITS | Encounter Summary ---
Author Organization [facility] Address [address] [place] [address] Care Team Providers Care Tomahawk Weapon System Operator Name Role Phone Unavailable Primary Care Provider Unavailabl e Encounter Details Date Type Department Care Team (Latest Contact Info) Description 04/18/2025 Intake [facility] Social History Tobacco Use Types Packs/Day Years Used Date Smoking Tobacco: Never Nutrition Answer Date Recorded Nutrition: EVOO Fat Source Unknown 01/01 Nutrition: Servings of Fruits/Vegetables per Day Not on file 01/01/2021 Dental Answer Date Recorded Dental: Regular Dentist Unknown 01/02/20 21 Comments Unknown Sex and Gender Information Value Date Recorded Sex Assigned at Not on file 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
--- OUTSIDE RECORDS SUMMARY | 2025-04-20 00:24 | XMS_ITS | Clinical Summary ---
Author Organization [facility] Address [address] [place] [id number] Care Team Providers Care Engineering Professor Name Role Phone Clinic, No Pcp Or [...] on file Legal Sex Female 3:19 PM CHAIR CANER Gender Identity Not on file Sexual Orientation Not on file Obstetrics History Last Filed Vital Signs Vital Sign Reading Time Taken Comments Blood Pressure 94/60 12/23/2016 8:39 AM CHAIR CANER Pulse 67 12/23/2016 8:39 AM CHAIR CANER Temperature 36.8 C (98.2 F) 10/29/2014 1:49 PM CHAIR CANER Respiratory Rate 16 09/28/2014 3:26 PM CHAIR CANER Oxygen Saturation 97% 12/23/2016 8:39 AM CHAIR CANER Inhaled Oxygen Concentration - - Weight 54.7 kg (120 lb 9.6 oz) 12/23/2016 8:39 A M CHAIR CANER Height - - Body Mass Index - [...] Procedure Name Priority Date/Time Associated Diagnosis Comments FUEL RETROFITTING TECHNICIAN THIN PREP PAP SCREEN IMAGED Routine 04/18/2021 9:55 AM CDT from Last 3 Months or Most Recently Relevant to Health Maintenance Results * FUEL RETROFITTING TECHNICIAN THIN PREP PAP SCREEN IMAGED (04/18/2021 9:55 AM CDT) Case Report Gynecologic Cytology Report Case: [id number] Authorizing Provider: Carito Machado MD Collected: 04/18/2021 0955 Ordering Location: [facility] Received: 04/21/2021 0936 First Screen: Wendy Morris Specimen: FUEL RETROFITTING TECHNICIAN ThinPrep Vial Screening, Cervical/Vaginal 04/30/2021 1:47 PM CDT [facility] INTERPRETATION/ RESULT NEGATIVE FOR INTRAEPITHELIAL LESION OR MALIGNANCY (NIL) (none) 04/30/2021 1:47 PM CDT [facility] at 1347 CDT SPECIMEN ADEQUACY Satisfactory for evaluation Endocervical component present 04/30/2021 1:47 PM CDT [facility] HPV REQUEST HPV and PAP 04/30/2021 1:47 PM CDT [facility] Date of LMP 03/03/2021 04/30/2021 1:47 PM CDT [facility] Last Pap Date 11/03/2016 04/30/2021 1:47 PM CDT [facility] Last Pap Result NIL 1:47 PM CDT [facility] Additional Information 04/30/2021 1:47 PM CDT [facility] Comment: Interpreted at [facility] - [address], [place] [address] Automated Review Successful 04/30/2021 1:47 PM CDT [facility] Comment:Specimen processed s uccessfully by automated composite bond worker device, ThinPrep Imaging System, [employer] ANCILLARY TESTING FUEL RETROFITTING TECHNICIAN HPV Ordered, Please see separate report 04/30/2021 1:47 PM CDT [facility] Note The pap test [...] and malignant lesions. 04/30/2021 1:47 PM CDT [facility] Other (Cervical/Vagina l) 04/18/2021 9:55 AM CDT 04/21/2021 9:36 AM CDT us Carito Machado MD PATHOLOGY/CYTOLOGY Final R esult [facility] [address] [place] [address], from Last 3 Months or Most Recently Relevant to Health Maintenance Insurance [facility] [place] Care Teams Engineering Professor Relationship Specialty Start Date End Date Clinic, No Pcp Or . PCP - General 09/28/14
== END 2025-04-18 19:10 | disposition home or self-care (01) ==
LOC: AMB 04-19 12:06
PROVIDERS: PCP Registered Nurse; Visit Provider Emergency Medicine
DX: R78.81 Bacteremia (principal); N20.0 Calculus of kidney
CPT/HCPCS: A0425; A0434